=== PATIENT | male | born 1940 | race Caucasian/White ===

== ENCOUNTER → 2016-08-12 | Outpatient (CLI) | payer MEDICARE, BC | LOC: MW.CHIM 08:00 | PROVIDERS: ATTEND Internal Medicine | DX: I10 Essential (primary) hypertension (principal); E78.5 Hyperlipidemia, unspecified; M19.049 Primary osteoarthritis, unspecified hand; Z90.79 Acquired absence of other genital organ(s) | CPT/HCPCS: 99214 ==

== ENCOUNTER 2017-07-23 07:10 | Day surgery (SDC) | payer MEDICARE, BC ==
[2017-07-23] MEDS ORDERED: Propofol 200 MG/20 ML SDV ONE (07:15)
[2017-07-23] MEDS ORDERED: fentaNYL 100 MCG/2 ML SDV ONE (07:15)
[2017-07-23] MEDS ORDERED: Lidocaine 2% 5 ML SDV ONE (07:15)
[2017-07-23] MEDS ORDERED: Bupivacaine 25%/EPINEPHrine/PF 30 ML ONE (07:33)
[2017-07-23] MEDS ORDERED: ceFAZolin/Dextrose,Iso-Osmotic 2 GM/50 ML Duplex Bag IV ONE (07:56)
--- NOTE | 2017-07-23 07:59 | PCM.PREANE ---
Preanesthetic Assessment - Anesthesia/Transfusion/Family Hx Anesthesia History: Prior Anesthesia Without Reaction Transfusion History: Prior Transfusion Without Reaction - Review of Systems General: No Symptoms Pulmonary: No Symptoms Cardiovascular: No Symptoms (took am metoprolol) Gastrointestinal: No Symptoms Neurological: Other (bilateral hand pain/numbnesss) Other: Reports: None - Physical Assessment NPO Status Date: 07/22/17 NPO Status Time: 22:00 O2 Sat by Pulse Oximetry: 94 Respiratory Rate: 16 Vital Signs: Last Vital Signs Temp 97.5 F 07/23/17 07:15 Pulse 69 07/23/17 07:15 Resp 16 07/23/17 07:15 BP 133/84 07/23/17 07:15 Pulse Ox 94 L 07/23/17 07:15 Height: 5 ft 6 in Weight: 172 lb ASA Class: 3 Mental Status: Alert & Oriented x3 Airway Class: Mallampati = 2 Dentition: Reports: Normal Dentition, [place](s) Thyro-Mental Finger Breadths: 3 Mouth Opening Finger Breadths: 3 ROM/Head Extension: Full Lungs: Clear to Auscultation, Normal Respiratory Effort Cardiovascular: Regular Rate, No Murmurs - Allergies Allergies/Adverse Reactions: Allergies Allergy/AdvReac Type Severity Reaction Status Date / Time No Known Allergies Allergy Verified 07/21/17 09:18 - Blood Blood Available: No Product(s) Available: None - Anesthesia Plan Pre-Op Medication Ordered: None - Acknowledgements Anesthesia Type Planned: MAC (local by surgeon) Pt an Appropriate Candidate for the Planned Anesthesia: Yes Alternatives and Risks of Anesthesia Discussed w Pt/Guardian: Yes Pt/Guardian Understands and Agrees with Anesthesia Plan: Yes PreAnesthesia Questionnaire HEENT History: Reports: Other (See Below) Other HEENT History: wears glasses, has upper denture and lower partial removable denture Cardiovascular History: Reports: High Cholesterol, Hypertension Genitourinary History: Reports: Other (See Below) Other Genitourinary History: hx of prostate cancer Musculoskeletal History: Reports: Arthritis, Gout Other Musculoskeletal History: hx of arthritis in hands Oncologic (Cancer) History: Reports: Prostate - Past Surgical History Male Surgical History: Reports: Prostatectomy Other Male Surgeries/Procedures: Radical Retropubic Prostatectomy Neurological Surgical History: Reports: Laminectomy Other Oncologic Surgeries/Procedures: prostatectomy - SUBSTANCE USE Smoking Status *Q: Never Smoker Second Hand Smoke Exposure: No Days Per Week of Alcohol Use: 5 Number of Drinks Per Day: 2 Total Drinks Per Week: 10 Recreational Drug Use History: No - HOME MEDS Home Medications: Home Meds Aspirin [Adult Low Dose Aspirin EC] 81 mg PO ASDIRECTED 07/21/17 [History] Diclofenac Sodium 1 dose TOP QID PRN 07/21/17 [History] Lisinopril 20 mg PO DAILY 07/21/17 [History] Metoprolol Succinate 25 mg PO DAILY 07/21/17 [History] atorvaSTATin Calcium [Atorvastatin Calcium] 10 mg PO BEDTIME 07/21/17 [History] - CURRENT (IN HOUSE) MEDS Current Meds: Current Medications Bupivacaine HCl/Epinephrine Bitart (Marcaine 0.25%/Epinephrine 1:200,000) 10 ml INJECT ONETIME ONE Stop: 07/23/17 08:01 Cefazolin Sodium/Dextrose 2 gm (/ Premix) 50 mls @ 100 mls/hr IV ONETIME ONE Stop: 07/23/17 08:29 Lactated Ringer's (Ringers, Lactated) 1,000 mls @ 125 mls/hr IV ASDIRECTED COUNTS INCLUDE 234 BEDS AT THE [facility] Last Admin: 07/23/17 07:39 Dose: 125 mls/hr Tramadol HCl (Ultram) 50 mg PO Q4H PRN PRN Reason: Pain Discontinued Medications Fentanyl (Sublimaze) Confirm Administered Dose 100 mcg .ROUTE .STK-MED ONE Stop: 07/23/17 07:16 Bupivacaine HCl/Epinephrine Bitart (Sensorc Mpf 0.25%-Epi [id number]) Confirm Administered Dose 30 mls @ as directed .ROUTE .STK-MED ONE Stop: 07/23/17 07:34 Lidocaine (Xylocaine-Mpf 2%) Confirm Administered Dose 5 ml .ROUTE .STK-MED ONE Stop: 07/23/17 07:16 Propofol (Diprivan 20 Ml) Confirm Administered Dose 400 mg .ROUTE .STK-MED ONE Stop: 07/23/17 07:16
[2017-07-23] MEDS ORDERED: Bupivacaine 0.25%/EPINEPHrine 1:200,000 10 ML SDV INJECT ONE (08:00)
[2017-07-23] MEDS ORDERED: Lactated Ringers 1,000 ML IV SCH (08:00)
[2017-07-23] MEDS ORDERED: traMADol 50 MG Tab PO PRN (08:00)
[2017-07-23] MEDS ORDERED: ceFAZolin 2 GM in Premix Bag 1 BAG IV ONE (08:00)
--- NOTE | 2017-07-23 09:15 | PCM48HPAN ---
Post Anesthesia Note - EVALUATION WITHIN 48HRS OF ANESTHETIC Vital Signs in Normal Range: Yes Patient Participated in Evaluation: Yes Respiratory Function Stable: Yes Airway Patent: Yes Cardiovascular Function Stable: Yes Hydration Status Stable: Yes Pain Control Satisfactory: Yes Nausea and Vomiting Control Satisfactory: Yes Mental Status Recovered: Yes Resp Rate: 16 - COMMENTS/OBSERVATIONS Free Text/Narrative:: direct to phase 2 PACU, fully awake
[2017-07-23 09:33] VITALS: BP 110/59
--- NOTE | 2017-07-26 12:36 | PCM.OPNOTE ---
- General Post-Op/Procedure Note Date of Surgery/Procedure: 07/23/17 Operative Procedure(s): right carpal tunnel release Pre Op Diagnosis: right carpal tunnel syndrome Post-Op Diagnosis: Same Anesthesia Technique: Local, MAC Primary Surgeon: Radha Acuña [employer] Blasting: Violet David Complications: None Condition: Good
--- NOTE | 2017-07-26 20:41 | OR ---
SURGEON: BRETT CARRILLO MD DATE OF PROCEDURE: 07/23/2017 PREOPERATIVE DIAGNOSIS: Right carpal tunnel syndrome. POSTOPERATIVE DIAGNOSIS: Right carpal tunnel syndrome. PROCEDURE: Right carpal tunnel release. FIELD OPERATOR: MELE Hernandez ANESTHESIA: Local MAC. INDICATIONS: The patient is a 77-year-old gentleman seen today in evaluation for carpal tunnel syndrome. He does have significant involvement with permanent numbness and lacks improvement with conservative management. Risks and benefits were included, but not limited to, bleeding, infection, damage to underlying or overlying structures, possible need for future interventions, possible scarring. He also understands that he may not get full recovery given this extent of involvement. He would like to proceed. PROCEDURE IN DETAIL: After informed consent was obtained and placed on the chart, the patient was brought to the operating theater in supine position. After adequate anesthesia was obtained, the area was prepped and draped in normal fashion. Time-out was completed to confirm site and side. 0.25% Marcaine with epinephrine was injected into the area of the median nerve in a field block. The arm was then exsanguinated and the tourniquet was insufflated to 200 mmHg. Attention was then paid to dissection over the transverse carpal ligament and dissection was carried through the skin and subcutaneous tissues using a 15 blade until the ligament was reached. Once reached, dissection was carried distally and proximally under direct visualization using a Littler scissor. Once adequately released, the area was copiously irrigated and closed using a 5- 0 nylon stitch in a horizontal mattress fashion. The wound was then dressed with Xeroform fluffs and a Kerlix gauze dressing and a 2-inch Krish wrap. The tourniquet was desufflated at the end of the case. The patient tolerated the procedure well. All counts needles were correct at the end of the case. FOLLOWUP INSTRUCTIONS: The patient will see us in 10 to 14 days, sooner if any problems, questions, or concerns. He was given a prescription for pain control, if needed tramadol. HEGGTHE / ELEONORA /[id number]
== END 2017-07-23 09:26 | disposition home or self-care (01) ==
LOC: MW.SDS 07:10
PROVIDERS: ATTEND Plastic Surgery
DX: G56.01 Carpal tunnel syndrome, right upper limb (principal); E11.9 Type 2 diabetes mellitus without complications; E78.5 Hyperlipidemia, unspecified; I10 Essential (primary) hypertension; Z79.82 Long term (current) use of aspirin; Z79.899 Other long term (current) drug therapy; Z72.0 Tobacco use
CPT/HCPCS: 64721; J0690; J3010; J7120; 01810; J2704

== ENCOUNTER 2017-08-18 06:39 | Day surgery (SDC) | payer MEDICARE, BC ==
--- NOTE | 2017-08-18 07:04 | PCM.PREANE ---
Preanesthetic Assessment - Anesthesia/Transfusion/Family Hx Anesthesia History: Prior Anesthesia Without Reaction Family History of Anesthesia Reaction: No Transfusion History: No Prior Transfusion(s) Intubation History: Unknown - Review of Systems General: No Symptoms Pulmonary: No Symptoms Cardiovascular: No Symptoms Gastrointestinal: No Symptoms Neurological: No Symptoms Other: Reports: None - Physical Assessment Height: 1.68 m Weight: 78.018 kg ASA Class: 2 Mental Status: Alert & Oriented x3 Airway Class: Mallampati = 2 Dentition: Reports: Dentures (upper), Partial (lower) Thyro-Mental Finger Breadths: 3 Mouth Opening Finger Breadths: 3 ROM/Head Extension: Full Lungs: Clear to Auscultation, Normal Respiratory Effort Cardiovascular: Regular Rate, Regular Rhythm - Allergies Allergies/Adverse Reactions: Allergies Allergy/AdvReac Type Severity Reaction Status Date / Time No Known Allergies Allergy Verified 07/21/17 09:18 - Blood Blood Available: No - Anesthesia Plan Pre-Op Medication Ordered: None Beta Donaldo: Metoprolol Med Last Dose Date: 08/18/17 Med Last Dose Time: 05:30 - Acknowledgements Anesthesia Type Planned: MAC Pt an Appropriate Candidate for the Planned Anesthesia: Yes Alternatives and Risks of Anesthesia Discussed w Pt/Guardian: Yes Pt/Guardian Understands and Agrees with Anesthesia Plan: Yes PreAnesthesia Questionnaire HEENT History: Reports: Other (See Below) Other HEENT History: wears glasses, has upper denture and lower partial removable denture Cardiovascular History: Reports: High Cholesterol, Hypertension Genitourinary History: Reports: Other (See Below) Other Genitourinary History: hx of prostate cancer Musculoskeletal History: Reports: Arthritis, Gout Other Musculoskeletal History: hx of arthritis in hands Oncologic (Cancer) History: Reports: Prostate - Past Surgical History Head Surgeries/Procedures: Reports: None Male Surgical History: Reports: Prostatectomy Other Male Surgeries/Procedures: Radical Retropubic Prostatectomy Neurological Surgical History: Reports: Laminectomy Musculoskeletal Surgical History: Reports: Carpal Tunnel (right) Other Oncologic Surgeries/Procedures: prostatectomy - SUBSTANCE USE Smoking Status *Q: Never Smoker Second Hand Smoke Exposure: No Days Per Week of Alcohol Use: 5 Number of Drinks Per Day: 2 Total Drinks Per Week: 10 Recreational Drug Use History: No - HOME MEDS Home Medications: Home Meds Aspirin [Adult Low Dose Aspirin EC] 81 mg PO ASDIRECTED 07/21/17 [History] Diclofenac Sodium 1 dose TOP QID PRN 07/21/17 [History] Lisinopril 20 mg PO DAILY 07/21/17 [History] Metoprolol Succinate 25 mg PO DAILY 07/21/17 [History] atorvaSTATin Calcium [Atorvastatin Calcium] 10 mg PO BEDTIME 07/21/17 [History] traMADol [Ultram] 50 mg PO Q4H PRN #30 tablet 07/23/17 [Rx] - CURRENT (IN HOUSE) MEDS Current Meds: Current Medications Bupivacaine HCl/Epinephrine Bitart (Marcaine 0.25%/Epinephrine 1:200,000) 10 ml INJECT ONETIME ONE Stop: 08/18/17 08:01 Cefazolin Sodium/Dextrose 2 gm (/ Premix) 50 mls @ 100 mls/hr IV ONETIME ONE Stop: 08/18/17 08:29 Lactated Ringer's (Ringers, Lactated) 1,000 mls @ 125 mls/hr IV ASDIRECTED ZOHAIB Tramadol HCl (Ultram) 50 mg PO Q4H PRN PRN Reason: Pain
[2017-08-18] MEDS ORDERED: Bupivacaine 25%/EPINEPHrine/PF 30 ML ONE (07:17)
[2017-08-18] MEDS ORDERED: Lidocaine 2% 5 ML SDV ONE (07:21)
[2017-08-18] MEDS ORDERED: Propofol 200 MG/20 ML SDV ONE (07:21)
[2017-08-18] MEDS ORDERED: fentaNYL 100 MCG/2 ML SDV ONE (07:21)
[2017-08-18] MEDS ORDERED: ceFAZolin/Dextrose,Iso-Osmotic 2 GM/50 ML Duplex Bag IV ONE (07:23)
[2017-08-18] MEDS ORDERED: Bupivacaine 0.25%/EPINEPHrine 1:200,000 10 ML SDV INJECT ONE (08:00)
[2017-08-18] MEDS ORDERED: ceFAZolin 2 GM in Premix Bag 1 BAG IV ONE (08:00)
[2017-08-18] MEDS ORDERED: traMADol 50 MG Tab PO PRN (08:00)
[2017-08-18] MEDS ORDERED: Lactated Ringers 1,000 ML IV SCH (08:00)
--- NOTE | 2017-08-18 08:47 | PCM.POSTAN ---
POST ANESTHESIA ASSESSMENT - MENTAL STATUS Mental Status: Alert, Oriented - RESPIRATORY Respiratory Status: Respiratory Rate WNL, Airway Patent, O2 Saturation Stable - CARDIOVASCULAR CV Status: Pulse Rate WNL, Blood Pressure Stable - GASTROINTESTINAL GI Status: No Symptoms - PAIN Pain Score: 0 - POST OP HYDRATION Hydration Status: Adequate & Stable - OBSERVATIONS Free Text/Narrative:: No anesthesia complications
--- NOTE | 2017-08-18 08:51 | PCM48HPAN ---
Post Anesthesia Note - EVALUATION WITHIN 48HRS OF ANESTHETIC Vital Signs in Normal Range: Yes Patient Participated in Evaluation: Yes Respiratory Function Stable: Yes Airway Patent: Yes Cardiovascular Function Stable: Yes Hydration Status Stable: Yes Pain Control Satisfactory: Yes Nausea and Vomiting Control Satisfactory: Yes Mental Status Recovered: Yes Resp Rate: 12 - COMMENTS/OBSERVATIONS Free Text/Narrative:: no anesthesia problems
[2017-08-18 10:02] VITALS: BP 111/69
--- NOTE | 2017-08-18 15:46 | PCM.OPNOTE ---
- General Post-Op/Procedure Note Date of Surgery/Procedure: 08/18/17 Operative Procedure(s): left carpal tunnel release Pre Op Diagnosis: left carpal tunnel syndrome Post-Op Diagnosis: Same Anesthesia Technique: Local, MAC Primary Surgeon: Radha Acuña [employer] Receptionist: Violet David Complications: None Condition: Good Free Text/Narrative:: Intake & Output 08/17/17 08/18/17 08/18/17 23:59 07:59 15:59 Intake Total 850 Balance 850
--- NOTE | 2017-08-23 09:57 | OR ---
SURGEON: RADHA ACUÑA MD DATE OF PROCEDURE: 08/18/2017 PREOPERATIVE DIAGNOSIS: Left carpal tunnel syndrome. POSTOPERATIVE DIAGNOSIS: Left carpal tunnel syndrome. PROCEDURE PERFORMED: Left carpal tunnel release. PRIMARY SURGEON: Radha Acuña MD AGRICULTURAL PRODUCE SORTER: MELE Hernandez ANESTHESIA: Local MAC. INDICATIONS: Mr. Clements is a 77-year-old gentleman with carpal tunnel syndrome on the left side. He has previously had a right release and has done well with this. He is here for left release. The risks and benefits were again discussed, and all questions answered. Risks were including, but not limited to, bleeding, infection, damage to underlying or overlying structures, possible need for future interventions, and possible scarring. PROCEDURE IN DETAIL: After informed consent was obtained and placed on the chart, the patient was brought to the operating theater and laid in the supine position. After adequate local MAC anesthesia was obtained, the area was prepped and draped, and a time-out was completed to confirm side and site. The arm was exsanguinated, and tourniquet was insufflated to 200 mmHg, and then a #15 blade was used to dissect over the skin and subcutaneous tissue on the transverse carpal ligament. The ligament was breached, and dissection was then carried distally and proximally under direct visualization using a Littler scissor. Once adequately released, the area was copiously irrigated, and the skin was closed using 5-0 nylon stitch in a horizontal mattress fashion. The wounds were dressed with Xeroform, fluffs, and a Kerlix gauze dressing and a 2- inch Krish wrap. The patient tolerated this well. All counts and needles were correct at the end of the case. FOLLOWUP INSTRUCTIONS: The patient did not use any tramadol last time and still has residuals if needed. He will follow up with us in 2 weeks or sooner if there are any problems, questions, or concerns. HEGGTHE / MODL /[id number]
== END 2017-08-18 08:58 | disposition home or self-care (01) ==
LOC: MW.SDS 06:39
PROVIDERS: ATTEND Plastic Surgery
DX: G56.02 Carpal tunnel syndrome, left upper limb (principal); E11.9 Type 2 diabetes mellitus without complications; E78.5 Hyperlipidemia, unspecified; I10 Essential (primary) hypertension; Z79.82 Long term (current) use of aspirin; Z72.0 Tobacco use
CPT/HCPCS: 64721; J0690; J3010; J7120; J2704

== ENCOUNTER 2018-10-16 23:41 | Observation (INO) | payer MEDICARE, BC ==
[2018-10-16] MEDS ORDERED: Sodium Chloride 0.9% 10 ML Syringe FLUSH PRN (23:52)
[2018-10-16] MEDS ORDERED: Sodium Chloride 0.9% 2.5 ML Syringe FLUSH PRN (23:52)
[2018-10-16] MEDS ORDERED: Sodium Chloride 0.9% 1,000 ML IV ONE (23:53)
--- NOTE | 2018-10-16 23:58 | EDM.PDOC ---
ED HPI GENERAL MEDICAL PROBLEM - General Stated Complaint: AMB Time Seen by Provider: 10/16/18 23:46 - History of Present Illness INITIAL COMMENTS - FREE TEXT/NARRATIVE: HISTORY AND PHYSICAL: History of present illness: The patient is a 78-year-old male who follows and in our internal medicine clinic and has a history of hypercholesterolemia hypertension prostate cancer in the past and is currently being followed there for new hematuria and presents with a near syncopal event. The patient takes an aspirin daily and says that he got woozy/lightheaded when he got up to go to the bathroom and he went to his knees and then proceeded to collapse to the floor. He did not hit his head pass out or blackout and he did not completely pass out but he felt very weak. He had no chest pain shortness of breath palpitations or headache prior to these events nor after these events. He has no abdominal pain vomiting or diarrhea. He says these having hematuria and he is voiding but the stream is not very strong but he does not feel like he is incompletely voiding. He has no back or flank pain. As a result of going to his knees and the ground he has no extremity complaints or any bony tenderness. The patient tells me that he has actually no complaints of pain palpitations shortness of breath while lying in the bed here in the ED. He does admit that he doesn't drink a lot of fluids on a regular basis. This case was called as a trauma alert because the patient fell and is on daily aspirin. The patient has had labs done recently in the clinic on Wednesday which I will review Review of systems: As per history of present illness and below otherwise all systems reviewed and negative. Past medical history: As per history of present illness and as reviewed below otherwise noncontributory. Surgical history: As per history of present illness and as reviewed below otherwise noncontributory. Social history: No reported history of drug or alcohol abuse. Family history: As per history of present illness and as reviewed below otherwise noncontributory. Physical exam: General: Well-developed well-nourished man who is nontoxic and moves easily in the ED without distress. He speaking clearly without distress. Vital signs are noted by me HEENT: Atraumatic, normocephalic, pupils reactive, there is slight conjunctival pallor but no scleral icterus, mucous membranes moist, throat clear, neck supple , nontender, trachea midline. Lungs: Clear to auscultation, breath sounds equal bilaterally, chest nontender. Heart: S1S2, regular, negative for clicks, rubs, or JVD. Abdomen: Soft, nondistended, nontender. Negative for masses or hepatosplenomegaly. Negative for costovertebral tenderness. Pelvis: Stable nontender. Genitourinary: Deferred. Rectal: Deferred. Extremities: Atraumatic, negative for cords or calf pain. Neurovascular unremarkable. Full range of motion without any defects or deficits specifically the knees bilaterally have no soft tissue swelling or tenderness Neuro: Awake, alert, oriented. Cranial nerves II through XII unremarkable. Cerebellum unremarkable. Motor and sensory unremarkable throughout. Exam nonfocal. Back: There are no midline step-offs in his defects of the thoracic or lumbar spine nor the cervical spine and there is no soft tissue injuries appreciated Diagnostics: EKG CBC CMP INR CPK troponin TSH UA with reflex bladder scan for postvoid residual CT scan of the head chest x-ray orthostatic vitals Therapeutics: IV O2 monitor IV fluids As this case was called at a trauma alert I will involve the trauma surgeon as needed pending the results of above On October 10 the patient had a CBC revealing a WBC count of 6.86 and hemoglobin of 14.1 and a UA which was grossly bloody with RBCs but the culture was negative. The patient had a CPK done on October 14 that was [address] scan of the abdomen and pelvis on October 13 which revealed a right pelvic sidewall mass with markedly irregular calcifications within the prostate gland. There was a suspected urinary bladder mass also present and the findings were worrisome for malignancy. Patient produced only a small amount of bloody urine without clots but his postvoid residual was only 38 mL. Orthostatic vitals are positive with his blood pressure in the supine position being 104/56 and a heart rate of 66 and in the upright position his blood pressure was 75/43 with a heart rate of 86 and he is currently receiving IV fluids I discussed all testing results with the patient and at bedside. They have an appointment with Dr. Mccall on Wednesday and are supposed to get a CAT scan with contrast performed later today at 11 AM. I discussed with them that this may not occur and may need to be rescheduled and to mention that to the nurse when he is on the floor this morning. I told him that although currently he is not anemic that may change after his fluid resuscitation. He currently looks much improved with good coloring and is in good spirits without any complaints. Able to admission 0156: Case was discussed with Dr. Faustin and he agrees that this is not a trauma admission and is comfortable with the patient being admitted to the hospitalist with him available as needed. 0200: Case was discussed with Dr. Pearl who is aware of this case completely and the care plan done as an outpatient and now here in the ED and is agreeable for admission. He is aware of my conversation with Dr. Faustin. Impression: Near syncope; history of hematuria with new bladder mass Definitive disposition and diagnosis as appropriate pending reevaluation and review of above. - Related Data Allergies Allergy/AdvReac Type Severity Reaction Status Date / Time No Known Allergies Allergy Verified 10/17/18 00:07 Home Meds: Home Meds Aspirin [Adult Low Dose Aspirin EC] 81 mg PO ASDIRECTED 07/21/17 [History] Lisinopril 20 mg PO DAILY 07/21/17 [History] Metoprolol Succinate 25 mg PO DAILY 07/21/17 [History] atorvaSTATin Calcium [Atorvastatin Calcium] 10 mg PO BEDTIME 07/21/17 [History] Past Medical History HEENT History: Reports: Other (See Below) Other HEENT History: wears glasses, has upper denture and lower partial removable denture Cardiovascular History: Reports: High Cholesterol, Hypertension Genitourinary History: Reports: Other (See Below) Other Genitourinary History: hx of prostate cancer Musculoskeletal History: Reports: Arthritis, Gout Other Musculoskeletal History: hx of arthritis in hands Oncologic (Cancer) History: Reports: Prostate - Past Surgical History Head Surgeries/Procedures: Reports: None Male Surgical History: Reports: Prostatectomy Other Male Surgeries/Procedures: Radical Retropubic Prostatectomy Neurological Surgical History: Reports: Laminectomy Musculoskeletal Surgical History: Reports: Carpal Tunnel Other Oncologic Surgeries/Procedures: prostatectomy ED ROS GENERAL - Review of Systems Review Of Systems: ROS reveals no pertinent complaints other than HPI. ED EXAM, GENERAL - Physical Exam Exam: See Below (See dictation) Course - Vital Signs Last Recorded V/S: Last Vital Signs Temp 35.6 C 10/16/18 23:43 Pulse 71 10/16/18 23:43 Resp 18 10/16/18 23:43 BP 138/67 10/16/18 23:43 Pulse Ox 96 10/17/18 01:10 Orthostatic Blood Pressure [ 75/43 Standing] Orthostatic Blood Pressure [ 99/53 Sitting] Orthostatic Blood Pressure [ 104/56 Supine] - Orders/Labs/Meds Orders: Active Orders 24 hr Category Date Time Status Patient Status [ADT] Stat ADT 10/17/18 02:00 Ordered Bladder Scan [RC] ASDIRECTED Care 10/16/18 23:53 Active Cardiac Monitoring [RC] . DIRECTED Care 10/16/18 23:52 Active EKG Documentation Completion [RC] STAT Care 10/16/18 23:52 Active Orthostatic Vital Signs [RC] ASDIRECTED Care 10/16/18 23:52 Active Oxygen Therapy, ED [RC] ASDIRECTED Care 10/16/18 23:52 Active Pulse Oximetry [RC] ASDIRECTED Care 10/16/18 23:52 Active Sodium Chloride 0.9% @ 125 MLS/HR (1,000ml) Med 10/17/18 02:00 Ordered Sodium Chloride 0.9% [Normal Saline] 1,000 ml IV ASDIRECTED Sodium Chloride 0.9% [Saline Flush] Med 10/16/18 23:52 Active 10 ml FLUSH ASDIRECTED PRN Sodium Chloride 0.9% [Saline Flush] Med 10/16/18 23:52 Active 2.5 ml FLUSH ASDIRECTED PRN Saline Lock Insert [OM.PC] Stat Oth 10/16/18 23:52 Ordered Medication Orders Sodium Chloride (Normal Saline) 1,000 mls @ 125 mls/hr IV ASDIRECTED ZOHAIB Sodium Chloride (Saline Flush) 10 ml FLUSH ASDIRECTED PRN PRN Reason: Keep Vein Open Sodium Chloride (Saline Flush) 2.5 ml FLUSH ASDIRECTED PRN PRN Reason: Keep Vein Open Labs: Laboratory Tests 10/17/18 10/17/18 10/17/18 Range/Units 00:44 00:44 00:44 WBC 13.18 H (4.0-11.0) K/uL RBC 4.71 (4.50-5.90) M/uL Hgb 15.4 (13.0-17.0) g/dL Hct 44.2 (38.0-50.0) % MCV 93.8 (80.0-98.0) fL MCH 32.7 H (27.0-32.0) pg MCHC 34.8 (31.0-37.0) g/dL RDW Std Deviation 42.6 (28.0-62.0) fl RDW Coeff of Jeanie 13 (11.0-15.0) % Plt Count 243 (150-400) K/uL MPV 9.50 (7.40-12.00) fL Neut % (Auto) 87.3 H (48.0-80.0) % Lymph % (Auto) 5.5 L (16.0-40.0) % [place] % (Auto) 5.3 (0.0-15.0) % Eos % (Auto) 1.7 (0.0-7.0) % Baso % (Auto) 0.2 (0.0-1.5) % Neut # (Auto) 11.5 H (1.4-5.7) K/uL Lymph # (Auto) 0.7 (0.6-2.4) K/uL [place] # (Auto) 0.7 (0.0-0.8) K/uL Eos # (Auto) 0.2 (0.0-0.7) K/uL Baso # (Auto) 0.0 (0.0-0.1) K/uL INR 1.02 Sodium 135 L (136-148) mmol/L Potassium 4.3 (3.5-5.1) mmol/L Chloride 99 (98-107) mmol/L Carbon Dioxide 26.1 (21.0-32.0) mmol/L BUN 21 H (7.0-18.0) mg/dL Creatinine 1.2 (0.8-1.3) mg/dL Est Cr Clr Drug Dosing 47.43 mL/min Estimated GFR (MDRD) 58.6 ml/min Glucose 129 H (74-106) mg/dL Calcium 9.6 (8.5-10.1) mg/dL Total Bilirubin 0.7 (0.2-1.0) mg/dL AST 21 (15-37) IU/L ALT 25 (14-63) IU/L Alkaline Phosphatase 137 H (46-116) U/L Creatine Kinase 146 (26-308) U/L Troponin I < 0.050 (0.000-0.056) ng/mL Total Protein 7.8 (6.4-8.2) g/dL Albumin 4.3 (3.4-5.0) g/dL Globulin 3.5 (2.6-4.0) g/dL Albumin/Globulin Ratio 1.2 (0.9-1.6) TSH 3rd Generation 2.49 (0.36-3.74) uIU/mL Urine Color Urine Appearance Urine pH (5.0-8.0) Ur Specific [place] (1.001-1.035) Urine Protein (NEGATIVE) mg/dL Urine Glucose (UA) (NEGATIVE) mg/dL Urine Ketones (NEGATIVE) mg/dL Urine Occult Blood (NEGATIVE) Urine Nitrite (NEGATIVE) Urine Bilirubin (NEGATIVE) Urine Urobilinogen (<2.0) EU/dL Ur Leukocyte Esterase (NEGATIVE) Urine RBC (0-2/HPF) Urine WBC (0-5/HPF) Ur Epithelial Cells (NONE-FEW) Urine Bacteria (NEGATIVE) Urinalysis Comment 10/17/18 Range/Units 00:50 WBC (4.0-11.0) K/uL RBC (4.50-5.90) M/uL Hgb (13.0-17.0) g/dL Hct (38.0-50.0) % MCV (80.0-98.0) fL MCH (27.0-32.0) pg MCHC (31.0-37.0) g/dL RDW Std Deviation (28.0-62.0) fl RDW Coeff of Jeanie (11.0-15.0) % Plt Count (150-400) K/uL MPV (7.40-12.00) fL Neut % (Auto) (48.0-80.0) % Lymph % (Auto) (16.0-40.0) % [place] % (Auto) (0.0-15.0) % Eos % (Auto) (0.0-7.0) % Baso % (Auto) (0.0-1.5) % Neut # (Auto) (1.4-5.7) K/uL Lymph # (Auto) (0.6-2.4) K/uL [place] # (Auto) (0.0-0.8) K/uL Eos # (Auto) (0.0-0.7) K/uL Baso # (Auto) (0.0-0.1) K/uL INR Sodium (136-148) mmol/L Potassium (3.5-5.1) mmol/L Chloride (98-107) mmol/L Carbon Dioxide (21.0-32.0) mmol/L BUN (7.0-18.0) mg/dL Creatinine (0.8-1.3) mg/dL Est Cr Clr Drug Dosing mL/min Estimated GFR (MDRD) ml/min Glucose (74-106) mg/dL Calcium (8.5-10.1) mg/dL Total Bilirubin (0.2-1.0) mg/dL AST (15-37) IU/L ALT (14-63) IU/L Alkaline Phosphatase (46-116) U/L Creatine Kinase (26-308) U/L Troponin I (0.000-0.056) ng/mL Total Protein (6.4-8.2) g/dL Albumin (3.4-5.0) g/dL Globulin (2.6-4.0) g/dL Albumin/Globulin Ratio (0.9-1.6) TSH 3rd Generation (0.36-3.74) uIU/mL Urine Color RED Urine Appearance CLOUDY Urine pH 6.0 (5.0-8.0) Ur Specific [place] >= 1.030 (1.001-1.035) Urine Protein 100 H (NEGATIVE) mg/dL Urine Glucose (UA) NEGATIVE (NEGATIVE) mg/dL Urine Ketones TRACE H (NEGATIVE) mg/dL Urine Occult Blood LARGE H (NEGATIVE) Urine Nitrite NEGATIVE (NEGATIVE) Urine Bilirubin NEGATIVE (NEGATIVE) Urine Urobilinogen 0.2 (<2.0) EU/dL Ur Leukocyte Esterase NEGATIVE (NEGATIVE) Urine RBC TOO NUMEROUS TO CT (0-2/HPF) Urine WBC 0-2 (0-5/HPF) Ur Epithelial Cells RARE (NONE-FEW) Urine Bacteria RARE (NEGATIVE) Urinalysis Comment Meds: Medications Generic Name Dose Route Start Last Admin Trade Name Freq PRN Reason Stop Dose Admin Sodium Chloride 1,000 mls @ 125 mls/hr 10/17/18 02:00 Normal Saline IV ASDIRECTED ZOHAIB Sodium Chloride 10 ml 10/16/18 23:52 Saline Flush FLUSH ASDIRECTED PRN Keep Vein Open Sodium Chloride 2.5 ml 10/16/18 23:52 Saline Flush FLUSH ASDIRECTED PRN Keep Vein Open Discontinued Medications Generic Name Dose Route Start Last Admin Trade Name Jaimeq PRN Reason Stop Dose Admin Sodium Chloride 1,000 mls @ 999 mls/hr 10/16/18 23:53 10/17/18 00:40 Normal Saline IV 10/17/18 00:53 999 mls/hr STAT ONE Administration Departure - Departure Time of Disposition: 02:03 Disposition: Refer to Observation Condition: Good Clinical Impression: Near syncope - Discharge Information Referrals: Soy Palomares MD [Primary Care Provider] - - My Orders Last 24 Hours: My Active Orders 10/16/18 23:52 Cardiac Monitoring [RC] . DIRECTED EKG Documentation Completion [RC] STAT Orthostatic Vital Signs [RC] ASDIRECTED Oxygen Therapy, ED [RC] ASDIRECTED Pulse Oximetry [RC] ASDIRECTED Sodium Chloride 0.9% [Saline Flush] 10 ml FLUSH ASDIRECTED PRN Sodium Chloride 0.9% [Saline Flush] 2.5 ml FLUSH ASDIRECTED PRN Saline Lock Insert [OM.PC] Stat 10/16/18 23:53 Bladder Scan [RC] ASDIRECTED 10/17/18 02:00 Patient Status [ADT] Stat Sodium Chloride 0.9% @ 125 MLS/HR (1,000ml) Sodium Chloride 0.9% [Normal Saline ] 1,000 ml IV ASDIRECTED - Assessment/Plan Last 24 Hours: My Active Orders 10/16/18 23:52 Cardiac Monitoring [RC] . DIRECTED EKG Documentation Completion [RC] STAT Orthostatic Vital Signs [RC] ASDIRECTED Oxygen Therapy, ED [RC] ASDIRECTED Pulse Oximetry [RC] ASDIRECTED Sodium Chloride 0.9% [Saline Flush] 10 ml FLUSH ASDIRECTED PRN Sodium Chloride 0.9% [Saline Flush] 2.5 ml FLUSH ASDIRECTED PRN Saline Lock Insert [OM.PC] Stat 10/16/18 23:53 Bladder Scan [RC] ASDIRECTED 10/17/18 02:00 Patient Status [ADT] Stat Sodium Chloride 0.9% @ 125 MLS/HR (1,000ml) Sodium Chloride 0.9% [Normal Saline ] 1,000 ml IV ASDIRECTED
--- NOTE | 2018-10-17 00:46 | CR ---
INDICATION: Near syncope TECHNIQUE: Chest 1 views COMPARISON: Chest x-ray 01/31/2014 FINDINGS: Cardiovascular and mediastinum: Normal heart size with atherosclerotic calcification. Lungs and pleural spaces: Lungs are clear. No sign of infiltrate or mass. No sign of pleural effusion. No pneumothorax. Bones and soft tissues: No significant findings. IMPRESSION: No acute findings and no significant changes from the prior exam. Dictated by Channing Gimenez MD @ Oct 17 2018 12:43AM Signed by Dr. Channing Gimenez @ Oct 17 2018 12:44AM
--- NOTE | 2018-10-17 00:48 | CT ---
INDICATION: Near syncope. TECHNIQUE: CT head without contrast. COMPARISON: Head CT 12/07/2013 FINDINGS: CSF spaces: Within normal limits for age. Brain parenchyma: Castillo-white differentiation is distinct. No intracranial bleed or mass effect. Small low-density in the deep white matter. Skull base and calvarium: Mucosal thickening paranasal sinuses. The visualized orbits are grossly unremarkable. No skull fractures. IMPRESSION: 1. No acute findings. No intracranial bleed or mass effect. 2. Mild nonspecific white matter disease, likely microangiopathy. Please note that all CT scans at this facility use dose modulation, iterative reconstruction, and/or weight-based dosing when appropriate to reduce radiation dose to as low as reasonably achievable. Dictated by Channing Gimenez MD @ Oct 17 2018 12:43AM Signed by Dr. Channing Gimenez @ Oct 17 2018 12:47AM
[2018-10-17 01:28] LABS: CHLORIDE,CL 99 mmol/L (98-107); SODIUM,NA 135 mmol/L (136-148)
[2018-10-17] MEDS ORDERED: Sodium Chloride 0.9% 1,000 ML IV SCH ×2 (02:00→04:00)
[2018-10-17] MEDS ORDERED: Sodium Chloride 0.9% 10 ML SDV IV SCH (03:30)
--- NOTE | 2018-10-17 07:17 | PCM.HP ---
H&P History of Present Illness - General Date of Service: 10/17/18 Admit Problem/Dx: Admission Diagnosis/Problem Admission Diagnosis/Problem Syncope Source of Information: Patient History Limitations: Reports: No Limitations - History of Present Illness Initial Comments - Free Text/Narative: Patient is a 78-year-old gentleman who presented to the emergency department late yesterday evening secondary to near syncopal episode. Patient reports that he has been having chronic problem with severe hematuria and he is scheduled to have a CT scan of his pelvis with contrast today. Patient also has a follow-up appointment with urology. Patient said that he been sitting in his chair and felt the urge to urinate. He stood up felt somewhat dizzy when down to his knees. He did not actually hit his head or have loss of consciousness. The patient says that he has felt dehydrated. He has had problems with poor urinary control since his prostatectomy. Patient also says that his initial urine stream is complete blood. The patient had been admitted and fluid resuscitated. The patient has denied any pain. He is currently not dizzy. His symptoms have resolved. Onset of Symptoms: Reports: Sudden Duration of Symptoms: Reports: Hour(s):, Resolved Prior to Arrival Location: Reports: Generalized Quality: Reports: Ache Improves with: Reports: None Worsens with: Reports: None Associated Symptoms: Reports: No Other Symptoms - Related Data Allergies/Adverse Reactions: Allergies Allergy/AdvReac Type Severity Reaction Status Date / Time No Known Allergies Allergy Verified 10/17/18 00:07 Home Medications: Home Meds Aspirin [Adult Low Dose Aspirin EC] 81 mg PO ASDIRECTED 07/21/17 [History] Lisinopril 20 mg PO DAILY 07/21/17 [History] Metoprolol Succinate 25 mg PO DAILY 07/21/17 [History] atorvaSTATin Calcium [Atorvastatin Calcium] 10 mg PO BEDTIME 07/21/17 [History] Past Medical History HEENT History: Reports: Other (See Below) Other HEENT History: wears glasses, has upper denture and lower partial removable denture Cardiovascular History: Reports: High Cholesterol, Hypertension Respiratory History: Reports: None Gastrointestinal History: Reports: None Genitourinary History: Reports: Other (See Below) Other Genitourinary History: hx of prostate cancer Musculoskeletal History: Reports: Arthritis, Gout Other Musculoskeletal History: hx of arthritis in hands Neurological History: Reports: None Psychiatric History: Reports: None Endocrine/Metabolic History: Reports: None Hematologic History: Reports: Anticoagulation Therapy Immunologic History: Reports: None Oncologic (Cancer) History: Reports: Prostate Dermatologic History: Reports: None - Past Surgical History Head Surgeries/Procedures: Reports: None Male Surgical History: Reports: Prostatectomy Other Male Surgeries/Procedures: Radical Retropubic Prostatectomy Neurological Surgical History: Reports: Laminectomy Musculoskeletal Surgical History: Reports: Carpal Tunnel Other Oncologic Surgeries/Procedures: prostatectomy Social & Family History - Tobacco Use Smoking Status *Q: Never Smoker - Caffeine Use Caffeine Use: Reports: Coffee - Recreational Drug Use Recreational Drug Use: No H&P Review of Systems - Review of Systems: Review Of Systems: See Below General: Reports: No Symptoms HEENT: Reports: No Symptoms Pulmonary: Reports: No Symptoms Cardiovascular: Reports: No Symptoms Gastrointestinal: Reports: No Symptoms Genitourinary: Reports: Hematuria Musculoskeletal: Reports: No Symptoms Skin: Reports: No Symptoms Psychiatric: Reports: No Symptoms Neurological: Reports: No Symptoms Hematologic/Lymphatic: Reports: No Symptoms Immunologic: Reports: No Symptoms Exam - Exam Exam: See Below - Vital Signs Vital Signs: Last Vital Signs Temp 36.4 C 10/17/18 02:20 Pulse 77 10/17/18 02:20 Resp 18 10/17/18 02:20 BP 156/83 H 10/17/18 02:20 Pulse Ox 95 10/17/18 02:20 Orthostatic Blood Pressure [ 75/43 Standing] Orthostatic Blood Pressure [ 99/53 Sitting] Orthostatic Blood Pressure [ 104/56 Supine] Weight: 74.797 kg - Exam Quality Assessment: No: Supplemental Oxygen General: Alert, Oriented, Cooperative HEENT: Conjunctiva Clear, EACs Clear, EOMI, Pupils Equal, PERRLA. No: Mucosa Moist & [place] (Dry) Neck: Supple, Trachea Midline Lungs: Clear to Auscultation, Normal Respiratory Effort Cardiovascular: Regular Rate, Regular Rhythm GI/Abdominal Exam: Normal Bowel Sounds, Soft, Non-Tender, No Distention Back Exam: Normal Inspection, Full Range of Motion Extremities: Normal Inspection, Normal Range of Motion, No Pedal Edema Skin: Warm, Dry, Intact Neurological: Cranial Nerves Intact Neuro Extensive - Mental Status: Alert, Oriented x3 Neuro Extensive - Motor, Sensory, Reflexes: CN II-XII Intact Psychiatric: Alert, Normal Affect - Patient Data Lab Results Last 24 hrs: Laboratory Results - last 24 hr 10/17/18 10/17/18 10/17/18 Range/Units 00:44 00:44 00:44 WBC 13.18 H (4.0-11.0) K/uL RBC 4.71 (4.50-5.90) M/uL Hgb 15.4 (13.0-17.0) g/dL Hct 44.2 (38.0-50.0) % MCV 93.8 (80.0-98.0) fL MCH 32.7 H (27.0-32.0) pg MCHC 34.8 (31.0-37.0) g/dL RDW Std Deviation 42.6 (28.0-62.0) fl RDW Coeff of Jeanie 13 (11.0-15.0) % Plt Count 243 (150-400) K/uL MPV 9.50 (7.40-12.00) fL Neut % (Auto) 87.3 H (48.0-80.0) % Lymph % (Auto) 5.5 L (16.0-40.0) % Clay % (Auto) 5.3 (0.0-15.0) % Eos % (Auto) 1.7 (0.0-7.0) % Baso % (Auto) 0.2 (0.0-1.5) % Neut # (Auto) 11.5 H (1.4-5.7) K/uL Lymph # (Auto) 0.7 (0.6-2.4) K/uL Clay # (Auto) 0.7 (0.0-0.8) K/uL Eos # (Auto) 0.2 (0.0-0.7) K/uL Baso # (Auto) 0.0 (0.0-0.1) K/uL INR 1.02 Sodium 135 L (136-148) mmol/L Potassium 4.3 (3.5-5.1) mmol/L Chloride 99 (98-107) mmol/L Carbon Dioxide 26.1 (21.0-32.0) mmol/L BUN 21 H (7.0-18.0) mg/dL Creatinine 1.2 (0.8-1.3) mg/dL Est Cr Clr Drug Dosing 47.43 mL/min Estimated GFR (MDRD) 58.6 ml/min Glucose 129 H (74-106) mg/dL Calcium 9.6 (8.5-10.1) mg/dL Total Bilirubin 0.7 (0.2-1.0) mg/dL AST 21 (15-37) IU/L ALT 25 (14-63) IU/L Alkaline Phosphatase 137 H (46-116) U/L Creatine Kinase 146 (26-308) U/L Troponin I < 0.050 (0.000-0.056) ng/mL Total Protein 7.8 (6.4-8.2) g/dL Albumin 4.3 (3.4-5.0) g/dL Globulin 3.5 (2.6-4.0) g/dL Albumin/Globulin Ratio 1.2 (0.9-1.6) TSH 3rd Generation 2.49 (0.36-3.74) uIU/mL Urine Color Urine Appearance Urine pH (5.0-8.0) Ur Specific [place] (1.001-1.035) Urine Protein (NEGATIVE) mg/dL Urine Glucose (UA) (NEGATIVE) mg/dL Urine Ketones (NEGATIVE) mg/dL Urine Occult Blood (NEGATIVE) Urine Nitrite (NEGATIVE) Urine Bilirubin (NEGATIVE) Urine Urobilinogen (<2.0) EU/dL Ur Leukocyte Esterase (NEGATIVE) Urine RBC (0-2/HPF) Urine WBC (0-5/HPF) Ur Epithelial Cells (NONE-FEW) Urine Bacteria (NEGATIVE) Urinalysis Comment 10/17/18 10/17/18 Range/Units 00:50 05:40 WBC (4.0-11.0) K/uL RBC (4.50-5.90) M/uL Hgb 13.2 (13.0-17.0) g/dL Hct 39.7 (38.0-50.0) % MCV (80.0-98.0) fL MCH (27.0-32.0) pg MCHC (31.0-37.0) g/dL RDW Std Deviation (28.0-62.0) fl RDW Coeff of Jeanie (11.0-15.0) % Plt Count (150-400) K/uL MPV (7.40-12.00) fL Neut % (Auto) (48.0-80.0) % Lymph % (Auto) (16.0-40.0) % Clay % (Auto) (0.0-15.0) % Eos % (Auto) (0.0-7.0) % Baso % (Auto) (0.0-1.5) % Neut # (Auto) (1.4-5.7) K/uL Lymph # (Auto) (0.6-2.4) K/uL Clay # (Auto) (0.0-0.8) K/uL Eos # (Auto) (0.0-0.7) K/uL Baso # (Auto) (0.0-0.1) K/uL INR Sodium (136-148) mmol/L Potassium (3.5-5.1) mmol/L Chloride (98-107) mmol/L Carbon Dioxide (21.0-32.0) mmol/L BUN (7.0-18.0) mg/dL Creatinine (0.8-1.3) mg/dL Est Cr Clr Drug Dosing mL/min Estimated GFR (MDRD) ml/min Glucose (74-106) mg/dL Calcium (8.5-10.1) mg/dL Total Bilirubin (0.2-1.0) mg/dL AST (15-37) IU/L ALT (14-63) IU/L Alkaline Phosphatase (46-116) U/L Creatine Kinase (26-308) U/L Troponin I (0.000-0.056) ng/mL Total Protein (6.4-8.2) g/dL Albumin (3.4-5.0) g/dL Globulin (2.6-4.0) g/dL Albumin/Globulin Ratio (0.9-1.6) TSH 3rd Generation (0.36-3.74) uIU/mL Urine Color RED Urine Appearance CLOUDY Urine pH 6.0 (5.0-8.0) Ur Specific [place] >= 1.030 (1.001-1.035) Urine Protein 100 H (NEGATIVE) mg/dL Urine Glucose (UA) NEGATIVE (NEGATIVE) mg/dL Urine Ketones TRACE H (NEGATIVE) mg/dL Urine Occult Blood LARGE H (NEGATIVE) Urine Nitrite NEGATIVE (NEGATIVE) Urine Bilirubin NEGATIVE (NEGATIVE) Urine Urobilinogen 0.2 (<2.0) EU/dL Ur Leukocyte Esterase NEGATIVE (NEGATIVE) Urine RBC TOO NUMEROUS TO CT (0-2/HPF) Urine WBC 0-2 (0-5/HPF) Ur Epithelial Cells RARE (NONE-FEW) Urine Bacteria RARE (NEGATIVE) Urinalysis Comment Result Diagrams: 10/17/18 05:40 10/17/18 00:44 - Problem List (1) Hematuria of undiagnosed cause SNOMED Code(s): 943225374 ICD Code: R31.9 - HEMATURIA, UNSPECIFIED Status: Chronic Priority: High (2) Hx of prostatectomy SNOMED Code(s): 243438596, 359630949 ICD Code: Z90.79 - ACQUIRED ABSENCE OF OTHER GENITAL ORGAN(S) Status: Chronic Priority: High (3) Near syncope SNOMED Code(s): 441054952 ICD Code: R55 - SYNCOPE AND COLLAPSE Status: Resolved Priority: High Problem List Initiated/Reviewed/Updated: Yes Orders Last 24hrs: Active Orders 24 hr Category Date Time Status Patient Status [ADT] Stat ADT 10/17/18 02:00 Active Bladder Scan [RC] ASDIRECTED Care 10/16/18 23:53 Active Cardiac Monitoring [RC] Q8H Care 10/16/18 23:52 Active Orthostatic Vital Signs [RC] ASDIRECTED Care 10/16/18 23:52 Active Pulse Oximetry [RC] ASDIRECTED Care 10/16/18 23:52 Active Regular Diet [DIET] Diet 10/17/18 Lunch Active HEMOGLOBIN/HEMATOCRIT,HH [HEME] Routine Lab 10/17/18 12:00 Ordered Sodium Chloride 0.9% [Normal Saline] 1,000 ml Med 10/17/18 04:00 Active IV ASDIRECTED Sodium Chloride 0.9% [Saline Flush] Med 10/16/18 23:52 Active 10 ml FLUSH ASDIRECTED PRN Sodium Chloride 0.9% [Saline Flush] Med 10/16/18 23:52 Active 2.5 ml FLUSH ASDIRECTED PRN Saline Lock Insert [OM.PC] Stat Oth 10/16/18 23:52 Ordered Medication Orders Sodium Chloride (Normal Saline) 1,000 mls @ 100 mls/hr IV ASDIRECTED ZOHAIB Sodium Chloride (Saline Flush) 10 ml FLUSH ASDIRECTED PRN PRN Reason: Keep Vein Open Sodium Chloride (Saline Flush) 2.5 ml FLUSH ASDIRECTED PRN PRN Reason: Keep Vein Open Assessment/Plan Comment:: The patient is a 78-year-old gentleman reports that he had a near syncopal episode on the day of admission. The patient says that he got up too fast in subsequently got dizzy and sat down. The patient also has had hematuria and also has a CT scan scheduled for later today. Initially the patient's hemoglobin was 15.4 g/dL and by day of discharge it had remained normal. A urinalysis obtained did show too numerous to count red blood cells and was grossly bloody. The patient has been hemodynamically stable throughout the short course of hospitalization. The patient has been recommended to continue with his diet as tolerated. He is also to follow-up with urology with regards to his hematuria and his CT scan. The patient is also to have activity as tolerated. He has been discharged from hospitalization with recommendations listed above. This history and physical will serve as a discharge summary as well.
[2018-10-17 08:22] VITALS: BP 111/68
--- NOTE | 2018-10-17 15:48 | CT ---
CT of the abdomen and pelvis with contrast. HISTORY: Other specified disorders of bladder TECHNIQUE: Axial CT images were obtained of the abdomen and pelvis following administration of 100 mL of Isovue-370 in the left antecubital fossa without complication. Coronal and sagittal reconstructions obtained. FINDINGS: The lung bases are clear, no pleural effusion. Tiny 4 x 6 mm nodule within the right lung base. The liver, spleen, adrenal glands, and pancreas appear normal. The gallbladder is normal. No bulky retroperitoneal lymphadenopathy or abdominal ascites. The kidneys enhance and function symmetrically without evidence of obstructive uropathy. Renal cortical cysts are noted. Punctate nonobstructing renal stones bilaterally. The large and small bowel are normal in caliber without evidence of obstruction. No focal pericolonic inflammation or stranding. The appendix is normal. There is a heterogeneous peripherally enhancing mass extending from the right aspect of the pelvis into the region of the prostate and inferior bladder. His contains internal calcifications. No bulky pelvic lymphadenopathy. Postsurgical clips are also noted within the right aspect of the pelvis. No suspicious osseous abnormalities identified. IMPRESSION: 1. Heterogeneous right pelvic mass extending into the region of the prostate and urinary bladder, roughly measuring 9.1 x 5.5 x 3.5 cm. Given the apparent cyst most likely represents recurrent prostate cancer. 2. Otherwise no acute findings noted within the abdomen or pelvis.
== END 2018-10-17 11:05 | disposition home or self-care (01) ==
LOC: MW.ED 23:41 → MW.MS 10-17 02:00
PROVIDERS: ADMIT Internal Medicine; ATTEND Internal Medicine
DX: R55 Syncope and collapse (principal); R31.9 Hematuria, unspecified; I10 Essential (primary) hypertension; E78.00 Pure hypercholesterolemia, unspecified; Z90.79 Acquired absence of other genital organ(s); Z85.46 Personal history of malignant neoplasm of prostate; Z79.82 Long term (current) use of aspirin; Z79.899 Other long term (current) drug therapy
CPT/HCPCS: 36415; 70450; 71045; 80053; 81001; 82550; 84443; 84484; 85014; 85018; 85025; 85610; 96360; 96361; 99285; G0378; J7040; 74177; 74177-26

== ENCOUNTER 2018-10-26 18:06 | Emergency (ER) | payer MEDICARE, BC ==
[2018-10-26] MEDS ORDERED: Sodium Chloride 0.9% 10 ML Syringe FLUSH PRN (18:25)
[2018-10-26] MEDS ORDERED: Sodium Chloride 0.9% 2.5 ML Syringe FLUSH PRN (18:25)
--- NOTE | 2018-10-26 18:25 | EDM.PDOC ---
ED HPI GENERAL MEDICAL PROBLEM - General Chief Complaint: Genitourinary Problem Stated Complaint: BLOOD IN URINE Time Seen by Provider: 10/26/18 18:14 - History of Present Illness INITIAL COMMENTS - FREE TEXT/NARRATIVE: HISTORY AND PHYSICAL: History of present illness: Patient's a 78-year-old white male with a history of prostate cancer is 10 years status post radical prostatectomy who presents now with a recent CT scan demonstrated a 9 x 5 x 4 cm mass described is heterogeneous in his right pelvis extending into the region of the urinary bladder. Patient states today he has had difficulty urinating and urinating only small amounts analysis suprapubic discomfort with obvious urinary retention this small amount of urine has had gross blood in it. He denies fever chills nausea vomiting or other complaints Review of systems: As per history of present illness and below otherwise all systems reviewed and negative. Past medical history: As per history of present illness and as reviewed below otherwise noncontributory. Surgical history: As per history of present illness and as reviewed below otherwise noncontributory. Social history: No reported history of drug or alcohol abuse. Family history: As per history of present illness and as reviewed below otherwise noncontributory. Physical exam: HEENT: Atraumatic, normocephalic, pupils reactive, negative for conjunctival pallor or scleral icterus, mucous membranes moist, throat clear, neck supple, nontender, trachea midline. Lungs: Clear to auscultation, breath sounds equal bilaterally, chest nontender. Heart: S1S2, regular, negative for clicks, rubs, or JVD. Abdomen: Soft, nondistended, nontender. Negative for masses or hepatosplenomegaly. Negative for costovertebral tenderness. Pelvis: Stable nontender. Genitourinary: Deferred. Rectal: Deferred. Extremities: Atraumatic, negative for cords or calf pain. Neurovascular unremarkable. Neuro: Awake, alert, oriented. Cranial nerves II through XII unremarkable. Cerebellum unremarkable. Motor and sensory unremarkable throughout. Exam nonfocal. 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 Penis Pain Score (Numeric/FACES): 9 - Related Data Allergies Allergy/AdvReac Type Severity Reaction Status Date / Time No Known Allergies Allergy Verified 10/26/18 18:18 Home Meds: Home Meds Lisinopril 20 mg PO DAILY 07/21/17 [History] Metoprolol Succinate 25 mg PO DAILY 07/21/17 [History] atorvaSTATin Calcium [Atorvastatin Calcium] 10 mg PO BEDTIME 07/21/17 [History] Past Medical History HEENT History: Reports: Other (See Below) Other HEENT History: wears glasses, has upper denture and lower partial removable denture Cardiovascular History: Reports: High Cholesterol, Hypertension Respiratory History: Reports: None Gastrointestinal History: Reports: None Genitourinary History: Reports: Other (See Below) Other Genitourinary History: hx of prostate cancer Musculoskeletal History: Reports: Arthritis, Gout Other Musculoskeletal History: hx of arthritis in hands Neurological History: Reports: None Psychiatric History: Reports: None Endocrine/Metabolic History: Reports: None Hematologic History: Reports: Anticoagulation Therapy Immunologic History: Reports: None Oncologic (Cancer) History: Reports: Prostate Dermatologic History: Reports: None - Past Surgical History Head Surgeries/Procedures: Reports: None Male Surgical History: Reports: Prostatectomy Other Male Surgeries/Procedures: Radical Retropubic Prostatectomy Neurological Surgical History: Reports: Laminectomy Musculoskeletal Surgical History: Reports: Carpal Tunnel Other Oncologic Surgeries/Procedures: prostatectomy Social & Family History - Caffeine Use Caffeine Use: Reports: Coffee ED ROS GENERAL - Review of Systems Review Of Systems: ROS reveals no pertinent complaints other than HPI. ED EXAM, GENERAL - Physical Exam Exam: See Below (See dictation) Course - Vital Signs Last Recorded V/S: Last Vital Signs Temp 36.4 C 10/26/18 18:13 Pulse 96 10/26/18 18:13 Resp 18 10/26/18 18:13 BP 200/95 H 10/26/18 18:13 Pulse Ox 94 L 10/26/18 18:13 - Orders/Labs/Meds Orders: Active Orders 24 hr Category Date Time Status CBC WITH AUTO DIFF [HEME] Stat Lab 10/26/18 18:30 Received COMPREHENSIVE METABOLIC PN,CMP [CHEM] Stat Lab 10/26/18 18:30 Received INR,PT,PROTHROMBIN TIME [COAG] Stat Lab 10/26/18 18:30 Received UA RFX MICHAEL AND CULT IF INDIC [URIN] Stat Lab 10/26/18 18:22 Received Sodium Chloride 0.9% [Saline Flush] Med 10/26/18 18:25 Active 10 ml FLUSH ASDIRECTED PRN Sodium Chloride 0.9% [Saline Flush] Med 10/26/18 18:25 Active 2.5 ml FLUSH ASDIRECTED PRN Saline Lock Insert [OM.PC] Stat Oth 10/26/18 18:25 Ordered Medication Orders Sodium Chloride (Saline Flush) 10 ml FLUSH ASDIRECTED PRN PRN Reason: Keep Vein Open Sodium Chloride (Saline Flush) 2.5 ml FLUSH ASDIRECTED PRN PRN Reason: Keep Vein Open Meds: Medications Generic Name Dose Route Start Last Admin Trade Name Freq PRN Reason Stop Dose Admin Sodium Chloride 10 ml 10/26/18 18:25 Saline Flush FLUSH ASDIRECTED PRN Keep Vein Open Sodium Chloride 2.5 ml 10/26/18 18:25 Saline Flush FLUSH ASDIRECTED PRN Keep Vein Open Departure - Departure Time of Disposition: 18:37 Disposition: Home, Self-Care 01 Condition: Good Clinical Impression: Urinary retention, Pelvic mass - Discharge Information Referrals: PCP,None [Primary Care Provider] - Forms: ED Department Discharge Additional Instructions: The following information is given to patients seen in the emergency department who are being discharged to home. This information is to outline your options for follow-up care. We provide all patients seen in our emergency department with a follow-up referral. The need for follow-up, as well as the timing and circumstances, are variable depending upon the specifics of your emergency department visit. If you don't have a primary care physician on staff, we will provide you with a referral. We always advise you to contact your personal physician following an emergency department visit to inform them of the circumstance of the visit and for follow-up with them and/or the need for any referrals to a consulting specialist. The emergency department will also refer you to a specialist when appropriate. This referral assures that you have the opportunity for followup care with a specialist. All of these measure are taken in an effort to provide you with optimal care, which includes your followup. Under all circumstances we always encourage you to contact your private physician who remains a resource for coordinating your care. When calling for followup care, please make the office aware that this follow-up is from your recent emergency room visit. If for any reason you are refused follow-up, please contact the [facility] emergency department at and asked to speak to the emergency department charge nurse. Cipro as prescribed keep follow-up appointments with urology and radiology as discussed Franklin catheter leg bag care as directed return as needed as discussed - My Orders Last 24 Hours: My Active Orders 10/26/18 18:25 Sodium Chloride 0.9% [Saline Flush] 10 ml FLUSH ASDIRECTED PRN Sodium Chloride 0.9% [Saline Flush] 2.5 ml FLUSH ASDIRECTED PRN Saline Lock Insert [OM.PC] Stat 10/26/18 18:30 CBC WITH AUTO DIFF [HEME] Stat COMPREHENSIVE METABOLIC PN,CMP [CHEM] Stat INR,PT,PROTHROMBIN TIME [COAG] Stat - Assessment/Plan Last 24 Hours: My Active Orders 10/26/18 18:25 Sodium Chloride 0.9% [Saline Flush] 10 ml FLUSH ASDIRECTED PRN Sodium Chloride 0.9% [Saline Flush] 2.5 ml FLUSH ASDIRECTED PRN Saline Lock Insert [OM.PC] Stat 10/26/18 18:30 CBC WITH AUTO DIFF [HEME] Stat COMPREHENSIVE METABOLIC PN,CMP [CHEM] Stat INR,PT,PROTHROMBIN TIME [COAG] Stat
[2018-10-26 18:58] LABS: CHLORIDE,CL 95 mmol/L (98-107); SODIUM,NA 128 mmol/L (136-148)
[2018-10-26 20:53] VITALS: BP 131/75
--- NOTE | 2018-10-27 00:20 | CONS ---
DATE OF CONSULTATION: 10/26/2018 DATE OF : 1940 PRIMARY CARE PHYSICIAN: None PCP HISTORY OF PRESENT ILLNESS: A 78-year-old. He was seen in the emergency room with urinary retention. 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 We were in the process of getting percutaneous biopsy of this mass when he went into urinary retention. In the emergency room, his hemoglobin is 13.4, his serum creatinine is 1.1. PHYSICAL EXAMINATION: GENERAL: He is alert and oriented. VITAL SIGNS: Blood pressure is high at 200/95 and pulse 96. I was able to place a 14-Yakut coude tip catheter in the bladder. We got relatively clear urine back. I did not see any blood or blood clots. He stated earlier that he has had a small urinary stream and earlier attempt by the ER physician to place a 16-[place]ut [place] catheter did not work. So, he does have what seems to be a bladder neck narrowing. PLAN: He will have percutaneous biopsy hopefully tomorrow, and we will make arrangements for him to go to [facility] soon after that. MILO CREWS /[id number]
== END 2018-10-26 20:05 | disposition home or self-care (01) ==
LOC: MW.ED 18:06
DX: R19.00 Intra-abdominal and pelvic swelling, mass and lump, unspecified site (principal); R33.8 Other retention of urine; Z79.899 Other long term (current) drug therapy; E78.00 Pure hypercholesterolemia, unspecified; I10 Essential (primary) hypertension; Z85.46 Personal history of malignant neoplasm of prostate; Z79.01 Long term (current) use of anticoagulants; Z90.79 Acquired absence of other genital organ(s)
CPT/HCPCS: 36415; 80053; 81001; 85025; 85610; 99284

== ENCOUNTER 2018-10-28 15:55 | Emergency (ER) | payer MEDICARE, BC ==
--- NOTE | 2018-10-28 16:56 | EDM.PDOC ---
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 Beverly presents with no urine output indwelling catheter in place Patient has not had any urine output today, no fever nausea vomiting chills sweats no chest pain shortness breath headache dizziness palpitation no bowel symptoms ] Review of systems: As per history of present illness and below otherwise all systems reviewed and negative. Past medical history: As per history of present illness and as reviewed below otherwise noncontributory. Surgical history: As per history of present illness and as reviewed below otherwise noncontributory. Social history: No reported history of drug or alcohol abuse. Family history: As per history of present illness and as reviewed below otherwise noncontributory. Physical exam: HEENT: Atraumatic, normocephalic, pupils reactive, negative for conjunctival pallor or scleral icterus, mucous membranes moist, throat clear, neck supple, nontender, trachea midline. Lungs: Clear to auscultation, breath sounds equal bilaterally, chest nontender. Heart: S1S2, regular, negative for clicks, rubs, or JVD. Abdomen: Soft, nondistended, nontender. Negative for masses or hepatosplenomegaly. Negative for costovertebral tenderness. Pelvis: Stable nontender. Genitourinary: Deferred. Rectal: Deferred. Extremities: Atraumatic, negative for cords or calf pain. Neurovascular unremarkable. Neuro: Awake, alert, oriented. Cranial nerves II through XII unremarkable. Cerebellum unremarkable. Motor and sensory unremarkable throughout. Exam nonfocal. Diagnostics: [UA ] Therapeutics: catheter was flushed. bladder scan had been performed with 158 mL on the bladder scan, just under 200 mL of output post flush Patient scheduled to follow-up [facility] on Wednesday Return as needed ] Impression: [Catheter management Chronic history of baseline] Definitive disposition and diagnosis as appropriate pending reevaluation and review of above. - Related Data Allergies Allergy/AdvReac Type Severity Reaction Status Date / Time No Known Allergies Allergy Verified 10/28/18 16:13 Home Meds: Home Meds Lisinopril 20 mg PO DAILY 07/21/17 [History] Metoprolol Succinate 25 mg PO DAILY 07/21/17 [History] atorvaSTATin Calcium [Atorvastatin Calcium] 10 mg PO BEDTIME 07/21/17 [History] Non-Formulary Medication [NF Drug] 1 mg PO DAILY 10/28/18 [History] Past Medical History HEENT History: Reports: Other (See Below) Other HEENT History: wears glasses, has upper denture and lower partial removable denture Cardiovascular History: Reports: High Cholesterol, Hypertension Respiratory History: Reports: None Gastrointestinal History: Reports: None Genitourinary History: Reports: Other (See Below) Other Genitourinary History: hx of prostate cancer Musculoskeletal History: Reports: Arthritis, Gout Other Musculoskeletal History: hx of arthritis in hands Neurological History: Reports: None Psychiatric History: Reports: None Endocrine/Metabolic History: Reports: None Hematologic History: Reports: Anticoagulation Therapy Immunologic History: Reports: None Oncologic (Cancer) History: Reports: Prostate Dermatologic History: Reports: None - Infectious Disease History Infectious Disease History: Reports: Chicken Pox, Shingles - Past Surgical History Head Surgeries/Procedures: Reports: None Male Surgical History: Reports: Prostatectomy Other Male Surgeries/Procedures: Radical Retropubic Prostatectomy Neurological Surgical History: Reports: Laminectomy Musculoskeletal Surgical History: Reports: Carpal Tunnel Other Oncologic Surgeries/Procedures: prostatectomy Social & Family History - Family History Family Medical History: Noncontributory - Tobacco Use Smoking Status *Q: Never Smoker - Caffeine Use Caffeine Use: Reports: Coffee - Recreational Drug Use Recreational Drug Use: No ED ROS GENERAL - Review of Systems Review Of Systems: See Below ED EXAM, GENERAL - Physical Exam Exam: See Below Course - Vital Signs Last Recorded V/S: Last Vital Signs Temp 97.4 F 10/28/18 16:15 Pulse 88 10/28/18 16:15 Resp 20 10/28/18 16:15 BP Pulse Ox 97 10/28/18 16:15 - Orders/Labs/Meds Orders: Active Orders 24 hr Category Date Time Status EKG Documentation Completion [RC] STAT Care 10/28/18 15:57 Inactive CBC WITH AUTO DIFF [HEME] Stat Lab 10/28/18 15:57 Ordered COMPREHENSIVE METABOLIC PN,CMP [CHEM] Stat Lab 10/28/18 15:57 Ordered CULTURE URINE [RM] Stat Lab 10/28/18 16:25 Received LIPASE [CHEM] Stat Lab 10/28/18 15:57 Ordered TROPONIN I [CHEM] Stat Lab 10/28/18 15:57 Ordered Labs: Laboratory Tests 10/28/18 Range/Units 16:25 Urine Color BROWN Urine Appearance SLT CLOUDY Urine pH 5.5 (5.0-8.0) Ur Specific Rush 1.015 (1.001-1.035) Urine Protein 100 H (NEGATIVE) mg/dL Urine Glucose (UA) NEGATIVE (NEGATIVE) mg/dL Urine Ketones NEGATIVE (NEGATIVE) mg/dL Urine Occult Blood LARGE H (NEGATIVE) Urine Nitrite NEGATIVE (NEGATIVE) Urine Bilirubin SMALL H (NEGATIVE) Urine Ictotest NEGATIVE Urine Urobilinogen 0.2 (<2.0) EU/dL Ur Leukocyte Esterase TRACE H (NEGATIVE) Urine RBC TOO NUMEROUS TO CT (0-2/HPF) Urine WBC 1-3 (0-5/HPF) Ur Epithelial Cells RARE (NONE-FEW) Urine Bacteria FEW (NEGATIVE) Urine Mucus LIGHT (NONE-MOD) Departure - Departure Time of Disposition: 16:55 Disposition: Home, Self-Care 01 Condition: Fair Clinical Impression: Encounter for medical screening examination Clinical Impression: (Ruled Out): Catheter (urine) change required - Discharge Information Referrals: PCP,None [Primary Care Provider] - Additional Instructions: The following information is given to patients seen in the emergency department who are being discharged to home. This information is to outline your options for follow-up care. We provide all patients seen in our emergency department with a follow-up referral. The need for follow-up, as well as the timing and circumstances, are variable depending upon the specifics of your emergency department visit. If you don't have a primary care physician on staff, we will provide you with a referral. We always advise you to contact your personal physician following an emergency department visit to inform them of the circumstance of the visit and for follow-up with them and/or the need for any referrals to a consulting specialist. The emergency department will also refer you to a specialist when appropriate. This referral assures that you have the opportunity for follow-up care with a specialist. All of these measure are taken in an effort to provide you with optimal care, which includes your follow-up. Under all circumstances we always encourage you to contact your private physician who remains a resource for coordinating your care. When calling for follow-up care, please make the office aware that this follow-up is from your recent emergency room visit. If for any reason you are refused follow-up, please contact the [facility] emergency department at and asked to speak to the emergency department charge nurse. - My Orders Last 24 Hours: My Active Orders 10/28/18 15:57 EKG Documentation Completion [RC] STAT CBC WITH AUTO DIFF [HEME] Stat COMPREHENSIVE METABOLIC PN,CMP [CHEM] Stat LIPASE [CHEM] Stat TROPONIN I [CHEM] Stat 10/28/18 16:25 CULTURE URINE [RM] Stat - Assessment/Plan Last 24 Hours: My Active Orders 10/28/18 15:57 EKG Documentation Completion [RC] STAT CBC WITH AUTO DIFF [HEME] Stat COMPREHENSIVE METABOLIC PN,CMP [CHEM] Stat LIPASE [CHEM] Stat TROPONIN I [CHEM] Stat 10/28/18 16:25 CULTURE URINE [RM] Stat
== END 2018-10-28 17:08 | disposition home or self-care (01) ==
LOC: MW.ED 15:55
DX: Z46.6 Encounter for fitting and adjustment of urinary device (principal); I10 Essential (primary) hypertension; M19.90 Unspecified osteoarthritis, unspecified site; M10.9 Gout, unspecified; Z85.51 Personal history of malignant neoplasm of bladder
CPT/HCPCS: 51798; 81001; 87086; 99283; 99284-25

== ENCOUNTER 2018-11-03 12:13 | Emergency (ER) | payer MEDICARE, BC ==
[2018-11-03 12:39] VITALS: BP 125/69
--- NOTE | 2018-11-03 13:37 | EDM.PDOC ---
ED HPI GENERAL MEDICAL PROBLEM - General Chief Complaint: Genitourinary Problem Stated Complaint: CATH PLUGGED UP Time Seen by Provider: 11/03/18 12:14 Source of Information: Reports: Patient - History of Present Illness INITIAL COMMENTS - FREE TEXT/NARRATIVE: HISTORY AND PHYSICAL: History of present illness: Patient is well-known to us over the last couple of weeks she has been diagnosed with a sarcoma and followed to [facility] he is here for catheter maintenance This is a nursing visit I did not see the patient Diagnostics: [None] Therapeutics: [Catheter was flushed and functioning well her neck or] Impression: [Catheter maintenance Nursing visit] Chronic history of baseline Definitive disposition and diagnosis as appropriate pending reevaluation and review of above. - Related Data Allergies Allergy/AdvReac Type Severity Reaction Status Date / Time No Known Allergies Allergy Verified 10/28/18 16:13 Home Meds: Home Meds Lisinopril 20 mg PO DAILY 07/21/17 [History] Metoprolol Succinate 25 mg PO DAILY 07/21/17 [History] atorvaSTATin Calcium [Atorvastatin Calcium] 10 mg PO BEDTIME 07/21/17 [History] Non-Formulary Medication [NF Drug] 1 mg PO DAILY 10/28/18 [History] Past Medical History HEENT History: Reports: Other (See Below) Other HEENT History: wears glasses, has upper denture and lower partial removable denture Cardiovascular History: Reports: High Cholesterol, Hypertension Respiratory History: Reports: None Gastrointestinal History: Reports: None Genitourinary History: Reports: Other (See Below) Other Genitourinary History: hx of prostate cancer Musculoskeletal History: Reports: Arthritis, Gout Other Musculoskeletal History: hx of arthritis in hands Neurological History: Reports: None Psychiatric History: Reports: None Endocrine/Metabolic History: Reports: None Hematologic History: Reports: Anticoagulation Therapy Immunologic History: Reports: None Oncologic (Cancer) History: Reports: Prostate Dermatologic History: Reports: None - Infectious Disease History Infectious Disease History: Reports: Chicken Pox, Shingles - Past Surgical History Head Surgeries/Procedures: Reports: None Male Surgical History: Reports: Prostatectomy Other Male Surgeries/Procedures: Radical Retropubic Prostatectomy Neurological Surgical History: Reports: Laminectomy Musculoskeletal Surgical History: Reports: Carpal Tunnel Other Oncologic Surgeries/Procedures: prostatectomy Social & Family History - Family History Family Medical History: Noncontributory - Caffeine Use Caffeine Use: Reports: Coffee ED ROS GENERAL - Review of Systems Review Of Systems: See Below ED EXAM, GENERAL - Physical Exam Exam: See Below Course - Vital Signs Last Recorded V/S: Last Vital Signs Temp 98.3 F 11/03/18 12:27 Pulse 92 11/03/18 12:27 Resp 16 11/03/18 12:27 BP 125/69 11/03/18 12:27 Pulse Ox 96 11/03/18 12:27 Departure - Departure Time of Disposition: 13:37 Disposition: Home, Self-Care 01 Condition: Good Clinical Impression: Catheter (urine) change required - Discharge Information Instructions: Indwelling Urinary Catheter Care, Adult, [id number] Referrals: PCP,None [Primary Care Provider] - Thien Mccall MD [Physician] - Forms: ED Department Discharge Additional Instructions: The following information is given to patients seen in the emergency department who are being discharged to home. This information is to outline your options for follow-up care. We provide all patients seen in our emergency department with a follow-up referral. The need for follow-up, as well as the timing and circumstances, are variable depending upon the specifics of your emergency department visit. If you don't have a primary care physician on staff, we will provide you with a referral. We always advise you to contact your personal physician following an emergency department visit to inform them of the circumstance of the visit and for follow-up with them and/or the need for any referrals to a consulting specialist. The emergency department will also refer you to a specialist when appropriate. This referral assures that you have the opportunity for follow-up care with a specialist. All of these measure are taken in an effort to provide you with optimal care, which includes your follow-up. Under all circumstances we always encourage you to contact your private physician who remains a resource for coordinating your care. When calling for follow-up care, please make the office aware that this follow-up is from your recent emergency room visit. If for any reason you are refused follow-up, please contact the [facility] emergency department at and asked to speak to the emergency department charge nurse.
== END 2018-11-03 13:10 | disposition home or self-care (01) ==
LOC: MW.ED 12:13
DX: Z46.6 Encounter for fitting and adjustment of urinary device (principal); I10 Essential (primary) hypertension; E78.00 Pure hypercholesterolemia, unspecified; Z79.899 Other long term (current) drug therapy
CPT/HCPCS: 99281; 99283

== ENCOUNTER 2018-11-07 16:29 | Emergency (ER) | payer MEDICARE, BC ==
[2018-11-07] MEDS ORDERED: Sodium Chloride 0.9% 10 ML Syringe FLUSH PRN (17:15)
[2018-11-07] MEDS ORDERED: Sodium Chloride 0.9% 2.5 ML Syringe FLUSH PRN (17:15)
--- NOTE | 2018-11-07 17:21 | EDM.PDOC ---
ED HPI GENERAL MEDICAL PROBLEM - General Chief Complaint: Gastrointestinal Problem Stated Complaint: CONSTIPATION Time Seen by Provider: 11/07/18 16:35 - History of Present Illness INITIAL COMMENTS - FREE TEXT/NARRATIVE: HISTORY AND PHYSICAL: History of present illness: The patient is a 78-year-old male who was first seen here in October for having a near syncopal event and history of hematuria. The patient has a history of prostatectomy due to prostate cancer and on that evaluation he was noted to have hematuria and had symptoms of presyncope and was admitted to the hospital. On that evaluation he had a CAT scan which documented a right pelvic mass which was extending to the prostate and the bladder and there was concern about a recurrence of his prostate cancer. The patient presented to the ED again on October 26 for urinary retention and had a Franklin catheter placed by Dr. 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. The patient came in again on October 28 for issues with the Franklin catheter were addressed here in the ED. He was subsequently seen a week ago on October [address] [facility] and underwent CT scans as well as an MRI and on November 01, last Wednesday, he had a biopsy of this mass. 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 She is not sure what the next steps in the plan are. She said that Dr. Mccall was forwarded all the results and that they would be discussing the care plan with him. The patient was continuing to having issues with the Franklin catheter becoming clogged and was able to see a urologist at [facility] in [place] on November 04 and underwent suprapubic catheter placement. Dr. Mccall was out of town and was not able to assist. The and the patient both say that since the suprapubic catheter was placed he is having good urinary output and drainage and he is having no issues with that. The patient presents today to the ED with concerns of no bowel movement for the last 5 days. He's had no abdominal distention and no abdominal pain but he does feel the urge to have a bowel movement and only a small amount came out last Wednesday 5 days ago. He's had no nausea and vomiting and he says he has not been eating his usual amount. He has been pushing his hydration. He has no fevers or chills and no new complaints of discomfort. He is concerned about no bowel movement. Review of systems: As per history of present illness and below otherwise all systems reviewed and negative. Past medical history: As per history of present illness and as reviewed below otherwise noncontributory. Surgical history: As per history of present illness and as reviewed below otherwise noncontributory. Social history: No reported history of drug or alcohol abuse. Family history: As per history of present illness and as reviewed below otherwise noncontributory. Physical exam: General: Well-developed well-nourished man who is nontoxic and vital signs are noted by me. He moves easily in the ED without any distress HEENT: Atraumatic, normocephalic, pupils reactive, negative for conjunctival pallor or scleral icterus, mucous membranes moist, throat clear, neck supple, nontender, trachea midline. Lungs: Clear to auscultation, breath sounds equal bilaterally, chest nontender. Heart: S1S2, regular, negative for clicks, rubs, or JVD. Abdomen: Soft, nondistended, nontender. Bowel sounds are normoactive and there is only slight tympany on percussion of the upper abdomen. There is no tenderness rebound or guarding on deep palpation throughout the abdomen Negative for masses or hepatosplenomegaly. The suprapubic site on the lower abdomen is clean and dry and dressing is intact. There is no tenderness in the surround. Pelvis: Stable nontender. Genitourinary: Deferred. Leg bag is seen on the right leg with good urine output Rectal: Tone is normal and there are no overt masses or lesions appreciated visually and on digital exam. There is only scant stool high in the vault. Extremities: Atraumatic, full range of motion without defects or deficits. Neurovascular unremarkable. Neuro: Awake, alert, oriented. Cranial nerves II through XII unremarkable. Cerebellum unremarkable. Motor and sensory unremarkable throughout. Exam nonfocal. Diagnostics: CBC CMP abdominal x-rays Therapeutics: I discussed with patient and at bedside that he has no clinical findings for a bowel obstruction and he is not distended nor having any vomiting or abdominal pain. His x-rays also show some stool in the colon but there is not a copious amount nor is there sign of obstruction. I advised [id number] Colace and asked about a dose of MiraLAX which I said he could take one dose tonight if they felt the need but that the Colace mages keep him moving more gently. I advised them on Reasons to return to the ED and asked them to connect with Dr. Mccall to see what the plan is going forward regarding this mass Impression: Constipation; history of pelvic mass with recent biopsy stable Definitive disposition and diagnosis as appropriate pending reevaluation and review of above. Middle Abdomen Pain Score (Numeric/FACES): 6 - Related Data Allergies Allergy/AdvReac Type Severity Reaction Status Date / Time No Known Allergies Allergy Verified 11/07/18 16:47 Home Meds: Home Meds Lisinopril 20 mg PO DAILY 07/21/17 [History] Metoprolol Succinate 25 mg PO DAILY 07/21/17 [History] atorvaSTATin Calcium [Atorvastatin Calcium] 10 mg PO BEDTIME 07/21/17 [History] Non-Formulary Medication [NF Drug] 1 mg PO DAILY 10/28/18 [History] oxyCODONE HCl/Acetaminophen [Percocet 5-325 mg Tablet] 1 tab PO QID PRN [History] Past Medical History HEENT History: Reports: Other (See Below) Other HEENT History: wears glasses, has upper denture and lower partial removable denture Cardiovascular History: Reports: High Cholesterol, Hypertension Respiratory History: Reports: None Gastrointestinal History: Reports: None Genitourinary History: Reports: Other (See Below) Other Genitourinary History: hx of prostate cancer Musculoskeletal History: Reports: Arthritis, Gout Other Musculoskeletal History: hx of arthritis in hands Neurological History: Reports: None Psychiatric History: Reports: None Endocrine/Metabolic History: Reports: None Hematologic History: Reports: Anticoagulation Therapy Immunologic History: Reports: None Oncologic (Cancer) History: Reports: Prostate Dermatologic History: Reports: None - Infectious Disease History Infectious Disease History: Reports: Chicken Pox, Shingles - Past Surgical History Head Surgeries/Procedures: Reports: None HEENT Surgical History: Reports: None Male Surgical History: Reports: Prostatectomy Other Male Surgeries/Procedures: Radical Retropubic Prostatectomy Neurological Surgical History: Reports: Laminectomy Musculoskeletal Surgical History: Reports: Carpal Tunnel Other Oncologic Surgeries/Procedures: prostatectomy Social & Family History - Family History Family Medical History: Noncontributory - Tobacco Use Smoking Status *Q: Never Smoker Second Hand Smoke Exposure: No - Caffeine Use Caffeine Use: Reports: Coffee - Recreational Drug Use Recreational Drug Use: No ED ROS GENERAL - Review of Systems Review Of Systems: ROS reveals no pertinent complaints other than HPI. ED EXAM, GENERAL - Physical Exam Exam: See Below (see Dictation) Course - Vital Signs Last Recorded V/S: Last Vital Signs Temp 36.2 C 11/07/18 16:48 Pulse 85 11/07/18 16:48 Resp 17 11/07/18 16:48 BP 120/62 11/07/18 16:48 Pulse Ox 96 11/07/18 16:48 - Orders/Labs/Meds Orders: Active Orders 24 hr Category Date Time Status Sodium Chloride 0.9% [Saline Flush] Med 11/07/18 17:15 Active 10 ml FLUSH ASDIRECTED PRN Sodium Chloride 0.9% [Saline Flush] Med 11/07/18 17:15 Active 2.5 ml FLUSH ASDIRECTED PRN Saline Lock Insert [OM.PC] Stat Oth 11/07/18 17:15 Ordered Medication Orders Sodium Chloride (Saline Flush) 10 ml FLUSH ASDIRECTED PRN PRN Reason: Keep Vein Open Last Admin: 11/07/18 17:34 Dose: 10 ml Sodium Chloride (Saline Flush) 2.5 ml FLUSH ASDIRECTED PRN PRN Reason: Keep Vein Open Last Admin: 11/07/18 17:34 Dose: 2.5 ml Labs: Laboratory Tests 11/07/18 11/07/18 Range/Units 17:23 17:23 WBC 8.01 (4.0-11.0) K/uL RBC 3.67 L (4.50-5.90) M/uL Hgb 11.6 L (13.0-17.0) g/dL Hct 34.1 L (38.0-50.0) % MCV 92.9 (80.0-98.0) fL MCH 31.6 (27.0-32.0) pg MCHC 34.0 (31.0-37.0) g/dL RDW Std Deviation 43.0 (28.0-62.0) fl RDW Coeff of Jeanie 13 (11.0-15.0) % Plt Count 274 (150-400) K/uL MPV 8.60 (7.40-12.00) fL Neut % (Auto) 75.2 (48.0-80.0) % Lymph % (Auto) 12.0 L (16.0-40.0) % Hyde % (Auto) 8.7 (0.0-15.0) % Eos % (Auto) 3.9 (0.0-7.0) % Baso % (Auto) 0.2 (0.0-1.5) % Neut # (Auto) 6.0 H (1.4-5.7) K/uL Lymph # (Auto) 1.0 (0.6-2.4) K/uL Hyde # (Auto) 0.7 (0.0-0.8) K/uL Eos # (Auto) 0.3 (0.0-0.7) K/uL Baso # (Auto) 0.0 (0.0-0.1) K/uL Nucleated RBC % 0.0 /100WBC Nucleated RBCs # 0 K/uL Sodium 133 L (136-148) mmol/L Potassium 4.3 (3.5-5.1) mmol/L Chloride 97 L (98-107) mmol/L Carbon Dioxide 26.9 (21.0-32.0) mmol/L BUN 13 (7.0-18.0) mg/dL Creatinine 0.9 (0.8-1.3) mg/dL Est Cr Clr Drug Dosing 63.24 mL/min Estimated GFR (MDRD) > 60.0 ml/min Glucose 107 H (74-106) mg/dL Calcium 8.8 (8.5-10.1) mg/dL Total Bilirubin 0.3 (0.2-1.0) mg/dL AST 27 (15-37) IU/L ALT 37 (14-63) IU/L Alkaline Phosphatase 91 (46-116) U/L Total Protein 6.8 (6.4-8.2) g/dL Albumin 3.1 L (3.4-5.0) g/dL Globulin 3.7 (2.6-4.0) g/dL Albumin/Globulin Ratio 0.8 L (0.9-1.6) Meds: Medications Generic Name Dose Route Start Last Admin Trade Name Freq PRN Reason Stop Dose Admin Sodium Chloride 10 ml 11/07/18 17:15 11/07/18 17:34 Saline Flush FLUSH 10 ml ASDIRECTED PRN Administration Keep Vein Open Sodium Chloride 2.5 ml 11/07/18 17:15 11/07/18 17:34 Saline Flush FLUSH 2.5 ml ASDIRECTED PRN Administration Keep Vein Open Departure - Departure Time of Disposition: 18:15 Disposition: Home, Self-Care 01 Condition: Good Clinical Impression: Constipation Qualifiers: Constipation type: unspecified constipation type Qualified Code(s): K59.00 - Constipation, unspecified - Discharge Information Forms: ED Department Discharge Additional Instructions: The following information is given to patients seen in the emergency department who are being discharged to home. This information is to outline your options for follow-up care. We provide all patients seen in our emergency department with a follow-up referral. The need for follow-up, as well as the timing and circumstances, are variable depending upon the specifics of your emergency department visit. If you don't have a primary care physician on staff, we will provide you with a referral. We always advise you to contact your personal physician following an emergency department visit to inform them of the circumstance of the visit and for follow-up with them and/or the need for any referrals to a consulting specialist. The emergency department will also refer you to a specialist when appropriate. This referral assures that you have the opportunity for followup care with a specialist. All of these measure are taken in an effort to provide you with optimal care, which includes your followup. Under all circumstances we always encourage you to contact your private physician who remains a resource for coordinating your care. When calling for followup care, please make the office aware that this follow-up is from your recent emergency room visit. If for any reason you are refused follow-up, please contact the [facility] emergency department at and ask to speak to the emergency department charge nurse. [facility] Primary care- Internal Medicine and Family [address] [id number] [facility] [address] [place] [id number] Please continue to push hydration and eat fiber rich foods vegetables and fruits. You may use [id number] Colace 100 mg twice a day to help keep the stool moving gently and you may also take one dose of avhj-kle-vqylujt MiraLAX as you choose. Do not take any other ldzd-ohb-povfrqy laxatives as this may cause discomfort and further complications in light of your pelvic mass. Return to ER as needed and as discussed and connect with Dr. Mccall regarding care plan going forward - My Orders Last 24 Hours: My Active Orders 11/07/18 17:15 Sodium Chloride 0.9% [Saline Flush] 10 ml FLUSH ASDIRECTED PRN Sodium Chloride 0.9% [Saline Flush] 2.5 ml FLUSH ASDIRECTED PRN Saline Lock Insert [OM.PC] Stat - Assessment/Plan Last 24 Hours: My Active Orders 11/07/18 17:15 Sodium Chloride 0.9% [Saline Flush] 10 ml FLUSH ASDIRECTED PRN Sodium Chloride 0.9% [Saline Flush] 2.5 ml FLUSH ASDIRECTED PRN Saline Lock Insert [OM.PC] Stat
[2018-11-07 17:59] LABS: CHLORIDE,CL 97 mmol/L (98-107); SODIUM,NA 133 mmol/L (136-148)
--- NOTE | 2018-11-07 18:04 | CR ---
INDICATION: no BM 5 days Indication: Constipation. Technique: Abdomen, four views. Comparison: CT of the abdomen and pelvis 10/13/2018. Findings: Lung bases are clear. There is no soft tissue mass by plain film. A pelvic mass was described on the recent CT from 10/13/2018. Calcifications along the superior/inferior pubic rami are subtle on plain film, and better demonstrated on the CT. There is a catheter within the pelvis, and surgical clips, compatible with a pelvic lymph node dissection. Osteophytic spurring throughout the endplates of the lower thoracic and lumbar spine. Impression: 1. Nonobstructive bowel gas pattern. 2. No pneumoperitoneum by plain film Dictated by Agusto Sanchez MD @ 11/07/2018 6:03:43 PM Dictated by: Agusto Sanchez MD @ 11/07/2018 18:03:56 (Electronically Signed)
[2018-11-07 18:36] VITALS: BP 117/60
== END 2018-11-07 18:36 | disposition home or self-care (01) ==
LOC: MW.ED 16:29
DX: K59.00 Constipation, unspecified (principal); I10 Essential (primary) hypertension; M19.90 Unspecified osteoarthritis, unspecified site; M10.9 Gout, unspecified; Z79.899 Other long term (current) drug therapy; Z85.46 Personal history of malignant neoplasm of prostate
CPT/HCPCS: 36415; 74019; 74019-26; 80053; 85025; 99283-25

== ENCOUNTER 2018-11-20 10:20 | Observation (INO) | payer MEDICARE, BC ==
[2018-11-20] MEDS ORDERED: Sodium Chloride 0.9% 1,000 ML IV ONE (10:41)
[2018-11-20] MEDS ORDERED: Sodium Chloride 0.9% 2.5 ML Syringe FLUSH PRN (10:41)
[2018-11-20] MEDS ORDERED: Sodium Chloride 0.9% 10 ML Syringe FLUSH PRN (10:41)
--- NOTE | 2018-11-20 10:47 | EDM.PDOC ---
ED HPI GENERAL MEDICAL PROBLEM - General Chief Complaint: General Stated Complaint: BP CHECK Time Seen by Provider: 11/20/18 10:41 Source of Information: Reports: Patient History Limitations: Reports: No Limitations - History of Present Illness INITIAL COMMENTS - FREE TEXT/NARRATIVE: HISTORY AND PHYSICAL: History of present illness: Patient is a 78-year-old male presents to the ED with concern of low blood pressure. 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 He was being seen at [facility] this past and they noted that his blood pressure was in the 70s/40s. His primary care provider here, Dr. Marielle rubio, cut his lisinopril in half from 20 mg to 10 mg daily and he is taking 25 mg of metoprolol daily as well. They have been checking his blood pressure at home and it has been in the 80s over high 40s. He states that he doesn't have any particular symptoms when his blood pressure is this low and states that it is usually lower when he is relaxing but is in the 100s/50s after he has been up doing stuff. He states that he does feel tired but this is not a new symptom and he denies any dizziness, lightheadedness, syncope. He states he has recently lost 15 pounds because he does not have much of an appetite and he is not drinking as much fluids as he normally does. He recently had a suprapubic catheter placed and states his urine is always dark and bloody. He follows with Dr. Mccall. He has not yet started chemotherapy. He denies chest pain, shortness of breath, nausea , vomiting, diarrhea, abdominal pain. Blood pressure is 107/64 and HR 95 on arrival. Review of systems: As per history of present illness and below otherwise all systems reviewed and negative. Past medical history: As per history of present illness and as reviewed below otherwise noncontributory. Surgical history: As per history of present illness and as reviewed below otherwise noncontributory. Social history: No reported history of drug or alcohol abuse. Family history: As per history of present illness and as reviewed below otherwise noncontributory. Physical exam: General: Patient sitting comfortably in no acute distress and nontoxic appearing HEENT: Atraumatic, normocephalic, pupils reactive, negative for conjunctival pallor or scleral icterus, mucous membranes moist, throat clear, neck supple, nontender, trachea midline. No meningeal signs. Lungs: Clear to auscultation, breath sounds equal bilaterally, chest nontender. Heart: S1S2, regular, negative for clicks, rubs, or overt murmur. Abdomen: Soft, nondistended, nontender. Suprapubic catheter in place. Negative for masses or hepatosplenomegaly. Negative for costovertebral tenderness. No rigidity, rebound, guarding. Pelvis: Stable nontender. Genitourinary: Deferred. Rectal: Deferred. Extremities: Atraumatic, negative for cords or calf pain. Neurovascular unremarkable. Neuro: Awake, alert, oriented. Cranial nerves II through XII unremarkable. Cerebellum unremarkable. Motor and sensory unremarkable throughout. Exam nonfocal. Notes: Diagnostics: CBC, CMP, EKG, orthostatic vitals Therapeutics: 1L Normal Saline IV Bolus 1L Maintenance Prescriptions: Impression: Hyponatremia, Hypotension Plan: Discussed with Dr. Mota, patient will be admitted to observation Definitive disposition and diagnosis as appropriate pending reevaluation and review of above. - Related Data Allergies Allergy/AdvReac Type Severity Reaction Status Date / Time No Known Allergies Allergy Verified 11/07/18 16:47 Home Meds: Home Meds Lisinopril 10 mg PO DAILY 07/21/17 [History] Metoprolol Succinate 25 mg PO DAILY 07/21/17 [History] atorvaSTATin Calcium [Atorvastatin Calcium] 10 mg PO BEDTIME 07/21/17 [History] Non-Formulary Medication [NF Drug] 1 mg PO DAILY 10/28/18 [History] oxyCODONE HCl/Acetaminophen [Percocet 5-325 mg Tablet] 1 tab PO QID PRN [History] Past Medical History HEENT History: Reports: Other (See Below) Other HEENT History: wears glasses, has upper denture and lower partial removable denture Cardiovascular History: Reports: High Cholesterol, Hypertension Respiratory History: Reports: None Gastrointestinal History: Reports: None Genitourinary History: Reports: Other (See Below) Other Genitourinary History: hx of prostate cancer Musculoskeletal History: Reports: Arthritis, Gout Other Musculoskeletal History: hx of arthritis in hands Neurological History: Reports: None Psychiatric History: Reports: None Endocrine/Metabolic History: Reports: None Hematologic History: Reports: Anticoagulation Therapy Immunologic History: Reports: None Oncologic (Cancer) History: Reports: Prostate, Other (See Below) Other Oncologic History: 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 Has a suprapubic catheter Neurological Surgical History: Reports: Laminectomy Musculoskeletal Surgical History: Reports: Carpal Tunnel Other Oncologic Surgeries/Procedures: prostatectomy Social & Family History - Family History Family Medical History: Noncontributory - Tobacco Use Smoking Status *Q: Never Smoker - Caffeine Use Caffeine Use: Reports: None - Recreational Drug Use Recreational Drug Use: No ED ROS GENERAL - Review of Systems Review Of Systems: ROS reveals no pertinent complaints other than HPI. ED EXAM, GENERAL - Physical Exam Exam: See Below (see dictation) Course - Vital Signs Last Recorded V/S: Last Vital Signs Temp 97.0 F 11/20/18 10:28 Pulse 95 11/20/18 10:28 Resp 18 11/20/18 10:28 BP 107/64 11/20/18 10:28 Pulse Ox 96 11/20/18 10:28 Orthostatic Blood Pressure [ 104/60 Standing] Orthostatic Blood Pressure [ 98/57 Sitting] Orthostatic Blood Pressure [ 92/46 Supine] - Orders/Labs/Meds Orders: Active Orders 24 hr Category Date Time Status EKG Documentation Completion [RC] STAT Care 11/20/18 10:41 Active Orthostatic Vital Signs [RC] ASDIRECTED Care 11/20/18 10:47 Active CULTURE BLOOD [BC] Stat Lab 11/20/18 11:40 Ordered CULTURE BLOOD [BC] Stat Lab 11/20/18 11:40 Ordered CULTURE URINE [RM] Stat Lab 11/20/18 11:05 Received LACTATE WITH REFLEX [BG] Stat Lab 11/20/18 11:40 Ordered Sodium Chloride 0.9% [Normal Saline] 1,000 ml Med 11/20/18 11:45 Active IV ASDIRECTED Sodium Chloride 0.9% [Saline Flush] Med 11/20/18 10:41 Active 10 ml FLUSH ASDIRECTED PRN Sodium Chloride 0.9% [Saline Flush] Med 11/20/18 10:41 Active 2.5 ml FLUSH ASDIRECTED PRN Blood Culture x2 Reflex Set [OM.PC] Stat Ot 11/20/18 11:40 Ordered Saline Lock Insert [OM.PC] Stat Ot 11/20/18 10:41 Ordered Medication Orders Sodium Chloride (Normal Saline) 1,000 mls @ 125 mls/hr IV ASDIRECTED ZOHAIB Last Admin: 11/20/18 11:45 Dose: 125 mls/hr Sodium Chloride (Saline Flush) 10 ml FLUSH ASDIRECTED PRN PRN Reason: Keep Vein Open Sodium Chloride (Saline Flush) 2.5 ml FLUSH ASDIRECTED PRN PRN Reason: Keep Vein Open Labs: Laboratory Tests 11/20/18 11/20/18 11/20/18 Range/Units 10:51 10:51 11:05 WBC 7.14 (4.0-11.0) K/uL RBC 3.39 L (4.50-5.90) M/uL Hgb 10.6 L (13.0-17.0) g/dL Hct 31.2 L (38.0-50.0) % MCV 92.0 (80.0-98.0) fL MCH 31.3 (27.0-32.0) pg MCHC 34.0 (31.0-37.0) g/dL RDW Std Deviation 43.1 (28.0-62.0) fl RDW Coeff of Jeanie 13 (11.0-15.0) % Plt Count 345 (150-400) K/uL MPV 8.40 (7.40-12.00) fL Neut % (Auto) 75.0 (48.0-80.0) % Lymph % (Auto) 11.3 L (16.0-40.0) % [place] % (Auto) 10.5 (0.0-15.0) % Eos % (Auto) 2.9 (0.0-7.0) % Baso % (Auto) 0.3 (0.0-1.5) % Neut # (Auto) 5.4 (1.4-5.7) K/uL Lymph # (Auto) 0.8 (0.6-2.4) K/uL [place] # (Auto) 0.8 (0.0-0.8) K/uL Eos # (Auto) 0.2 (0.0-0.7) K/uL Baso # (Auto) 0.0 (0.0-0.1) K/uL Nucleated RBC % 0.0 /100WBC Nucleated RBCs # 0 K/uL Sodium 127 L (136-148) mmol/L Potassium 4.6 (3.5-5.1) mmol/L Chloride 95 L (98-107) mmol/L Carbon Dioxide 24.4 (21.0-32.0) mmol/L BUN 25 H (7.0-18.0) mg/dL Creatinine 1.1 (0.8-1.3) mg/dL Est Cr Clr Drug Dosing TNP Estimated GFR (MDRD) > 60.0 ml/min Glucose 112 H (74-106) mg/dL Calcium 8.7 (8.5-10.1) mg/dL Total Bilirubin 0.3 (0.2-1.0) mg/dL AST 14 L (15-37) IU/L ALT 21 (14-63) IU/L Alkaline Phosphatase 117 H (46-116) U/L Total Protein 6.7 (6.4-8.2) g/dL Albumin 3.3 L (3.4-5.0) g/dL Globulin 3.4 (2.6-4.0) g/dL Albumin/Globulin Ratio 1.0 (0.9-1.6) Urine Color RED Urine Appearance CLOUDY Urine pH 7.5 (5.0-8.0) Ur Specific [place] 1.015 (1.001-1.035) Urine Protein >=300 H (NEGATIVE) mg/dL Urine Glucose (UA) NEGATIVE (NEGATIVE) mg/dL Urine Ketones 15 H (NEGATIVE) mg/dL Urine Occult Blood LARGE H (NEGATIVE) Urine Nitrite POSITIVE H (NEGATIVE) Urine Bilirubin LARGE H (NEGATIVE) Urine Ictotest NEGATIVE Urine Urobilinogen 4.0 H (<2.0) EU/dL Ur Leukocyte Esterase LARGE H (NEGATIVE) Urine RBC TOO NUMEROUS TO CT (0-2/HPF) Urine WBC 30-40 (0-5/HPF) Ur Epithelial Cells FEW (NONE-FEW) Urine Bacteria 2+ H (NEGATIVE) Meds: Medications Generic Name Dose Route Start Last Admin Trade Name Freq PRN Reason Stop Dose Admin Sodium Chloride 1,000 mls @ 125 mls/hr 11/20/18 11:45 11/20/18 11:45 Normal Saline IV 125 mls/hr ASDIRECTED ZOHAIB Administration Sodium Chloride 10 ml 11/20/18 10:41 Saline Flush FLUSH ASDIRECTED PRN Keep Vein Open Sodium Chloride 2.5 ml 11/20/18 10:41 Saline Flush FLUSH ASDIRECTED PRN Keep Vein Open Discontinued Medications Generic Name Dose Route Start Last Admin Trade Name Felicia PRN Reason Stop Dose Admin Sodium Chloride 1,000 mls @ 999 mls/hr 11/20/18 10:41 11/20/18 10:54 Normal Saline IV 11/20/18 11:41 999 mls/hr STAT ONE Administration Departure - Departure Time of Disposition: 11:56 Disposition: Refer to Observation Condition: Good Clinical Impression: Hyponatremia, Hypotension - Discharge Information Referrals: Soy Palomares MD [Primary Care Provider] - Forms: ED Department Discharge - My Orders Last 24 Hours: My Active Orders 11/20/18 10:41 EKG Documentation Completion [RC] STAT Sodium Chloride 0.9% [Saline Flush] 10 ml FLUSH ASDIRECTED PRN Sodium Chloride 0.9% [Saline Flush] 2.5 ml FLUSH ASDIRECTED PRN Saline Lock Insert [OM.PC] Stat 11/20/18 10:47 Orthostatic Vital Signs [RC] ASDIRECTED 11/20/18 11:05 CULTURE URINE [RM] Stat 11/20/18 11:40 CULTURE BLOOD [BC] Stat CULTURE BLOOD [BC] Stat LACTATE WITH REFLEX [BG] Stat Blood Culture x2 Reflex Set [OM.PC] Stat 11/20/18 11:45 Sodium Chloride 0.9% [Normal Saline] 1,000 ml IV ASDIRECTED - Assessment/Plan Last 24 Hours: My Active Orders 11/20/18 10:41 EKG Documentation Completion [RC] STAT Sodium Chloride 0.9% [Saline Flush] 10 ml FLUSH ASDIRECTED PRN Sodium Chloride 0.9% [Saline Flush] 2.5 ml FLUSH ASDIRECTED PRN Saline Lock Insert [OM.PC] Stat 11/20/18 10:47 Orthostatic Vital Signs [RC] ASDIRECTED 11/20/18 11:05 CULTURE URINE [RM] Stat 11/20/18 11:40 CULTURE BLOOD [BC] Stat CULTURE BLOOD [BC] Stat LACTATE WITH REFLEX [BG] Stat Blood Culture x2 Reflex Set [OM.PC] Stat 11/20/18 11:45 Sodium Chloride 0.9% [Normal Saline] 1,000 ml IV ASDIRECTED
[2018-11-20 11:18] LABS: CHLORIDE,CL 95 mmol/L (98-107); SODIUM,NA 127 mmol/L (136-148)
[2018-11-20] MEDS ORDERED: Sodium Chloride 0.9% 1,000 ML IV SCH (11:45)
[2018-11-20] MEDS: Acetaminophen/oxyCODONE 325-5 MG Tab PO PRN ×2 (13:57→20:24)
[2018-11-20] MEDS: Sodium Chloride 0.9% 1,000 ML IV SCH ×2 (16:09→20:27)
[2018-11-20] MEDS ORDERED: cefTRIAXone 1 GM in Premix Bag 1 BAG IV ONE (17:56)
--- NOTE | 2018-11-20 20:05 | PCM.HP ---
H&P History of Present Illness - General Date of Service: 11/20/18 Admit Problem/Dx: Admission Diagnosis/Problem Admission Diagnosis/Problem Hyponatremia - History of Present Illness Initial Comments - Free Text/Narative: 78 yo male with past medical history of prostate cancer ten years go who now has a tumor in the pelvis that is invading the bladder and rectum. He has been seen at [facility] and declined their offer of a radical surgery that would remove his leg, bladder and rectum. He may be interested in chemotherapy instead. He had a recent suprapubic catheter placed in [place]. He was noted to have low blood pressure of [address] Paloma[address] clinic who instructed him to cut his BP pills in half. Today his blood pressure was low again and he called the ER and they instructed him to come in. He denies any symptoms of lightheadedness. fevers, or abdominal pain. His pelvic pain is controlled with Percocet but causes constipation. has noted some drainage around the suprapubic catheter site. - Related Data Allergies/Adverse Reactions: Allergies Allergy/AdvReac Type Severity Reaction Status Date / Time No Known Allergies Allergy Verified 11/20/18 12:42 Home Medications: Home Meds atorvaSTATin Calcium [Atorvastatin Calcium] 10 mg PO BEDTIME 07/21/17 [History] oxyCODONE HCl/Acetaminophen [Percocet 5-325 mg Tablet] 1 tab PO QID PRN [History] Tolterodine Tartrate [Tolterodine Tartrate ER] 4 mg PO DAILY 11/20/18 [History] cephALEXin [Keflex] 500 mg PO Q8H #21 cap 11/21/18 [Rx] Past Medical History HEENT History: Reports: Other (See Below) Other HEENT History: wears glasses, has upper denture and lower partial removable denture Cardiovascular History: Reports: High Cholesterol, Hypertension Respiratory History: Reports: None Gastrointestinal History: Reports: None Genitourinary History: Reports: Other (See Below) Other Genitourinary History: hx of prostate cancer, suprapubic catheter Musculoskeletal History: Reports: Arthritis, Gout Other Musculoskeletal History: hx of arthritis in hands Neurological History: Reports: None Psychiatric History: Reports: None Endocrine/Metabolic History: Reports: None Hematologic History: Reports: Blood Transfusion(s), Other (See Below) Other Hematologic History: blood transusion when he had his prostate surgery Immunologic History: Reports: None Oncologic (Cancer) History: Reports: Prostate, Other (See Below) Other Oncologic History: Has 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 Has a suprapubic catheter Endocrine Surgical History: Reports: None Neurological Surgical History: Reports: Laminectomy Musculoskeletal Surgical History: Reports: Carpal Tunnel Other Oncologic Surgeries/Procedures: prostatectomy Dermatological Surgical History: Reports: Other (See Below) Social & Family History - Family History Family Medical History: Noncontributory Neurological: Reports: Parkinson's Endocrine/Metabolic: Reports: Diabetes, type II - Tobacco Use Smoking Status *Q: Never Smoker Second Hand Smoke Exposure: No - Caffeine Use Caffeine Use: Reports: Coffee Caffeine Use Comment: About 3 cup a day - Alcohol Use Days Per Week of Alcohol Use: 4 Number of Drinks Per Day: 2 Total Drinks Per Week: 8 - Recreational Drug Use Recreational Drug Use: No H&P Review of Systems - Review of Systems: Review Of Systems: ROS reveals no pertinent complaints other than HPI. Exam - Exam Exam: See Below - Vital Signs Vital Signs: Last Vital Signs Temp 36.6 C 11/20/18 16:00 Pulse 74 11/20/18 16:00 Resp 18 11/20/18 16:00 BP 109/59 L 11/20/18 16:00 Pulse Ox 95 11/20/18 16:00 Orthostatic Blood Pressure [ 104/60 Standing] Orthostatic Blood Pressure [ 98/57 Sitting] Orthostatic Blood Pressure [ 92/46 Supine] Weight: 69.763 kg - Exam General: Alert, Oriented HEENT: Mucosa Moist & [place] Lungs: Clear to Auscultation, Normal Respiratory Effort Cardiovascular: Regular Rate, Regular Rhythm GI/Abdominal Exam: Soft, Non-Tender, Other (mild erythema around suprapubic catheter) Extremities: Non-Tender, No Pedal Edema Skin: Warm, Dry, Intact - Patient Data Lab Results Last 24 hrs: Laboratory Results - last 24 hr 11/20/18 11/20/18 11/20/18 Range/Units 10:51 10:51 11:05 WBC 7.14 (4.0-11.0) K/uL RBC 3.39 L (4.50-5.90) M/uL Hgb 10.6 L (13.0-17.0) g/dL Hct 31.2 L (38.0-50.0) % MCV 92.0 (80.0-98.0) fL MCH 31.3 (27.0-32.0) pg MCHC 34.0 (31.0-37.0) g/dL RDW Std Deviation 43.1 (28.0-62.0) fl RDW Coeff of Jeanie 13 (11.0-15.0) % Plt Count 345 (150-400) K/uL MPV 8.40 (7.40-12.00) fL Neut % (Auto) 75.0 (48.0-80.0) % Lymph % (Auto) 11.3 L (16.0-40.0) % [place] % (Auto) 10.5 (0.0-15.0) % Eos % (Auto) 2.9 (0.0-7.0) % Baso % (Auto) 0.3 (0.0-1.5) % Neut # (Auto) 5.4 (1.4-5.7) K/uL Lymph # (Auto) 0.8 (0.6-2.4) K/uL [place] # (Auto) 0.8 (0.0-0.8) K/uL Eos # (Auto) 0.2 (0.0-0.7) K/uL Baso # (Auto) 0.0 (0.0-0.1) K/uL Nucleated RBC % 0.0 /100WBC Nucleated RBCs # 0 K/uL Lactate (0.20-2.00) mmol/L Sodium 127 L (136-148) mmol/L Potassium 4.6 (3.5-5.1) mmol/L Chloride 95 L (98-107) mmol/L Carbon Dioxide 24.4 (21.0-32.0) mmol/L BUN 25 H (7.0-18.0) mg/dL Creatinine 1.1 (0.8-1.3) mg/dL Est Cr Clr Drug Dosing TNP Estimated GFR (MDRD) > 60.0 ml/min Glucose 112 H (74-106) mg/dL Calcium 8.7 (8.5-10.1) mg/dL Total Bilirubin 0.3 (0.2-1.0) mg/dL AST 14 L (15-37) IU/L ALT 21 (14-63) IU/L Alkaline Phosphatase 117 H (46-116) U/L Total Protein 6.7 (6.4-8.2) g/dL Albumin 3.3 L (3.4-5.0) g/dL Globulin 3.4 (2.6-4.0) g/dL Albumin/Globulin Ratio 1.0 (0.9-1.6) Urine Color RED Urine Appearance CLOUDY Urine pH 7.5 (5.0-8.0) Ur Specific [place] 1.015 (1.001-1.035) Urine Protein >=300 H (NEGATIVE) mg/dL Urine Glucose (UA) NEGATIVE (NEGATIVE) mg/dL Urine Ketones 15 H (NEGATIVE) mg/dL Urine Occult Blood LARGE H (NEGATIVE) Urine Nitrite POSITIVE H (NEGATIVE) Urine Bilirubin LARGE H (NEGATIVE) Urine Ictotest NEGATIVE Urine Urobilinogen 4.0 H (<2.0) EU/dL Ur Leukocyte Esterase LARGE H (NEGATIVE) Urine RBC TOO NUMEROUS TO CT (0-2/HPF) Urine WBC 30-40 (0-5/HPF) Ur Epithelial Cells FEW (NONE-FEW) Urine Bacteria 2+ H (NEGATIVE) 11/20/18 11/20/18 Range/Units 12:00 19:11 WBC (4.0-11.0) K/uL RBC (4.50-5.90) M/uL Hgb (13.0-17.0) g/dL Hct (38.0-50.0) % MCV (80.0-98.0) fL MCH (27.0-32.0) pg MCHC (31.0-37.0) g/dL RDW Std Deviation (28.0-62.0) fl RDW Coeff of Jeanie (11.0-15.0) % Plt Count (150-400) K/uL MPV (7.40-12.00) fL Neut % (Auto) (48.0-80.0) % Lymph % (Auto) (16.0-40.0) % [place] % (Auto) (0.0-15.0) % Eos % (Auto) (0.0-7.0) % Baso % (Auto) (0.0-1.5) % Neut # (Auto) (1.4-5.7) K/uL Lymph # (Auto) (0.6-2.4) K/uL [place] # (Auto) (0.0-0.8) K/uL Eos # (Auto) (0.0-0.7) K/uL Baso # (Auto) (0.0-0.1) K/uL Nucleated RBC % /100WBC Nucleated RBCs # K/uL Lactate 1.1 (0.20-2.00) mmol/L Sodium 134 L (136-148) mmol/L Potassium 4.6 (3.5-5.1) mmol/L Chloride 100 (98-107) mmol/L Carbon Dioxide 24.1 (21.0-32.0) mmol/L BUN 19 H (7.0-18.0) mg/dL Creatinine 1.2 (0.8-1.3) mg/dL Est Cr Clr Drug Dosing 47.43 Estimated GFR (MDRD) 58.6 ml/min Glucose 98 (74-106) mg/dL Calcium 8.1 L (8.5-10.1) mg/dL Total Bilirubin (0.2-1.0) mg/dL AST (15-37) IU/L ALT (14-63) IU/L Alkaline Phosphatase (46-116) U/L Total Protein (6.4-8.2) g/dL Albumin (3.4-5.0) g/dL Globulin (2.6-4.0) g/dL Albumin/Globulin Ratio (0.9-1.6) Urine Color Urine Appearance Urine pH (5.0-8.0) Ur Specific [place] (1.001-1.035) Urine Protein (NEGATIVE) mg/dL Urine Glucose (UA) (NEGATIVE) mg/dL Urine Ketones (NEGATIVE) mg/dL Urine Occult Blood (NEGATIVE) Urine Nitrite (NEGATIVE) Urine Bilirubin (NEGATIVE) Urine Ictotest Urine Urobilinogen (<2.0) EU/dL Ur Leukocyte Esterase (NEGATIVE) Urine RBC (0-2/HPF) Urine WBC (0-5/HPF) Ur Epithelial Cells (NONE-FEW) Urine Bacteria (NEGATIVE) Result Diagrams: 11/21/18 06:37 11/21/18 06:37 Problem List Initiated/Reviewed/Updated: Yes Orders Last 24hrs: Active Orders 24 hr Category Date Time Status Admission Status [Patient Status] [ADT] Stat ADT 11/20/18 11:57 Active Antiembolic Devices [RC] PER UNIT ROUTINE Care 11/20/18 19:57 Ordered Cardiac Monitoring [RC] . DIRECTED Care 11/20/18 11:57 Active Oxygen Therapy [RC] PRN Care 11/20/18 19:57 Ordered Up ad [place] [RC] ASDIRECTED Care 11/20/18 19:57 Ordered VTE/DVT Education [RC] PER UNIT ROUTINE Care 11/20/18 19:57 Ordered Vital Signs [RC] Q4H Care 11/20/18 19:57 Ordered Regular Diet [DIET] Diet 11/20/18 Lunch Active BASIC METABOLIC PANEL,BMP [CHEM] AM Lab 11/21/18 05:11 Ordered CBC WITH AUTO DIFF [HEME] AM Lab 11/21/18 05:11 Ordered CULTURE BLOOD [BC] Stat Lab 11/20/18 11:50 Received CULTURE BLOOD [BC] Stat Lab 11/20/18 12:00 Received CULTURE URINE [RM] Stat Lab 11/20/18 11:05 Received Acetaminophen/oxyCODONE [Percocet 325-5 MG] Med 11/20/18 13:09 Active 1 tab PO QID PRN Pharmacy to Dose - Vancomycin Med 11/20/18 20:00 Ordered 1 dose .XX ASDIRECTED Sodium Chloride 0.9% [Normal Saline] 1,000 ml Med 11/20/18 13:15 Active IV ASDIRECTED Sodium Chloride 0.9% [Saline Flush] Med 11/20/18 10:41 Active 10 ml FLUSH ASDIRECTED PRN Sodium Chloride 0.9% [Saline Flush] Med 11/20/18 10:41 Active 2.5 ml FLUSH ASDIRECTED PRN Tolterodine Tartrate [Tolterodine Tartrate ER] Med 11/21/18 09:00 Ordered 4 mg PO DAILY atorvaSTATin [Lipitor] Med 11/20/18 21:00 Ordered 10 mg PO BEDTIME Blood Culture x2 Reflex Set [OM.PC] Stat Oth 11/20/18 11:40 Ordered Saline Lock Insert [OM.PC] Stat Oth 11/20/18 10:41 Ordered Sequential Compression Device [OM.PC] Per Unit Routine Oth 11/20/18 19:57 Ordered Resuscitation Status Routine Resus Stat 11/20/18 19:57 Ordered Medication Orders Atorvastatin Calcium (Lipitor) 10 mg PO BEDTIME ZOHAIB Sodium Chloride (Normal Saline) 1,000 mls @ 125 mls/hr IV ASDIRECTED ZOHAIB Last Admin: 11/20/18 16:09 Dose: 125 mls/hr Non-Formulary Medication (Tolterodine Tartrate [Tolterodine Tartrate Er]) 4 mg PO DAILY ZOHAIB Oxycodone/Acetaminophen (Percocet 325-5 Mg) 1 tab PO QID PRN PRN Reason: Abdominal Pain Last Admin: 11/20/18 13:57 Dose: 1 tab Sodium Chloride (Saline Flush) 10 ml FLUSH ASDIRECTED PRN PRN Reason: Keep Vein Open Sodium Chloride (Saline Flush) 2.5 ml FLUSH ASDIRECTED PRN PRN Reason: Keep Vein Open Vancomycin HCl (Pharmacy To Dose - Vancomycin) 1 dose .XX ASDIRECTED [facility] Assessment/Plan Comment:: 78 yo male admitted with hypotension and hyponatremia. We will hold his antihypertensive medications and hydrate with IV fluids of normal saline. Patient has been treated with rocephin and vancomycin for possible UTI and cellulitis around suprapubic catheter site.
[2018-11-20] MEDS ORDERED: atorvaSTATin 10 MG Tab PO SCH (21:00)
[2018-11-20] MEDS ORDERED: Vancomycin 1 GM SDV ONE (21:34)
[2018-11-21] MEDS: Acetaminophen/oxyCODONE 325-5 MG Tab PO PRN ×3 (02:05→14:29)
[2018-11-21] MEDS: Sodium Chloride 0.9% 1,000 ML IV SCH (05:40)
[2018-11-21 07:05] LABS: CHLORIDE,CL 102 mmol/L (98-107); SODIUM,NA 133 mmol/L (136-148)
[2018-11-21] MEDS ORDERED: Tolterodine 2 MG Cap.ER PO SCH (09:00)
[2018-11-21 12:44] VITALS: BP 128/61
[2018-11-21] MEDS ORDERED: Bacitracin Oint 1 GM U/D Packet TOP ONE (13:26)
--- NOTE | 2018-11-21 13:33 | PCM.DCSUM1 ---
Discharge Summary - Hospital Course Brief History: 78 yo male with past medical history of prostate cancer ten years go who now has a tumor in the pelvis that is invading the bladder and rectum. He has been seen at [facility] and declined their offer of a radical surgery that would remove his leg, bladder and rectum. He may be interested in chemotherapy instead. He had a recent suprapubic catheter placed in [place]. He was noted to have low blood pressure of [address] Palomares clinic who instructed him to cut his BP pills in half. Today his blood pressure was low again and he called the ER and they instructed him to come in. He denies any symptoms of lightheadedness. fevers, or abdominal pain. His pelvic pain is controlled with Percocet but causes constipation. has noted some drainage around the suprapubic catheter site. Diagnosis: Stroke: No - Discharge Data Discharge Date: 11/21/18 Discharge Disposition: Home, Self-Care 01 Condition: Good - Patient Instructions Diet: Regular Diet as Tolerated Activity: As Tolerated Other/Special Instructions: Monitor Blood pressure, notify MD if top number is below 90 or above 180. - Discharge Plan *PRESCRIPTION DRUG MONITORING PROGRAM REVIEWED*: Not Applicable *COPY OF PRESCRIPTION DRUG MONITORING REPORT IN PATIENT MARYSE: Not Applicable Prescriptions/Med Rec: cephALEXin [Keflex] 500 mg PO Q8H #21 cap Home Medications: Home Meds atorvaSTATin Calcium [Atorvastatin Calcium] 10 mg PO BEDTIME 07/21/17 [History] oxyCODONE HCl/Acetaminophen [Percocet 5-325 mg Tablet] 1 tab PO QID PRN [History] Tolterodine Tartrate [Tolterodine Tartrate ER] 4 mg PO DAILY 11/20/18 [History] cephALEXin [Keflex] 500 mg PO Q8H #21 cap 11/21/18 [Rx] Patient Handouts: Hyponatremia, [id number], Hypotension, [id number], Cephalexin tablets or capsules Referrals: Soy Palomares MD [Primary Care Provider] - - Discharge Summary/Plan Comment DC Time >30 min.: Yes Discharge Summary/Plan Comment: Admitting diagnoses: Hypotension Hyponatremia Discharge Diagnoses: Hypotension Hyponatremia-resolved UTI/Cellulitis around suprapubic catheter Wes was admitted and monitored due to hypotension and hyponatremia. He was treated with IVFs and BP medications were stopped. BP improved, 120-130 SBP. He is feeling much better, Na 133 today. I spoke with Dr Mccall, upon patient and request. He will call them and contact them regarding next steps in treatment. He gave me instructions to remove stitch from around suprapubic catheter and to send home with bacitracin and apply that to site and cover with 2x2 BID. He was instructed to stop on BP medications and monitor BP at home. and him were notified Dr Mccall will be contacting them. PC follow up in 1 week. They are to return to ED or clinic if concerns should arise. - General Info Date of Service: 11/21/18 Admission Dx/Problem (Free Text: Admission Diagnosis/Problem Admission Diagnosis/Problem Hyponatremia Subjective Update: Feeling improved today. No concerns. No chest pain or SOB. Functional Status: Reports: Pain Controlled, Tolerating Diet, Ambulating, Urinating - Review of Systems General: Reports: No Symptoms. Denies: Weakness, Fatigue, Malaise HEENT: Reports: No Symptoms. Denies: Headaches, Sore Throat, Visual Changes Pulmonary: Reports: No Symptoms. Denies: Shortness of Breath Cardiovascular: Reports: No Symptoms. Denies: Chest Pain Gastrointestinal: Reports: No Symptoms. Denies: Nausea Genitourinary: Reports: No Symptoms. Denies: Dysuria, Frequency, Burning Musculoskeletal: Reports: Other (pelvic pain) Skin: Reports: No Symptoms Psychiatric: Reports: No Symptoms - Patient Data Vitals - Most Recent: Last Vital Signs Temp 98.0 F 11/21/18 12:00 Pulse 72 11/21/18 12:00 Resp 16 11/21/18 12:00 BP 128/61 11/21/18 12:00 Pulse Ox 96 11/21/18 12:00 Orthostatic Blood Pressure [ 104/60 Standing] Orthostatic Blood Pressure [ 98/57 Sitting] Orthostatic Blood Pressure [ 92/46 Supine] Weight - Most Recent: 68.256 kg I&O - Last 24 hours: Intake & Output 11/20/18 11/21/18 11/21/18 22:59 06:59 14:59 Intake Total 1068 1630 250 Output Total 1050 Balance 18 1630 250 Lab Results - Last 24 hrs: Laboratory Results - last 24 hr 07/14/19 07/15/19 07/15/19 Range/Units 19:11 06:37 06:37 WBC 6.41 (4.0-11.0) K/uL RBC 3.25 L (4.50-5.90) M/uL Hgb 10.2 L (13.0-17.0) g/dL Hct 30.3 L (38.0-50.0) % MCV 93.2 (80.0-98.0) fL MCH 31.4 (27.0-32.0) pg MCHC 33.7 (31.0-37.0) g/dL RDW Std Deviation 43.3 (28.0-62.0) fl RDW Coeff of Jeanie 13 (11.0-15.0) % Plt Count 306 (150-400) K/uL MPV 8.40 (7.40-12.00) fL Neut % (Auto) 67.9 (48.0-80.0) % Lymph % (Auto) 19.8 (16.0-40.0) % [place] % (Auto) 8.1 (0.0-15.0) % Eos % (Auto) 3.7 (0.0-7.0) % Baso % (Auto) 0.5 (0.0-1.5) % Neut # (Auto) 4.4 (1.4-5.7) K/uL Lymph # (Auto) 1.3 (0.6-2.4) K/uL [place] # (Auto) 0.5 (0.0-0.8) K/uL Eos # (Auto) 0.2 (0.0-0.7) K/uL Baso # (Auto) 0.0 (0.0-0.1) K/uL Nucleated RBC % 0.0 /100WBC Nucleated RBCs # 0 K/uL Sodium 134 L 133 L (136-148) mmol/L Potassium 4.6 4.5 (3.5-5.1) mmol/L Chloride 100 102 (98-107) mmol/L Carbon Dioxide 24.1 22.2 (21.0-32.0) mmol/L BUN 19 H 15 (7.0-18.0) mg/dL Creatinine 1.2 0.9 (0.8-1.3) mg/dL Est Cr Clr Drug Dosing 47.43 63.24 mL/min Estimated GFR (MDRD) 58.6 > 60.0 ml/min Glucose 98 92 (74-106) mg/dL Calcium 8.1 L 8.4 L (8.5-10.1) mg/dL MICHAEL Results - Last 24 hrs: Microbiology 11/20/18 12:00 Aerobic Blood Culture - Preliminary Blood - Venous - Lab Draw NO GROWTH AFTER 1 DAY Anaerobic Blood Culture - Preliminary NO GROWTH AFTER 1 DAY 11/20/18 11:50 Aerobic Blood Culture - Preliminary Blood - Venous NO GROWTH AFTER 1 DAY Anaerobic Blood Culture - Preliminary NO GROWTH AFTER 1 DAY Med Orders - Current: Current Medications Atorvastatin Calcium (Lipitor) 10 mg PO BEDTIME [facility] Last Admin: 11/20/18 20:26 Dose: 10 mg Sodium Chloride (Normal Saline) 1,000 mls @ 125 mls/hr IV ASDIRECTED [facility] Last Admin: 11/21/18 05:40 Dose: 125 mls/hr Vancomycin HCl 1 gm/ Sodium (Chloride) 250 mls @ 166 mls/hr IV Q12H [facility] Last Admin: 11/21/18 08:02 Dose: 166 mls/hr Oxycodone/Acetaminophen (Percocet 325-5 Mg) 1 tab PO QID PRN PRN Reason: Abdominal Pain Last Admin: 11/21/18 08:00 Dose: 1 tab Sodium Chloride (Saline Flush) 10 ml FLUSH ASDIRECTED PRN PRN Reason: Keep Vein Open Sodium Chloride (Saline Flush) 2.5 ml FLUSH ASDIRECTED PRN PRN Reason: Keep Vein Open Tolterodine Tartrate (Detrol La 24 Hr) 4 mg PO DAILY [facility] Last Admin: 11/21/18 08:01 Dose: 4 mg Vancomycin HCl (Pharmacy To Dose - Vancomycin) 1 dose .XX ASDIRECTED [facility] Discontinued Medications Bacitracin (Bacitracin Oint 1 Gm) 1 dose TOP ONETIME ONE Stop: 11/21/18 13:27 Sodium Chloride (Normal Saline) 1,000 mls @ 999 mls/hr IV STAT ONE Stop: 11/20/18 11:41 Last Admin: 11/20/18 10:54 Dose: 999 mls/hr Sodium Chloride (Normal Saline) 1,000 mls @ 125 mls/hr IV ASDIRECTED [facility] Last Admin: 11/20/18 11:45 Dose: 125 mls/hr Ceftriaxone Sodium/Dextrose 1 (gm/ Premix) 50 mls @ 100 mls/hr IV ONETIME ONE Stop: 11/20/18 18:25 Last Admin: 11/20/18 18:15 Dose: 100 mls/hr Vancomycin HCl 1 gm/ Sodium (Chloride) 250 mls @ 166 mls/hr IV Q12H [facility] Last Admin: 11/20/18 21:47 Dose: 166 mls/hr Vancomycin HCl (Vancomycin) Confirm Administered Dose 1 gm .ROUTE .STK-MED ONE Stop: 11/20/18 21:35 Last Admin: 11/20/18 21:50 Dose: Not Given - Exam General: Reports: Alert, Oriented, Cooperative Lungs: Reports: Clear to Auscultation, Normal Respiratory Effort Cardiovascular: Reports: Regular Rate, Regular Rhythm GI/Abdominal Exam: Normal Bowel Sounds, Soft, Non-Tender Back Exam: Reports: Normal Inspection, Full Range of Motion Wound/Incisions: Reports: Drainage, Erythema (circumferential suprapubic catheter insertion site, scant drainage noted. Stitch in place. Removed via direction Dr Mccall. ) Neurological: Reports: No New Focal Deficit Psy/Mental Status: Reports: Alert, Normal Affect, Normal Mood
[2018-11-21] MEDS ORDERED: Bacitracin Oint 28.35 GM Tube TOP SCH (15:41)
== END 2018-11-21 15:45 | disposition home or self-care (01) ==
LOC: MW.ED 10:20 → MW.MS 11:57
PROVIDERS: ADMIT Internal Medicine; ATTEND Internal Medicine
DX: I95.9 Hypotension, unspecified (principal); E87.1 Hypo-osmolality and hyponatremia; I10 Essential (primary) hypertension; E78.00 Pure hypercholesterolemia, unspecified; C79.51 Secondary malignant neoplasm of bone; C78.5 Secondary malignant neoplasm of large intestine and rectum; C79.11 Secondary malignant neoplasm of bladder; Z85.46 Personal history of malignant neoplasm of prostate; Z79.899 Other long term (current) drug therapy
CPT/HCPCS: 36415; 80048; 80053; 81001; 83605; 85025; 87040; 87070; 87086; 87088; 87186; 93005; 96361; 96365; 96366; 96375; 99285; A4217; A9270; G0378; J0696; J3370; J7040; J7050; 87077; 96360

== ENCOUNTER 2018-12-23 21:04 | Inpatient (IN) | payer MEDICARE, BC ==
[2018-12-23] MEDS ORDERED: Sodium Chloride 0.9% 1,000 ML IV SCH (21:45)
[2018-12-23] MEDS ORDERED: Acetaminophen 325 MG Tab PO ONE (21:46)
[2018-12-23] MEDS ORDERED: Acetaminophen 325 MG Tab ONE (21:47)
--- NOTE | 2018-12-23 22:06 | EDM.PDOC ---
ED HPI GENERAL MEDICAL PROBLEM - General Chief Complaint: General Stated Complaint: DEHYDRATION Time Seen by Provider: 12/23/18 22:04 Source of Information: Reports: Patient - History of Present Illness INITIAL COMMENTS - FREE TEXT/NARRATIVE: HISTORY AND PHYSICAL: History of present illness: [Patient with history of bladder cancer and subsequent high-grade osteosarcoma presents with fever and weakness, he is currently on chemotherapy No nausea vomiting chest pain shortness breath headache dizziness palpitation ] Review of systems: As per history of present illness and below otherwise all systems reviewed and negative. Past medical history: As per history of present illness and as reviewed below otherwise noncontributory. Surgical history: As per history of present illness and as reviewed below otherwise noncontributory. Social history: No reported history of drug or alcohol abuse. Family history: As per history of present illness and as reviewed below otherwise noncontributory. Physical exam: HEENT: Atraumatic, normocephalic, pupils reactive, negative for conjunctival pallor or scleral icterus, mucous membranes moist, throat clear, neck supple, nontender, trachea midline. Lungs: Clear to auscultation, breath sounds equal bilaterally, chest nontender. Heart: S1S2, regular, negative for clicks, rubs, or JVD. Abdomen: Soft, nondistended, nontender. Negative for masses or hepatosplenomegaly. Negative for costovertebral tenderness. Pelvis: Stable nontender. Genitourinary: Deferred. Rectal: Deferred. Extremities: Atraumatic, negative for cords or calf pain. Neurovascular unremarkable. Neuro: Awake, alert, oriented. Cranial nerves II through XII unremarkable. Cerebellum unremarkable. Motor and sensory unremarkable throughout. Exam nonfocal. Diagnostics: [CBC CMP UA chest 1 view blood cultures 2 lactic acid type and screen ] Therapeutics: [Normal saline Zosyn Vancomycin ]2 units of leukocyte depleted blood for transfusion Impression: [ fever anemia Electrolyte abnormalities Osteosarcoma on chemotherapy ] Definitive disposition and diagnosis as appropriate pending reevaluation and review of above. - Related Data Allergies Allergy/AdvReac Type Severity Reaction Status Date / Time No Known Allergies Allergy Verified 12/23/18 21:20 Home Meds: Home Meds oxyCODONE HCl/Acetaminophen [Percocet 5-325 mg Tablet] 1 tab PO QID PRN [History] Past Medical History HEENT History: Reports: Other (See Below) Other HEENT History: wears glasses, has upper denture and lower partial removable denture Cardiovascular History: Reports: High Cholesterol, Hypertension Respiratory History: Reports: None Gastrointestinal History: Reports: None Genitourinary History: Reports: Other (See Below) Other Genitourinary History: hx of prostate cancer, suprapubic catheter Musculoskeletal History: Reports: Arthritis, Gout Other Musculoskeletal History: hx of arthritis in hands Neurological History: Reports: None Psychiatric History: Reports: None Endocrine/Metabolic History: Reports: None Hematologic History: Reports: Blood Transfusion(s), Other (See Below) Other Hematologic History: blood transusion when he had his prostate surgery Immunologic History: Reports: None Oncologic (Cancer) History: Reports: Prostate, Other (See Below) Other Oncologic History: 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 Has a suprapubic catheter Endocrine Surgical History: Reports: None Neurological Surgical History: Reports: Laminectomy Musculoskeletal Surgical History: Reports: Carpal Tunnel Other Oncologic Surgeries/Procedures: prostatectomy Dermatological Surgical History: Reports: Other (See Below) Social & Family History - Family History Family Medical History: Noncontributory Neurological: Reports: Parkinson's Endocrine/Metabolic: Reports: Diabetes, type II - Tobacco Use Smoking Status *Q: Never Smoker - Caffeine Use Caffeine Use: Reports: Coffee Caffeine Use Comment: About 3 cup a day - Recreational Drug Use Recreational Drug Use: No ED ROS GENERAL - Review of Systems Review Of Systems: See Below ED EXAM, GENERAL - Physical Exam Exam: See Below Course - Vital Signs Last Recorded V/S: Last Vital Signs Temp 101.7 F H 12/23/18 22:30 Pulse 103 H 12/23/18 22:30 Resp 16 12/23/18 21:15 BP 93/55 L 12/23/18 22:30 Pulse Ox 100 12/23/18 21:15 - Orders/Labs/Meds Orders: Active Orders 24 hr Category Date Time Status Chest 1V Frontal [CR] Stat Exams 12/23/18 21:20 Taken CULTURE BLOOD [BC] Stat Lab 12/23/18 21:41 Received CULTURE BLOOD [BC] Stat Lab 12/23/18 22:02 Received TYPE AND SCREEN [BBK] Stat Lab 12/23/18 21:41 Received UA RFX MICHAEL AND CULT IF INDIC [URIN] Stat Lab 12/23/18 22:20 Received Piperacillin/Tazobactam [Piperacil-Tazobact] 3.375 gm Med 12/23/18 22:07 Active Sodium Chloride 0.9% [Normal Saline] 50 ml IV ONETIME Piperacillin/Tazobactam [Zosyn] 2.25 gm Med 12/23/18 22:15 Active Sodium Chloride 0.9% [Normal Saline] 50 ml IV ONETIME Sodium Chloride 0.9% [Normal Saline] 1,000 ml Med 12/23/18 21:45 Active IV STAT Vancomycin 1 gm Med 12/23/18 22:07 Active Sodium Chloride 0.9% [Normal Saline (AdvBag)] 250 ml IV ONETIME Blood Culture x2 Reflex Set [OM.PC] Stat Oth 12/23/18 21:20 Ordered Medication Orders Sodium Chloride (Normal Saline) 1,000 mls @ 125 mls/hr IV STAT [facility] Last Admin: 12/23/18 21:51 Dose: 125 mls/hr Piperacillin Sod/Tazobactam (Sod 3.375 gm/ Sodium Chloride) 50 mls @ 100 mls/ hr IV ONETIME ONE Stop: 12/23/18 22:36 Vancomycin HCl 1 gm/ Sodium (Chloride) 250 mls @ 166 mls/hr IV ONETIME ONE Stop: 12/23/18 23:37 Last Admin: 12/23/18 22:26 Dose: 166 mls/hr Piperacillin Sod/Tazobactam (Sod 2.25 gm/ Sodium Chloride) 50 mls @ 100 mls/hr IV ONETIME ONE Stop: 12/23/18 22:44 Last Admin: 12/23/18 22:26 Dose: 100 mls/hr Labs: Laboratory Tests 12/23/18 12/23/18 12/23/18 Range/Units 21:41 21:41 21:41 WBC 2.52 L (4.0-11.0) K/uL RBC 2.15 L (4.50-5.90) M/uL Hgb 6.7 L (13.0-17.0) g/dL Hct 19.9 L (38.0-50.0) % MCV 92.6 (80.0-98.0) fL MCH 31.2 (27.0-32.0) pg MCHC 33.7 (31.0-37.0) g/dL RDW Std Deviation 49.0 (28.0-62.0) fl RDW Coeff of Jeanie 14 (11.0-15.0) % Plt Count 296 (150-400) K/uL MPV 8.50 (7.40-12.00) fL Neut % (Auto) 77.0 (48.0-80.0) % Lymph % (Auto) 9.1 L (16.0-40.0) % [place] % (Auto) 13.9 (0.0-15.0) % Eos % (Auto) 0.0 (0.0-7.0) % Baso % (Auto) 0.0 (0.0-1.5) % Neut # (Auto) 1.9 (1.4-5.7) K/uL Lymph # (Auto) 0.2 L (0.6-2.4) K/uL [place] # (Auto) 0.4 (0.0-0.8) K/uL Eos # (Auto) 0.0 (0.0-0.7) K/uL Baso # (Auto) 0.0 (0.0-0.1) K/uL Nucleated RBC % 0.0 /100WBC Nucleated RBCs # 0 K/uL Lactate 0.9 (0.20-2.00) mmol/L Sodium 127 L (136-148) mmol/L Potassium 4.5 (3.5-5.1) mmol/L Chloride 92 L (98-107) mmol/L Carbon Dioxide 25.7 (21.0-32.0) mmol/L BUN 34 H (7.0-18.0) mg/dL Creatinine 1.4 H (0.8-1.3) mg/dL Est Cr Clr Drug Dosing 39.62 mL/min Estimated GFR (MDRD) 49.0 ml/min Glucose 127 H (74-106) mg/dL Calcium 8.3 L (8.5-10.1) mg/dL Total Bilirubin 0.4 (0.2-1.0) mg/dL AST 39 H (15-37) IU/L ALT 49 (14-63) IU/L Alkaline Phosphatase 94 (46-116) U/L Total Protein 5.7 L (6.4-8.2) g/dL Albumin 1.9 L (3.4-5.0) g/dL Globulin 3.8 (2.6-4.0) g/dL Albumin/Globulin Ratio 0.5 L (0.9-1.6) Meds: Medications Generic Name Dose Route Start Last Admin Trade Name Freq PRN Reason Stop Dose Admin Sodium Chloride 1,000 mls @ 125 mls/hr 12/23/18 21:45 12/23/18 21:51 Normal Saline IV 125 mls/hr STAT [facility] Administration Piperacillin Sod/Tazobactam 50 mls @ 100 mls/hr 12/23/18 22:07 Sod 3.375 gm/ Sodium Chloride IV 12/23/18 22:36 ONETIME ONE Vancomycin HCl 1 gm/ Sodium 250 mls @ 166 mls/hr 12/23/18 22:07 12/23/18 22: 26 Chloride IV 12/23/18 23:37 166 mls/hr ONETIME ONE Administration Piperacillin Sod/Tazobactam 50 mls @ 100 mls/hr 12/23/18 22:15 12/23/18 22:26 Sod 2.25 gm/ Sodium Chloride IV 12/23/18 22:44 100 mls/hr ONETIME ONE Administration Discontinued Medications Generic Name Dose Route Start Last Admin Trade Name Freq PRN Reason Stop Dose Admin Acetaminophen 650 mg 12/23/18 21:46 12/23/18 21:49 Tylenol PO 12/23/18 21:47 650 mg NOW ONE Administration Acetaminophen Confirm 12/23/18 21:47 12/23/18 22:04 Tylenol Administered 12/23/18 21:48 Not Given Dose 650 mg .ROUTE .STK-MED ONE Sodium Chloride Confirm 12/23/18 22:18 Normal Saline Administered 12/23/18 22:19 Dose 50 mls @ as directed .ROUTE .STK-MED ONE Piperacillin Sod/Tazobactam Sod Confirm 12/23/18 22:16 Zosyn Administered 12/23/18 22:17 Dose 2.25 gm .ROUTE .STK-MED ONE Departure - Departure Time of Disposition: 22:32 Disposition: Refer to Observation Condition: Poor Clinical Impression: Fever, Electrolyte abnormality, Anemia - Discharge Information Referrals: Soy Palomares MD [Primary Care Provider] - Forms: ED Department Discharge - My Orders Last 24 Hours: My Active Orders 12/23/18 21:20 Chest 1V Frontal [CR] Stat Blood Culture x2 Reflex Set [OM.PC] Stat 12/23/18 21:41 CULTURE BLOOD [BC] Stat TYPE AND SCREEN [BBK] Stat 12/23/18 21:45 Sodium Chloride 0.9% [Normal Saline] 1,000 ml IV STAT 12/23/18 22:02 CULTURE BLOOD [BC] Stat 12/23/18 22:07 Piperacillin/Tazobactam [Piperacil-Tazobact] 3.375 gm Sodium Chloride 0.9% [ Normal Saline] 50 ml IV ONETIME Vancomycin 1 gm Sodium Chloride 0.9% [Normal Saline (AdvBag)] 250 ml IV ONETIME 12/23/18 22:15 Piperacillin/Tazobactam [Zosyn] 2.25 gm Sodium Chloride 0.9% [Normal Saline] 50 ml IV ONETIME 12/23/18 22:20 UA RFX MICHAEL AND CULT IF INDIC [URIN] Stat - Assessment/Plan Last 24 Hours: My Active Orders 12/23/18 21:20 Chest 1V Frontal [CR] Stat Blood Culture x2 Reflex Set [OM.PC] Stat 12/23/18 21:41 CULTURE BLOOD [BC] Stat TYPE AND SCREEN [BBK] Stat 12/23/18 21:45 Sodium Chloride 0.9% [Normal Saline] 1,000 ml IV STAT 12/23/18 22:02 CULTURE BLOOD [BC] Stat 12/23/18 22:07 Piperacillin/Tazobactam [Piperacil-Tazobact] 3.375 gm Sodium Chloride 0.9% [ Normal Saline] 50 ml IV ONETIME Vancomycin 1 gm Sodium Chloride 0.9% [Normal Saline (AdvBag)] 250 ml IV ONETIME 12/23/18 22:15 Piperacillin/Tazobactam [Zosyn] 2.25 gm Sodium Chloride 0.9% [Normal Saline] 50 ml IV ONETIME 12/23/18 22:20 UA RFX MICHAEL AND CULT IF INDIC [URIN] Stat
[2018-12-23] MEDS ORDERED: Piperacillin/Tazobactam 3.375 GM in Sodium Chloride 0.9% 50 ML IV ONE (22:07)
[2018-12-23 22:09] LABS: CARBON DIOXIDE,CO2 25.7 mmol/L (21.0-32.0); POTASSIUM,K 4.5 mmol/L (3.5-5.1)
[2018-12-23] MEDS ORDERED: Piperacillin/Tazobactam 2.25 GM in Sodium Chloride 0.9% 50 ML IV ONE (22:15)
[2018-12-23] MEDS ORDERED: Sodium Chloride 0.9% 50 ML ONE (22:18)
--- NOTE | 2018-12-23 22:59 | CR ---
Indication: Fever Technique: Chest 1 view Comparison: 10/17/2018 Findings/Impression: Cardiovascular and mediastinum: Normal cardiac size. Aortic arch calcifications. Lungs and pleural space: Lungs are clear. No sign of infiltrate or mass. No sign of pleural effusion. No pneumothorax. Bones and soft tissues: A right chest Port-A-Cath with the tip in the SVC. Grossly stable osseous structures. Dictated by Timoteo Dash MD @ 12/23/2018 10:56:32 PM Dictated by: Timoteo Dash MD @ 12/23/2018 22:57:51 (Electronically Signed)
[2018-12-24] MEDS ORDERED: Sodium Chloride 0.9% 10 ML Syringe FLUSH PRN (00:09)
[2018-12-24] MEDS ORDERED: Sodium Chloride 0.9% 2.5 ML Syringe FLUSH PRN (00:09)
[2018-12-24 06:41] LABS: CARBON DIOXIDE,CO2 25.4 mmol/L (21.0-32.0); POTASSIUM,K 4.4 mmol/L (3.5-5.1)
[2018-12-24] MEDS ORDERED: Lactated Ringers 1,000 ML IV SCH (07:15)
[2018-12-24] MEDS: oxyCODONE 5 MG Tab PO PRN ×3 (07:49→21:15)
[2018-12-24] MEDS: Acetaminophen 325 MG Tab PO PRN ×2 (07:50→14:30)
[2018-12-24] MEDS ORDERED: Ondansetron 4 MG/2 ML SDV IVPUSH PRN (08:47)
[2018-12-24] MEDS ORDERED: Ondansetron 4 MG Tab.DIS PO PRN (08:47)
[2018-12-24] MEDS ORDERED: Heparin Sodium 5,000 Units/ML Vial SUBCUT SCH (09:00)
--- NOTE | 2018-12-24 09:20 | PCM.HP.2 ---
<Rahat Franklin M - Last Filed: 12/24/18 09:36> H&P History of Present Illness - General Date of Service: 12/24/18 Admit Problem/Dx: Admission Diagnosis/Problem Admission Diagnosis/Problem Fever - History of Present Illness Initial Comments - Free Text/Narative: 78-year-old male presented with fevers for past 1 day. He has a PMH of bladder cancer and osteosarcoma and is on chemotherapy and radiation. He has a suprapubic catheter in place as well as a right chest port. He is accompanied by his who reports that for the past few days he has been feeling more fatigued, not talking as much and then started developing fevers yesterday. Patient oncologist is Dr. Washburn and had his first dose of chemotherapy on 12/07. His next dose of chemotherapy is on 01/04. He has also been receiving radiation therapy. also reports that he has been seeing Dr. Beverly since having his suprapubic catheter placed last month. At his baseline, patient ambulates on his own but has felt weaker over the past few days. At bedside, patient complains of feeling hot but otherwise denies any shortness of breath, chest pain or nausea. He does complain of painful bladder spasms for which he is on chronic pain medication. On admission, CXR was negative and urinalysis was esterase and nitrite positive. Blood cultures and urine cultures pending. Patient hemoglobin was found to be 6.7 and was transfused with 2 units of leukocyte depleted blood. He also received a dose of vancomycin and zosyn. - Related Data Allergies/Adverse Reactions: Allergies Allergy/AdvReac Type Severity Reaction Status Date / Time No Known Allergies Allergy Verified 12/24/18 01:26 Home Medications: Home Meds oxyCODONE HCl/Acetaminophen [Percocet 5-325 mg Tablet] 1 tab PO QID 11/07/18 [ History] Fesoterodine Fumarate [Toviaz] 8 mg PO DAILY 12/24/18 [History] L.acidoph,Paracasei, B.lactis [Probiotic] 1 each PO DAILY 12/24/18 [History] Opium/Belladonna Alkaloids [Belladonna-Opium 16.2-30 Supp] 1 supp RECTAL Q6HR PRN 12/24/18 [History] Past Medical History HEENT History: Reports: Other (See Below) Other HEENT History: wears glasses, has upper denture and lower partial removable denture Cardiovascular History: Reports: High Cholesterol, Hypertension Respiratory History: Reports: None Gastrointestinal History: Reports: None Genitourinary History: Reports: Other (See Below) Other Genitourinary History: hx of prostate cancer, suprapubic catheter Musculoskeletal History: Reports: Arthritis, Gout Other Musculoskeletal History: hx of arthritis in hands Neurological History: Reports: None Psychiatric History: Reports: None Endocrine/Metabolic History: Reports: None Hematologic History: Reports: Blood Transfusion(s), Other (See Below) Other Hematologic History: blood transusion when he had his prostate surgery Immunologic History: Reports: None Oncologic (Cancer) History: Reports: Prostate, Other (See Below) Other Oncologic History: 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 Has a suprapubic catheter Endocrine Surgical History: Reports: None Neurological Surgical History: Reports: Laminectomy Musculoskeletal Surgical History: Reports: Carpal Tunnel Other Oncologic Surgeries/Procedures: prostatectomy Dermatological Surgical History: Reports: Other (See Below) Social & Family History - Family History Family Medical History: Noncontributory Neurological: Reports: Parkinson's Endocrine/Metabolic: Reports: Diabetes, type II - Tobacco Use Smoking Status *Q: Never Smoker Second Hand Smoke Exposure: No - Caffeine Use Caffeine Use: Reports: Coffee Other Caffeine Use: 3 cups per day Caffeine Use Comment: About 3 cup a day - Recreational Drug Use Recreational Drug Use: No H&P Review of Systems - Review of Systems: Review Of Systems: ROS reveals no pertinent complaints other than HPI. Exam - Exam Exam: See Below - Vital Signs Vital Signs: Last Vital Signs Temp 100.3 F 12/24/18 07:50 Pulse 95 12/24/18 06:50 Resp 18 12/24/18 06:50 BP 136/65 12/24/18 06:50 Pulse Ox 95 12/24/18 00:00 Weight: 61.887 kg - Exam General: Alert, Oriented, Cooperative, Mild Distress HEENT: Conjunctiva Clear, EOMI, Hearing Intact, Posterior Pharynx Clear, Pupils Equal Neck: Supple, Trachea Midline Lungs: Clear to Auscultation, Normal Respiratory Effort, Other (right chest port in place) Cardiovascular: Regular Rate, Regular Rhythm GI/Abdominal Exam: Normal Bowel Sounds, Soft, Non-Tender, No Distention, Other ( suprapubic catheter in place draining dark brown colored urine) Extremities: Normal Inspection, No Pedal Edema Peripheral Pulses: 2+: Posterior Tibial (L), Posterior Tibial (R) Skin: Warm, Dry, Intact Neurological: Cranial Nerves Intact, Normal Speech, Normal Tone, Sensation Intact Psychiatric: Alert, Normal Affect, Normal Mood - Patient Data Lab Results Last 24 hrs: Laboratory Results - last 24 hr 12/23/18 12/23/18 12/23/18 Range/Units 21:41 21:41 21:41 WBC 2.52 L (4.0-11.0) K/uL RBC 2.15 L (4.50-5.90) M/uL Hgb 6.7 L (13.0-17.0) g/dL Hct 19.9 L (38.0-50.0) % MCV 92.6 (80.0-98.0) fL MCH 31.2 (27.0-32.0) pg MCHC 33.7 (31.0-37.0) g/dL RDW Std Deviation 49.0 (28.0-62.0) fl RDW Coeff of Jeanie 14 (11.0-15.0) % Plt Count 296 (150-400) K/uL MPV 8.50 (7.40-12.00) fL Neut % (Auto) 77.0 (48.0-80.0) % Lymph % (Auto) 9.1 L (16.0-40.0) % Beadle % (Auto) 13.9 (0.0-15.0) % Eos % (Auto) 0.0 (0.0-7.0) % Baso % (Auto) 0.0 (0.0-1.5) % Neut # (Auto) 1.9 (1.4-5.7) K/uL Lymph # (Auto) 0.2 L (0.6-2.4) K/uL Beadle # (Auto) 0.4 (0.0-0.8) K/uL Eos # (Auto) 0.0 (0.0-0.7) K/uL Baso # (Auto) 0.0 (0.0-0.1) K/uL Nucleated RBC % 0.0 /100WBC Nucleated RBCs # 0 K/uL Lactate 0.9 (0.20-2.00) mmol/L Sodium 127 L (136-148) mmol/L Potassium 4.5 (3.5-5.1) mmol/L Chloride 92 L (98-107) mmol/L Carbon Dioxide 25.7 (21.0-32.0) mmol/L BUN 34 H (7.0-18.0) mg/dL Creatinine 1.4 H (0.8-1.3) mg/dL Est Cr Clr Drug Dosing 39.62 mL/min Estimated GFR (MDRD) 49.0 ml/min Glucose 127 H (74-106) mg/dL Calcium 8.3 L (8.5-10.1) mg/dL Total Bilirubin 0.4 (0.2-1.0) mg/dL AST 39 H (15-37) IU/L ALT 49 (14-63) IU/L Alkaline Phosphatase 94 (46-116) U/L Total Protein 5.7 L (6.4-8.2) g/dL Albumin 1.9 L (3.4-5.0) g/dL Globulin 3.8 (2.6-4.0) g/dL Albumin/Globulin Ratio 0.5 L (0.9-1.6) Urine Color Urine Appearance Urine pH (5.0-8.0) Ur Specific Hamilton (1.001-1.035) Urine Protein (NEGATIVE) mg/dL Urine Glucose (UA) (NEGATIVE) mg/dL Urine Ketones (NEGATIVE) mg/dL Urine Occult Blood (NEGATIVE) Urine Nitrite (NEGATIVE) Urine Bilirubin (NEGATIVE) Urine Ictotest Urine Urobilinogen (<2.0) EU/dL Ur Leukocyte Esterase (NEGATIVE) Urine RBC (0-2/HPF) Urine WBC (0-5/HPF) Ur Epithelial Cells (NONE-FEW) Urine Bacteria (NEGATIVE) Urinalysis Comment Blood Type Antibody Screen Crossmatch 12/23/18 12/23/18 12/24/18 Range/Units 21:41 22:20 06:05 WBC 2.65 L (4.0-11.0) K/uL RBC 2.98 L (4.50-5.90) M/uL Hgb 9.0 L (13.0-17.0) g/dL Hct 26.9 L (38.0-50.0) % MCV 90.3 (80.0-98.0) fL MCH 30.2 (27.0-32.0) pg MCHC 33.5 (31.0-37.0) g/dL RDW Std Deviation 48.9 (28.0-62.0) fl RDW Coeff of Jeanie 15 (11.0-15.0) % Plt Count 294 (150-400) K/uL MPV 8.80 (7.40-12.00) fL Neut % (Auto) 77.4 (48.0-80.0) % Lymph % (Auto) 8.3 L (16.0-40.0) % Beadle % (Auto) 14.3 (0.0-15.0) % Eos % (Auto) 0.0 (0.0-7.0) % Baso % (Auto) 0.0 (0.0-1.5) % Neut # (Auto) 2.1 (1.4-5.7) K/uL Lymph # (Auto) 0.2 L (0.6-2.4) K/uL Beadle # (Auto) 0.4 (0.0-0.8) K/uL Eos # (Auto) 0.0 (0.0-0.7) K/uL Baso # (Auto) 0.0 (0.0-0.1) K/uL Nucleated RBC % 0.0 /100WBC Nucleated RBCs # 0 K/uL Lactate (0.20-2.00) mmol/L Sodium (136-148) mmol/L Potassium (3.5-5.1) mmol/L Chloride (98-107) mmol/L Carbon Dioxide (21.0-32.0) mmol/L BUN (7.0-18.0) mg/dL Creatinine (0.8-1.3) mg/dL Est Cr Clr Drug Dosing mL/min Estimated GFR (MDRD) ml/min Glucose (74-106) mg/dL Calcium (8.5-10.1) mg/dL Total Bilirubin (0.2-1.0) mg/dL AST (15-37) IU/L ALT (14-63) IU/L Alkaline Phosphatase (46-116) U/L Total Protein (6.4-8.2) g/dL Albumin (3.4-5.0) g/dL Globulin (2.6-4.0) g/dL Albumin/Globulin Ratio (0.9-1.6) Urine Color RED Urine Appearance CLOUDY Urine pH 7.0 (5.0-8.0) Ur Specific Hamilton 1.015 (1.001-1.035) Urine Protein >=300 H (NEGATIVE) mg/dL Urine Glucose (UA) NEGATIVE (NEGATIVE) mg/dL Urine Ketones NEGATIVE (NEGATIVE) mg/dL Urine Occult Blood LARGE H (NEGATIVE) Urine Nitrite POSITIVE H (NEGATIVE) Urine Bilirubin SMALL H (NEGATIVE) Urine Ictotest NEGATIVE Urine Urobilinogen 1.0 (<2.0) EU/dL Ur Leukocyte Esterase MODERATE H (NEGATIVE) Urine RBC TOO NUMEROUS TO CT (0-2/HPF) Urine WBC 45-50 (0-5/HPF) Ur Epithelial Cells RARE (NONE-FEW) Urine Bacteria RARE (NEGATIVE) Urinalysis Comment Blood Type O POSITIVE Antibody Screen NEGATIVE Crossmatch See Detail 12/24/18 Range/Units 06:05 WBC (4.0-11.0) K/uL RBC (4.50-5.90) M/uL Hgb (13.0-17.0) g/dL Hct (38.0-50.0) % MCV (80.0-98.0) fL MCH (27.0-32.0) pg MCHC (31.0-37.0) g/dL RDW Std Deviation (28.0-62.0) fl RDW Coeff of Jeanie (11.0-15.0) % Plt Count (150-400) K/uL MPV (7.40-12.00) fL Neut % (Auto) (48.0-80.0) % Lymph % (Auto) (16.0-40.0) % Beadle % (Auto) (0.0-15.0) % Eos % (Auto) (0.0-7.0) % Baso % (Auto) (0.0-1.5) % Neut # (Auto) (1.4-5.7) K/uL Lymph # (Auto) (0.6-2.4) K/uL Beadle # (Auto) (0.0-0.8) K/uL Eos # (Auto) (0.0-0.7) K/uL Baso # (Auto) (0.0-0.1) K/uL Nucleated RBC % /100WBC Nucleated RBCs # K/uL Lactate (0.20-2.00) mmol/L Sodium 128 L (136-148) mmol/L Potassium 4.4 (3.5-5.1) mmol/L Chloride 93 L (98-107) mmol/L Carbon Dioxide 25.4 (21.0-32.0) mmol/L BUN 31 H (7.0-18.0) mg/dL Creatinine 1.4 H (0.8-1.3) mg/dL Est Cr Clr Drug Dosing 38.07 mL/min Estimated GFR (MDRD) 49.0 ml/min Glucose 111 H (74-106) mg/dL Calcium 8.1 L (8.5-10.1) mg/dL Total Bilirubin (0.2-1.0) mg/dL AST (15-37) IU/L ALT (14-63) IU/L Alkaline Phosphatase (46-116) U/L Total Protein (6.4-8.2) g/dL Albumin (3.4-5.0) g/dL Globulin (2.6-4.0) g/dL Albumin/Globulin Ratio (0.9-1.6) Urine Color Urine Appearance Urine pH (5.0-8.0) Ur Specific Hamilton (1.001-1.035) Urine Protein (NEGATIVE) mg/dL Urine Glucose (UA) (NEGATIVE) mg/dL Urine Ketones (NEGATIVE) mg/dL Urine Occult Blood (NEGATIVE) Urine Nitrite (NEGATIVE) Urine Bilirubin (NEGATIVE) Urine Ictotest Urine Urobilinogen (<2.0) EU/dL Ur Leukocyte Esterase (NEGATIVE) Urine RBC (0-2/HPF) Urine WBC (0-5/HPF) Ur Epithelial Cells (NONE-FEW) Urine Bacteria (NEGATIVE) Urinalysis Comment Blood Type Antibody Screen Crossmatch Result Diagrams: 12/24/18 06:05 12/24/18 06:05 Problem List Initiated/Reviewed/Updated: Yes Orders Last 24hrs: Active Orders 24 hr Category Date Time Status Admission Status [Patient Status] [ADT] Stat ADT 12/23/18 22:32 Active Oxygen Therapy [RC] PRN Care 12/24/18 08:47 Active Telemetry Monitoring [Cardiac Monitoring] [RC] Q8H Care 12/24/18 01:19 Active Up With Assistance [RC] ASDIRECTED Care 12/24/18 08:47 Active VTE/DVT Education [RC] PER UNIT ROUTINE Care 12/24/18 08:47 Active Vital Signs [RC] Q4H Care 12/24/18 08:47 Active Regular Diet [DIET] Diet 12/24/18 Breakfast Active BASIC METABOLIC PANEL,BMP [CHEM] AM Lab 12/25/18 05:11 Ordered CBC WITH AUTO DIFF [HEME] AM Lab 12/25/18 05:11 Ordered CULTURE BLOOD [BC] Stat Lab 12/23/18 21:41 Received CULTURE BLOOD [BC] Stat Lab 12/23/18 22:02 Received CULTURE URINE [RM] Stat Lab 12/23/18 22:20 Received RED BLOOD CELLS LP [BBK] Stat Lab 12/23/18 21:41 Results TYPE AND SCREEN [BBK] Stat Lab 12/23/18 21:41 Results Acetaminophen [Tylenol] Med 12/24/18 00:09 Active 650 mg PO Q6H PRN Belladonna/Opium [B & O Supprettes No. 15A] Med 12/24/18 08:45 Active 1 supp RECTAL Q6HR PRN Heparin Sodium Med 12/24/18 09:00 Active 5,000 units SUBCUT Q8H Lactated Ringers [Ringers, Lactated] 1,000 ml Med 12/24/18 07:15 Active IV ASDIRECTED Ondansetron [Zofran ODT] Med 12/24/18 08:47 Active 4 mg PO Q4H PRN Ondansetron [Zofran] Med 12/24/18 08:47 Active 4 mg IVPUSH Q4H PRN Patient's Own Medication [Ptom] Med 12/24/18 09:00 Active 1 each PO DAILY Patient's Own Medication [Ptom] Med 12/24/18 09:00 Active 1 each PO DAILY Piperacillin/Tazobactam [Zosyn] 2.25 gm Med 12/24/18 09:00 Ordered Sodium Chloride 0.9% [Normal Saline] 50 ml IV Q24H Sodium Chloride 0.9% [Normal Saline] 1,000 ml Med 12/23/18 21:45 Active IV STAT Sodium Chloride 0.9% [Saline Flush] Med 12/24/18 00:09 Active 10 ml FLUSH ASDIRECTED PRN Sodium Chloride 0.9% [Saline Flush] Med 12/24/18 00:09 Active 2.5 ml FLUSH ASDIRECTED PRN oxyCODONE Med 12/24/18 00:10 Active 5 mg PO Q4H PRN Blood Culture x2 Reflex Set [OM.PC] Stat Ot 12/23/18 21:20 Ordered Convert IV to Saline Lock [OM.PC] Routine Ot 12/24/18 00:09 Ordered Transfuse RBC [Transfuse Red Blood Cells] [COMM] Stat Ot 12/23/18 22:33 Ordered Resuscitation Status Routine Resus Stat 12/24/18 08:47 Ordered Medication Orders Acetaminophen (Tylenol) 650 mg PO Q6H PRN PRN Reason: pain or fever Last Admin: 12/24/18 07:50 Dose: 650 mg Belladonna Alkaloids/Opium (B & O Supprettes No. 15a) 1 supp RECTAL Q6HR PRN PRN Reason: Spasms Heparin Sodium (Porcine) (Heparin Sodium) 5,000 units SUBCUT Q8H ZOHAIB Sodium Chloride (Normal Saline) 1,000 mls @ 125 mls/hr IV STAT ZOHAIB Last Infusion: 12/23/18 22:35 Dose: 999 mls/hr Admin: 12/23/18 21:51 Dose: 125 mls/hr Lactated Ringer's (Ringers, Lactated) 1,000 mls @ 125 mls/hr IV ASDIRECTED ZOHAIB Last Admin: 12/24/18 08:13 Dose: 125 mls/hr Piperacillin Sod/Tazobactam (Sod 2.25 gm/ Sodium Chloride) 50 mls @ 100 mls/hr IV Q24H ZOHAIB Ondansetron HCl (Zofran) 4 mg IVPUSH Q4H PRN PRN Reason: Nausea Ondansetron HCl (Zofran Odt) 4 mg PO Q4H PRN PRN Reason: nausea, able to take PO Oxycodone HCl (Oxycodone) 5 mg PO Q4H PRN PRN Reason: Pain (moderate 4-6) Last Admin: 12/24/18 07:49 Dose: 5 mg Fesoterodine Fumarate [Toviaz] 8 Mg 1 each PO DAILY ZOHAIB L.Acidoph,Paracasei, B.Lactis [Probiotic ] 1 each PO DAILY ZOHAIB Sodium Chloride (Saline Flush) 10 ml FLUSH ASDIRECTED PRN PRN Reason: Keep Vein Open Sodium Chloride (Saline Flush) 2.5 ml FLUSH ASDIRECTED PRN PRN Reason: Keep Vein Open Assessment/Plan Comment:: Assessment: 1. Fever in a patient on chemotherapy and radiation. 2. Acute normocytic anemia s/p transfusion of 2 units. 3. High grade osteosarcoma. 4. Bladder cancer s/p suprapubic catheter. 5. Acute kidney injury. 6. Past medical history of HTN, hyperlipidemia and prostate cancer s/p prostatectomy. Plan: 1. For fever, will continue empiric broad-spectrum coverage with IV Zosyn. Blood and urine cultures pending. CXR was negative and urinalysis was nitrite and esterase positive, however, patient does have chronic suprapubic catheter in place. Will follow-up on pending cultures. Will monitor for neutropenia. 2. For acute normocytic anemia, patient's hemoglobin on admission was 6.7 but has improved to 9.0 after transfusion of 2 units of leukocyte depleted blood. 3. Patient is on chemotherapy and radiation for osteosarcoma and bladder cancer. His first round of chemotherapy was on 12/07/18 and second round is on . Patient's follows Dr. Washburn of oncology. Patient has also been following Dr. Beverly since he had his suprapubic catheter placed approximately 1 month ago and has a follow-up appointment with him on 12/26/18 as per patient's . 4. For acute kidney injury, patient is on IV fluids. Will monitor with next set of labs. 5. For past medical history, will continue with home medications. <Tino Pearl - Last Filed: 12/24/18 11:18> H&P History of Present Illness - General Admit Problem/Dx: Admission Diagnosis/Problem Admission Diagnosis/Problem Fever I have examined the patient independently of medical staffing coordinator, Dr. Noemi MD. I have discussed the case with him. I have reviewed and agree with the examination and plan as outlined by him. Please see orders. Will be kept on broad spectrum antibiotics. Exam - Vital Signs Vital Signs: Last Vital Signs Temp 36.1 C 12/24/18 09:00 Pulse 95 12/24/18 06:50 Resp 18 12/24/18 06:50 BP 136/65 12/24/18 06:50 Pulse Ox 95 12/24/18 00:00 - Patient Data Lab Results Last 24 hrs: Laboratory Results - last 24 hr 12/23/18 12/23/18 12/23/18 Range/Units 21:41 21:41 21:41 WBC 2.52 L (4.0-11.0) K/uL RBC 2.15 L (4.50-5.90) M/uL Hgb 6.7 L (13.0-17.0) g/dL Hct 19.9 L (38.0-50.0) % MCV 92.6 (80.0-98.0) fL MCH 31.2 (27.0-32.0) pg MCHC 33.7 (31.0-37.0) g/dL RDW Std Deviation 49.0 (28.0-62.0) fl RDW Coeff of Jeanie 14 (11.0-15.0) % Plt Count 296 (150-400) K/uL MPV 8.50 (7.40-12.00) fL Neut % (Auto) 77.0 (48.0-80.0) % Lymph % (Auto) 9.1 L (16.0-40.0) % Beadle % (Auto) 13.9 (0.0-15.0) % Eos % (Auto) 0.0 (0.0-7.0) % Baso % (Auto) 0.0 (0.0-1.5) % Neut # (Auto) 1.9 (1.4-5.7) K/uL Lymph # (Auto) 0.2 L (0.6-2.4) K/uL Beadle # (Auto) 0.4 (0.0-0.8) K/uL Eos # (Auto) 0.0 (0.0-0.7) K/uL Baso # (Auto) 0.0 (0.0-0.1) K/uL Nucleated RBC % 0.0 /100WBC Nucleated RBCs # 0 K/uL Lactate 0.9 (0.20-2.00) mmol/L Sodium 127 L (136-148) mmol/L Potassium 4.5 (3.5-5.1) mmol/L Chloride 92 L (98-107) mmol/L Carbon Dioxide 25.7 (21.0-32.0) mmol/L BUN 34 H (7.0-18.0) mg/dL Creatinine 1.4 H (0.8-1.3) mg/dL Est Cr Clr Drug Dosing 39.62 mL/min Estimated GFR (MDRD) 49.0 ml/min Glucose 127 H (74-106) mg/dL Calcium 8.3 L (8.5-10.1) mg/dL Total Bilirubin 0.4 (0.2-1.0) mg/dL AST 39 H (15-37) IU/L ALT 49 (14-63) IU/L Alkaline Phosphatase 94 (46-116) U/L Total Protein 5.7 L (6.4-8.2) g/dL Albumin 1.9 L (3.4-5.0) g/dL Globulin 3.8 (2.6-4.0) g/dL Albumin/Globulin Ratio 0.5 L (0.9-1.6) Urine Color Urine Appearance Urine pH (5.0-8.0) Ur Specific Hamilton (1.001-1.035) Urine Protein (NEGATIVE) mg/dL Urine Glucose (UA) (NEGATIVE) mg/dL Urine Ketones (NEGATIVE) mg/dL Urine Occult Blood (NEGATIVE) Urine Nitrite (NEGATIVE) Urine Bilirubin (NEGATIVE) Urine Ictotest Urine Urobilinogen (<2.0) EU/dL Ur Leukocyte Esterase (NEGATIVE) Urine RBC (0-2/HPF) Urine WBC (0-5/HPF) Ur Epithelial Cells (NONE-FEW) Urine Bacteria (NEGATIVE) Urinalysis Comment Blood Type Antibody Screen Crossmatch 12/23/18 12/23/18 12/24/18 Range/Units 21:41 22:20 06:05 WBC 2.65 L (4.0-11.0) K/uL RBC 2.98 L (4.50-5.90) M/uL Hgb 9.0 L (13.0-17.0) g/dL Hct 26.9 L (38.0-50.0) % MCV 90.3 (80.0-98.0) fL MCH 30.2 (27.0-32.0) pg MCHC 33.5 (31.0-37.0) g/dL RDW Std Deviation 48.9 (28.0-62.0) fl RDW Coeff of Jeanie 15 (11.0-15.0) % Plt Count 294 (150-400) K/uL MPV 8.80 (7.40-12.00) fL Neut % (Auto) 77.4 (48.0-80.0) % Lymph % (Auto) 8.3 L (16.0-40.0) % Beadle % (Auto) 14.3 (0.0-15.0) % Eos % (Auto) 0.0 (0.0-7.0) % Baso % (Auto) 0.0 (0.0-1.5) % Neut # (Auto) 2.1 (1.4-5.7) K/uL Lymph # (Auto) 0.2 L (0.6-2.4) K/uL Beadle # (Auto) 0.4 (0.0-0.8) K/uL Eos # (Auto) 0.0 (0.0-0.7) K/uL Baso # (Auto) 0.0 (0.0-0.1) K/uL Nucleated RBC % 0.0 /100WBC Nucleated RBCs # 0 K/uL Lactate (0.20-2.00) mmol/L Sodium (136-148) mmol/L Potassium (3.5-5.1) mmol/L Chloride (98-107) mmol/L Carbon Dioxide (21.0-32.0) mmol/L BUN (7.0-18.0) mg/dL Creatinine (0.8-1.3) mg/dL Est Cr Clr Drug Dosing mL/min Estimated GFR (MDRD) ml/min Glucose (74-106) mg/dL Calcium (8.5-10.1) mg/dL Total Bilirubin (0.2-1.0) mg/dL AST (15-37) IU/L ALT (14-63) IU/L Alkaline Phosphatase (46-116) U/L Total Protein (6.4-8.2) g/dL Albumin (3.4-5.0) g/dL Globulin (2.6-4.0) g/dL Albumin/Globulin Ratio (0.9-1.6) Urine Color RED Urine Appearance CLOUDY Urine pH 7.0 (5.0-8.0) Ur Specific Hamilton 1.015 (1.001-1.035) Urine Protein >=300 H (NEGATIVE) mg/dL Urine Glucose (UA) NEGATIVE (NEGATIVE) mg/dL Urine Ketones NEGATIVE (NEGATIVE) mg/dL Urine Occult Blood LARGE H (NEGATIVE) Urine Nitrite POSITIVE H (NEGATIVE) Urine Bilirubin SMALL H (NEGATIVE) Urine Ictotest NEGATIVE Urine Urobilinogen 1.0 (<2.0) EU/dL Ur Leukocyte Esterase MODERATE H (NEGATIVE) Urine RBC TOO NUMEROUS TO CT (0-2/HPF) Urine WBC 45-50 (0-5/HPF) Ur Epithelial Cells RARE (NONE-FEW) Urine Bacteria RARE (NEGATIVE) Urinalysis Comment Blood Type O POSITIVE Antibody Screen NEGATIVE Crossmatch See Detail 12/24/18 Range/Units 06:05 WBC (4.0-11.0) K/uL RBC (4.50-5.90) M/uL Hgb (13.0-17.0) g/dL Hct (38.0-50.0) % MCV (80.0-98.0) fL MCH (27.0-32.0) pg MCHC (31.0-37.0) g/dL RDW Std Deviation (28.0-62.0) fl RDW Coeff of Jeanie (11.0-15.0) % Plt Count (150-400) K/uL MPV (7.40-12.00) fL Neut % (Auto) (48.0-80.0) % Lymph % (Auto) (16.0-40.0) % Beadle % (Auto) (0.0-15.0) % Eos % (Auto) (0.0-7.0) % Baso % (Auto) (0.0-1.5) % Neut # (Auto) (1.4-5.7) K/uL Lymph # (Auto) (0.6-2.4) K/uL Beadle # (Auto) (0.0-0.8) K/uL Eos # (Auto) (0.0-0.7) K/uL Baso # (Auto) (0.0-0.1) K/uL Nucleated RBC % /100WBC Nucleated RBCs # K/uL Lactate (0.20-2.00) mmol/L Sodium 128 L (136-148) mmol/L Potassium 4.4 (3.5-5.1) mmol/L Chloride 93 L (98-107) mmol/L Carbon Dioxide 25.4 (21.0-32.0) mmol/L BUN 31 H (7.0-18.0) mg/dL Creatinine 1.4 H (0.8-1.3) mg/dL Est Cr Clr Drug Dosing 38.07 mL/min Estimated GFR (MDRD) 49.0 ml/min Glucose 111 H (74-106) mg/dL Calcium 8.1 L (8.5-10.1) mg/dL Total Bilirubin (0.2-1.0) mg/dL AST (15-37) IU/L ALT (14-63) IU/L Alkaline Phosphatase (46-116) U/L Total Protein (6.4-8.2) g/dL Albumin (3.4-5.0) g/dL Globulin (2.6-4.0) g/dL Albumin/Globulin Ratio (0.9-1.6) Urine Color Urine Appearance Urine pH (5.0-8.0) Ur Specific [place] (1.001-1.035) Urine Protein (NEGATIVE) mg/dL Urine Glucose (UA) (NEGATIVE) mg/dL Urine Ketones (NEGATIVE) mg/dL Urine Occult Blood (NEGATIVE) Urine Nitrite (NEGATIVE) Urine Bilirubin (NEGATIVE) Urine Ictotest Urine Urobilinogen (<2.0) EU/dL Ur Leukocyte Esterase (NEGATIVE) Urine RBC (0-2/HPF) Urine WBC (0-5/HPF) Ur Epithelial Cells (NONE-FEW) Urine Bacteria (NEGATIVE) Urinalysis Comment Blood Type Antibody Screen Crossmatch Result Diagrams: 12/24/18 06:05 12/24/18 06:05 Orders Last 24hrs: Active Orders 24 hr Category Date Time Status Admission Status [Patient Status] [ADT] Stat ADT 12/23/18 22:32 Active Oxygen Therapy [RC] PRN Care 12/24/18 08:47 Active Telemetry Monitoring [Cardiac Monitoring] [RC] Q8H Care 12/24/18 01:19 Active Up With Assistance [RC] ASDIRECTED Care 12/24/18 08:47 Active VTE/DVT Education [RC] PER UNIT ROUTINE Care 12/24/18 08:47 Active Vital Signs [RC] Q4H Care 12/24/18 08:47 Active Regular Diet [DIET] Diet 12/24/18 Breakfast Active BASIC METABOLIC PANEL,BMP [CHEM] AM Lab 12/25/18 05:11 Ordered CBC WITH AUTO DIFF [HEME] AM Lab 12/25/18 05:11 Ordered CULTURE BLOOD [BC] Stat Lab 12/23/18 21:41 Received CULTURE BLOOD [BC] Stat Lab 12/23/18 22:02 Received CULTURE URINE [RM] Stat Lab 12/23/18 22:20 Received RED BLOOD CELLS LP [BBK] Stat Lab 12/23/18 21:41 Results TYPE AND SCREEN [BBK] Stat Lab 12/23/18 21:41 Results Acetaminophen [Tylenol] Med 12/24/18 00:09 Active 650 mg PO Q6H PRN Belladonna/Opium [B & O Supprettes No. 15A] Med 12/24/18 08:45 Active 1 supp RECTAL Q6HR PRN Heparin Sodium Med 12/24/18 09:00 Active 5,000 units SUBCUT Q8H Lactated Ringers [Ringers, Lactated] 1,000 ml Med 12/24/18 07:15 Active IV ASDIRECTED Ondansetron [Zofran ODT] Med 12/24/18 08:47 Active 4 mg PO Q4H PRN Ondansetron [Zofran] Med 12/24/18 08:47 Active 4 mg IVPUSH Q4H PRN Patient's Own Medication [Ptom] Med 12/24/18 09:00 Active 1 each PO DAILY Patient's Own Medication [Ptom] Med 12/24/18 09:00 Active 1 each PO DAILY Piperacillin/Tazobactam [Zosyn] 2.25 gm Med 12/24/18 09:30 Active Sodium Chloride 0.9% [Normal Saline] 50 ml IV Q8H Sodium Chloride 0.9% [Normal Saline] 1,000 ml Med 12/23/18 21:45 Active IV STAT Sodium Chloride 0.9% [Saline Flush] Med 12/24/18 00:09 Active 10 ml FLUSH ASDIRECTED PRN Sodium Chloride 0.9% [Saline Flush] Med 12/24/18 00:09 Active 2.5 ml FLUSH ASDIRECTED PRN oxyCODONE Med 12/24/18 00:10 Active 5 mg PO Q4H PRN Blood Culture x2 Reflex Set [OM.PC] Stat Ot 12/23/18 21:20 Ordered Convert IV to Saline Lock [OM.PC] Routine Ot 12/24/18 00:09 Ordered Transfuse RBC [Transfuse Red Blood Cells] [COMM] Stat Ot 12/23/18 22:33 Ordered Resuscitation Status Routine Resus Stat 12/24/18 08:47 Ordered Medication Orders Acetaminophen (Tylenol) 650 mg PO Q6H PRN PRN Reason: pain or fever Last Admin: 12/24/18 07:50 Dose: 650 mg Belladonna Alkaloids/Opium (B & O Supprettes No. 15a) 1 supp RECTAL Q6HR PRN PRN Reason: Spasms Heparin Sodium (Porcine) (Heparin Sodium) 5,000 units SUBCUT Q8H [facility] Last Admin: 12/24/18 09:49 Dose: 5,000 units Sodium Chloride (Normal Saline) 1,000 mls @ 125 mls/hr IV STAT [facility] Last Infusion: 12/23/18 22:35 Dose: 999 mls/hr Admin: 12/23/18 21:51 Dose: 125 mls/hr Lactated Ringer's (Ringers, Lactated) 1,000 mls @ 125 mls/hr IV ASDIRECTED [facility] Last Admin: 12/24/18 08:13 Dose: 125 mls/hr Piperacillin Sod/Tazobactam (Sod 2.25 gm/ Sodium Chloride) 50 mls @ 100 mls/hr IV Q8H [facility] Last Admin: 12/24/18 09:50 Dose: 100 mls/hr Ondansetron HCl (Zofran) 4 mg IVPUSH Q4H PRN PRN Reason: Nausea Ondansetron HCl (Zofran Odt) 4 mg PO Q4H PRN PRN Reason: nausea, able to take PO Oxycodone HCl (Oxycodone) 5 mg PO Q4H PRN PRN Reason: Pain (moderate 4-6) Last Admin: 12/24/18 07:49 Dose: 5 mg Fesoterodine Fumarate [Toviaz] 8 Mg 1 each PO DAILY [facility] L.Acidoph,Paracasei, B.Lactis [Probiotic ] 1 each PO DAILY [facility] Sodium Chloride (Saline Flush) 10 ml FLUSH ASDIRECTED PRN PRN Reason: Keep Vein Open Sodium Chloride (Saline Flush) 2.5 ml FLUSH ASDIRECTED PRN PRN Reason: Keep Vein Open
[2018-12-24] MEDS: Piperacillin/Tazobactam 2.25 GM in Sodium Chloride 0.9% 50 ML IV SCH ×2 (09:50→17:29)
[2018-12-24] MEDS: Fesoterodine Fumarate [Toviaz] 8 MG PO SCH (12:09)
[2018-12-24] MEDS: L.Acidoph,Paracasei, B.Lactis [Probiotic] PO SCH (12:21)
[2018-12-24] MEDS: Sodium Chloride 0.9% 1,000 ML IV ONE ×2 (13:19→14:38)
[2018-12-24] MEDS: Belladonna Alkaloids/Opium 16.2-30 MG Supp RECTAL PRN ×2 (13:20→21:15)
[2018-12-24] MEDS: Pantoprazole 40 MG in Sodium Chloride 0.9% 10 ML IV SCH (18:30)
[2018-12-25] MEDS: Acetaminophen 325 MG Tab PO PRN ×2 (00:42→16:12)
[2018-12-25] MEDS: Piperacillin/Tazobactam 2.25 GM in Sodium Chloride 0.9% 50 ML IV SCH ×2 (00:42→09:29)
[2018-12-25] MEDS: Sodium Chloride 0.9% 1,000 ML IV SCH ×2 (03:45→18:21)
[2018-12-25 06:32] LABS: CARBON DIOXIDE,CO2 24.5 mmol/L (21.0-32.0); POTASSIUM,K 3.9 mmol/L (3.5-5.1)
[2018-12-25] MEDS: Fesoterodine Fumarate [Toviaz] 8 MG PO SCH (09:36)
[2018-12-25] MEDS: L.Acidoph,Paracasei, B.Lactis [Probiotic] PO SCH (09:36)
--- NOTE | 2018-12-25 10:04 | PCM.PN ---
<Chivo Franco - Last Filed: 12/25/18 09:58> - General Info Date of Service: 12/25/18 Subjective Update: Fever x1 overnight. Patient states he feels better. Poor appetite. Denies any chest pain, dyspnea, abdominal pain, dysuria, diarrhea. No blood in stool. - Patient Data Vitals - Most Recent: Last Vital Signs Temp 36.2 C 12/25/18 07:48 Pulse 77 12/25/18 07:48 Resp 17 12/25/18 07:48 BP 108/57 L 12/25/18 07:48 Pulse Ox 96 12/25/18 07:48 Weight - Most Recent: 61.887 kg I&O - Last 24 Hours: Intake & Output 12/24/18 12/25/18 12/25/18 22:59 06:59 14:59 Intake Total 1550 1680 Output Total 1050 825 Balance 500 855 Lab Results Last 24 Hours: Laboratory Results - last 24 hr 12/23/18 12/25/18 12/25/18 Range/Units 21:41 06:03 06:03 WBC 2.81 L (4.0-11.0) K/uL RBC 2.50 L (4.50-5.90) M/uL Hgb 7.7 L (13.0-17.0) g/dL Hct 22.9 L (38.0-50.0) % MCV 91.6 (80.0-98.0) fL MCH 30.8 (27.0-32.0) pg MCHC 33.6 (31.0-37.0) g/dL RDW Std Deviation 52.6 (28.0-62.0) fl RDW Coeff of Jeanie 16 H (11.0-15.0) % Plt Count 266 (150-400) K/uL MPV 8.70 (7.40-12.00) fL Add Manual Diff YES Neutrophils % (Manual) 70 (48.0-80.0) % Band Neutrophils % 14 % Lymphocytes % (Manual) 7 L (16.0-40.0) % Monocytes % (Manual) 9 (0.0-15.0) % Nucleated RBC % 0.0 /100WBC Absolute Seg Neuts 2.0 (1.4-5.7) Band Neutrophils # 0.4 Lymphocytes # (Manual) 0.2 L (0.6-2.4) Monocytes # (Manual) 0.3 (0.0-0.8) Nucleated RBCs # 0 K/uL Sodium 131 L (136-148) mmol/L Potassium 3.9 (3.5-5.1) mmol/L Chloride 99 (98-107) mmol/L Carbon Dioxide 24.5 (21.0-32.0) mmol/L BUN 26 H (7.0-18.0) mg/dL Creatinine 1.2 (0.8-1.3) mg/dL Est Cr Clr Drug Dosing 44.41 mL/min Estimated GFR (MDRD) 58.6 ml/min Glucose 94 (74-106) mg/dL Calcium 7.6 L (8.5-10.1) mg/dL Blood Type O POSITIVE Antibody Screen NEGATIVE Crossmatch See Detail [facility] Results Last 24 Hours: Microbiology 12/23/18 22:20 Urine Culture - Final Urine, Clean Catch Klebsiella Pneumoniae 12/23/18 22:02 Aerobic Blood Culture - Preliminary Blood - Venous - Lab Draw NO GROWTH AFTER 1 DAY Anaerobic Blood Culture - Preliminary NO GROWTH AFTER 1 DAY 12/23/18 21:41 Aerobic Blood Culture - Preliminary Blood - Venous NO GROWTH AFTER 1 DAY Anaerobic Blood Culture - Preliminary NO GROWTH AFTER 1 DAY Med Orders - Current: Current Medications Acetaminophen (Tylenol) 650 mg PO Q6H PRN PRN Reason: pain or fever Last Admin: 12/25/18 00:42 Dose: 650 mg Belladonna Alkaloids/Opium (B & O Supprettes No. 15a) 1 supp RECTAL Q6HR PRN PRN Reason: Spasms Last Admin: 12/24/18 21:15 Dose: 1 supp Piperacillin Sod/Tazobactam (Sod 2.25 gm/ Sodium Chloride) 50 mls @ 100 mls/hr IV Q8H [facility] Last Admin: 12/25/18 09:29 Dose: 100 mls/hr Pantoprazole Sodium 40 mg/ (Sodium Chloride) 10 mls @ 300 mls/hr IV Q24H [facility] Last Admin: 12/24/18 18:30 Dose: 300 mls/hr Sodium Chloride (Normal Saline) 1,000 mls @ 75 mls/hr IV STAT [facility] Last Admin: 12/25/18 03:45 Dose: 75 mls/hr Ondansetron HCl (Zofran) 4 mg IVPUSH Q4H PRN PRN Reason: Nausea Ondansetron HCl (Zofran Odt) 4 mg PO Q4H PRN PRN Reason: nausea, able to take PO Oxycodone HCl (Oxycodone) 5 mg PO Q4H PRN PRN Reason: Pain (moderate 4-6) Last Admin: 12/24/18 21:15 Dose: 5 mg Fesoterodine Fumarate [Toviaz] 8 Mg 1 each PO DAILY [facility] Last Admin: 12/25/18 09:36 Dose: 1 each L.Acidoph,Paracasei, B.Lactis [Probiotic ] 1 each PO DAILY [facility] Last Admin: 12/25/18 09:36 Dose: 1 each Sodium Chloride (Saline Flush) 10 ml FLUSH ASDIRECTED PRN PRN Reason: Keep Vein Open Sodium Chloride (Saline Flush) 2.5 ml FLUSH ASDIRECTED PRN PRN Reason: Keep Vein Open Discontinued Medications Acetaminophen (Tylenol) 650 mg PO NOW ONE Stop: 12/23/18 21:47 Last Admin: 12/23/18 21:49 Dose: 650 mg Acetaminophen (Tylenol) Confirm Administered Dose 650 mg .ROUTE .STK-MED ONE Stop: 12/23/18 21:48 Last Admin: 12/23/18 22:04 Dose: Not Given Heparin Sodium (Porcine) (Heparin Sodium) 5,000 units SUBCUT Q8H [facility] Last Admin: 12/24/18 09:49 Dose: 5,000 units Sodium Chloride (Normal Saline) 1,000 mls @ 125 mls/hr IV STAT [facility] Last Infusion: 12/23/18 22:35 Dose: 999 mls/hr Piperacillin Sod/Tazobactam (Sod 3.375 gm/ Sodium Chloride) 50 mls @ 100 mls/ hr IV ONETIME ONE Stop: 12/23/18 22:36 Last Admin: 12/23/18 22:53 Dose: Not Given Vancomycin HCl 1 gm/ Sodium (Chloride) 250 mls @ 166 mls/hr IV ONETIME ONE Stop: 12/23/18 23:37 Last Admin: 12/23/18 22:26 Dose: 166 mls/hr Piperacillin Sod/Tazobactam (Sod 2.25 gm/ Sodium Chloride) 50 mls @ 100 mls/hr IV ONETIME ONE Stop: 12/23/18 22:44 Last Admin: 12/23/18 22:26 Dose: 100 mls/hr Sodium Chloride (Normal Saline) Confirm Administered Dose 50 mls @ as directed .ROUTE .STK-MED ONE Stop: 12/23/18 22:19 Last Admin: 12/23/18 22:53 Dose: Not Given Lactated Ringer's (Ringers, Lactated) 1,000 mls @ 125 mls/hr IV ASDIRECTED [facility] Last Admin: 12/24/18 08:13 Dose: 125 mls/hr Sodium Chloride (Normal Saline) 1,000 mls @ 100 mls/hr IV STAT ONE Stop: 12/24/18 22:38 Last Admin: 12/24/18 14:38 Dose: 100 mls/hr Piperacillin Sod/Tazobactam Sod (Zosyn) Confirm Administered Dose 2.25 gm .ROUTE .STK-MED ONE Stop: 12/23/18 22:17 Last Admin: 12/23/18 22:53 Dose: Not Given - Exam General: Alert, Oriented, Cooperative, No Acute Distress Lungs: Clear to Auscultation, Normal Respiratory Effort. No: Crackles, Wheezing Cardiovascular: Regular Rate, Regular Rhythm GI/Abdominal Exam: Normal Bowel Sounds, Soft, Non-Tender, Other (urine bag filled with gross hematuria.) Extremities: Normal Inspection, No Pedal Edema - Problem List Review Problem List Initiated/Reviewed/Updated: Yes - My Orders Last 24 Hours: My Active Orders 12/25/18 15:00 CBC W/O DIFF,HEMOGRAM [HEME] Routine - Plan Plan:: A: 1. Fever 2. Pancytopenia 3. Klebsiella UTI 4. Hx bladder cancer, osteosarcoma P: 1. Will switch to ceftriaxone due to klebsiella UTI. Will recheck H/H later this afternoon and transfuse if Hg<7. Patient is bleeding from his bladder since there's gross hematuria in cath bag. Overall, feeling better but poor appetite. Dr. Pearl has spoken to patient and family about possibility of hospice. Patient would like more information about hospice. Hospice consult has been placed. Dispo: 1-2 days <Tino Pearl - Last Filed: 12/25/18 11:06> - General Info Admission Dx/Problem (Free Text): I have examined the patient independently of medical receptionist biller, Dr. Xena MD. I have discussed the case with him. I have reviewed and agree with the examination and plan as outlined by him. Please see orders. Discussed hospice care with patient and family. - Patient Data Vitals - Most Recent: Last Vital Signs Temp 36.2 C 12/25/18 07:48 Pulse 77 12/25/18 07:48 Resp 17 12/25/18 07:48 BP 108/57 L 12/25/18 07:48 Pulse Ox 96 12/25/18 07:48 I&O - Last 24 Hours: Intake & Output 12/24/18 12/25/18 12/25/18 22:59 06:59 14:59 Intake Total 1550 1680 Output Total 1050 825 Balance 500 855 Lab Results Last 24 Hours: Laboratory Results - last 24 hr 12/23/18 12/25/18 12/25/18 Range/Units 21:41 06:03 06:03 WBC 2.81 L (4.0-11.0) K/uL RBC 2.50 L (4.50-5.90) M/uL Hgb 7.7 L (13.0-17.0) g/dL Hct 22.9 L (38.0-50.0) % MCV 91.6 (80.0-98.0) fL MCH 30.8 (27.0-32.0) pg MCHC 33.6 (31.0-37.0) g/dL RDW Std Deviation 52.6 (28.0-62.0) fl RDW Coeff of Jeanie 16 H (11.0-15.0) % Plt Count 266 (150-400) K/uL MPV 8.70 (7.40-12.00) fL Add Manual Diff YES Neutrophils % (Manual) 70 (48.0-80.0) % Band Neutrophils % 14 % Lymphocytes % (Manual) 7 L (16.0-40.0) % Monocytes % (Manual) 9 (0.0-15.0) % Nucleated RBC % 0.0 /100WBC Absolute Seg Neuts 2.0 (1.4-5.7) Band Neutrophils # 0.4 Lymphocytes # (Manual) 0.2 L (0.6-2.4) Monocytes # (Manual) 0.3 (0.0-0.8) Nucleated RBCs # 0 K/uL Sodium 131 L (136-148) mmol/L Potassium 3.9 (3.5-5.1) mmol/L Chloride 99 (98-107) mmol/L Carbon Dioxide 24.5 (21.0-32.0) mmol/L BUN 26 H (7.0-18.0) mg/dL Creatinine 1.2 (0.8-1.3) mg/dL Est Cr Clr Drug Dosing 44.41 mL/min Estimated GFR (MDRD) 58.6 ml/min Glucose 94 (74-106) mg/dL Calcium 7.6 L (8.5-10.1) mg/dL Blood Type O POSITIVE Antibody Screen NEGATIVE Crossmatch See Detail [facility] Results Last 24 Hours: Microbiology 12/23/18 22:20 Urine Culture - Final Urine, Clean Catch Klebsiella Pneumoniae 12/23/18 22:02 Aerobic Blood Culture - Preliminary Blood - Venous - Lab Draw NO GROWTH AFTER 1 DAY Anaerobic Blood Culture - Preliminary NO GROWTH AFTER 1 DAY 12/23/18 21:41 Aerobic Blood Culture - Preliminary Blood - Venous NO GROWTH AFTER 1 DAY Anaerobic Blood Culture - Preliminary NO GROWTH AFTER 1 DAY Med Orders - Current: Current Medications Acetaminophen (Tylenol) 650 mg PO Q6H PRN PRN Reason: pain or fever Last Admin: 12/25/18 00:42 Dose: 650 mg Belladonna Alkaloids/Opium (B & O Supprettes No. 15a) 1 supp RECTAL Q6HR PRN PRN Reason: Spasms Last Admin: 12/24/18 21:15 Dose: 1 supp Pantoprazole Sodium 40 mg/ (Sodium Chloride) 10 mls @ 300 mls/hr IV Q24H [facility] Last Admin: 12/24/18 18:30 Dose: 300 mls/hr Sodium Chloride (Normal Saline) 1,000 mls @ 75 mls/hr IV STAT [facility] Last Admin: 12/25/18 03:45 Dose: 75 mls/hr Ceftriaxone Sodium/Dextrose 1 (gm/ Premix) 50 mls @ 100 mls/hr IV Q24H [facility] Ondansetron HCl (Zofran) 4 mg IVPUSH Q4H PRN PRN Reason: Nausea Ondansetron HCl (Zofran Odt) 4 mg PO Q4H PRN PRN Reason: nausea, able to take PO Oxycodone HCl (Oxycodone) 5 mg PO Q4H PRN PRN Reason: Pain (moderate 4-6) Last Admin: 12/24/18 21:15 Dose: 5 mg Fesoterodine Fumarate [Toviaz] 8 Mg 1 each PO DAILY [facility] Last Admin: 12/25/18 09:36 Dose: 1 each L.Acidoph,Paracasei, B.Lactis [Probiotic ] 1 each PO DAILY [facility] Last Admin: 12/25/18 09:36 Dose: 1 each Sodium Chloride (Saline Flush) 10 ml FLUSH ASDIRECTED PRN PRN Reason: Keep Vein Open Sodium Chloride (Saline Flush) 2.5 ml FLUSH ASDIRECTED PRN PRN Reason: Keep Vein Open Discontinued Medications Acetaminophen (Tylenol) 650 mg PO NOW ONE Stop: 12/23/18 21:47 Last Admin: 12/23/18 21:49 Dose: 650 mg Acetaminophen (Tylenol) Confirm Administered Dose 650 mg .ROUTE .STK-MED ONE Stop: 12/23/18 21:48 Last Admin: 12/23/18 22:04 Dose: Not Given Heparin Sodium (Porcine) (Heparin Sodium) 5,000 units SUBCUT Q8H [facility] Last Admin: 12/24/18 09:49 Dose: 5,000 units Sodium Chloride (Normal Saline) 1,000 mls @ 125 mls/hr IV STAT [facility] Last Infusion: 12/23/18 22:35 Dose: 999 mls/hr Piperacillin Sod/Tazobactam (Sod 3.375 gm/ Sodium Chloride) 50 mls @ 100 mls/ hr IV ONETIME ONE Stop: 12/23/18 22:36 Last Admin: 12/23/18 22:53 Dose: Not Given Vancomycin HCl 1 gm/ Sodium (Chloride) 250 mls @ 166 mls/hr IV ONETIME ONE Stop: 12/23/18 23:37 Last Admin: 12/23/18 22:26 Dose: 166 mls/hr Piperacillin Sod/Tazobactam (Sod 2.25 gm/ Sodium Chloride) 50 mls @ 100 mls/hr IV ONETIME ONE Stop: 12/23/18 22:44 Last Admin: 12/23/18 22:26 Dose: 100 mls/hr Sodium Chloride (Normal Saline) Confirm Administered Dose 50 mls @ as directed .ROUTE .STK-MED ONE Stop: 12/23/18 22:19 Last Admin: 12/23/18 22:53 Dose: Not Given Lactated Ringer's (Ringers, Lactated) 1,000 mls @ 125 mls/hr IV ASDIRECTED [facility] Last Admin: 12/24/18 08:13 Dose: 125 mls/hr Piperacillin Sod/Tazobactam (Sod 2.25 gm/ Sodium Chloride) 50 mls @ 100 mls/hr IV Q8H [facility] Last Admin: 12/25/18 09:29 Dose: 100 mls/hr Sodium Chloride (Normal Saline) 1,000 mls @ 100 mls/hr IV STAT ONE Stop: 12/24/18 22:38 Last Admin: 12/24/18 14:38 Dose: 100 mls/hr Piperacillin Sod/Tazobactam Sod (Zosyn) Confirm Administered Dose 2.25 gm .ROUTE .STK-MED ONE Stop: 12/23/18 22:17 Last Admin: 12/23/18 22:53 Dose: Not Given - My Orders Last 24 Hours: My Active Orders 12/24/18 18:30 Pantoprazole [ProTONIX IV] 40 mg Sodium Chloride 0.9% [Normal Saline] 10 ml IV Q24H
[2018-12-25] MEDS: Belladonna Alkaloids/Opium 16.2-30 MG Supp RECTAL PRN (14:37)
[2018-12-25] MEDS: oxyCODONE 5 MG Tab PO PRN ×2 (14:44→20:30)
[2018-12-25] MEDS: cefTRIAXone 1 GM in Premix Bag 1 BAG IV SCH (16:15)
[2018-12-25] MEDS ORDERED: Ibuprofen 400 MG Tab PO PRN (17:33)
[2018-12-25] MEDS ORDERED: Acetaminophen 500 MG Tab PO PRN (17:33)
[2018-12-25] MEDS: Pantoprazole 40 MG in Sodium Chloride 0.9% 10 ML IV SCH (18:20)
[2018-12-26] MEDS: oxyCODONE 5 MG Tab PO PRN ×4 (02:13→17:43)
[2018-12-26] MEDS: Belladonna Alkaloids/Opium 16.2-30 MG Supp RECTAL PRN ×3 (05:06→20:15)
[2018-12-26 05:35] LABS: BLOOD UREA NITROGEN,BUN 25 mg/dL (7.0-18.0); CARBON DIOXIDE,CO2 23.7 mmol/L (21.0-32.0); CHLORIDE,CL 101 mmol/L (98-107); GLUCOSE RANDOM 104 mg/dL (74-106); POTASSIUM,K 3.7 mmol/L (3.5-5.1); SODIUM,NA 134 mmol/L (136-148)
[2018-12-26] MEDS: Sodium Chloride 0.9% 1,000 ML IV SCH ×2 (07:19→20:00)
[2018-12-26] MEDS: L.Acidoph,Paracasei, B.Lactis [Probiotic] PO SCH (08:24)
[2018-12-26] MEDS: Fesoterodine Fumarate [Toviaz] 8 MG PO SCH (08:33)
--- NOTE | 2018-12-26 08:34 | PCM.PN ---
<Olamide Lawson M - Last Filed: 12/26/18 09:41> - General Info Date of Service: 12/26/18 Admission Dx/Problem (Free Text): Anemia, UTI Subjective Update: Sitting in bed, attempting to eat breakfast. Complaining of bladder spasms and pain currently. No chest pain or SOB. Discussed some about Hospice would like to talk with Hospice and have their son at the meeting as well. Functional Status: Reports: Tolerating Diet. Denies: Pain Controlled, Ambulating - Review of Systems General: Reports: Malaise Pulmonary: Denies: Shortness of Breath Cardiovascular: Denies: Chest Pain Gastrointestinal: Reports: Abdominal Pain (bladder spasms, R groin) Musculoskeletal: Reports: No Symptoms Skin: Reports: No Symptoms Neurological: Reports: No Symptoms Psychiatric: Reports: No Symptoms - Patient Data Vitals - Most Recent: Last Vital Signs Temp 97.1 F 12/26/18 04:00 Pulse 82 12/26/18 04:00 Resp 20 12/26/18 04:00 BP 106/60 12/26/18 04:00 Pulse Ox 95 12/26/18 04:00 Weight - Most Recent: 61.887 kg I&O - Last 24 Hours: Intake & Output 12/25/18 12/26/18 12/26/18 22:59 06:59 14:59 Intake Total 1503 2000 Output Total 450 1300 Balance 1053 700 Lab Results Last 24 Hours: Laboratory Results - last 24 hr 12/25/18 12/26/18 12/26/18 Range/Units 15:05 05:10 05:10 WBC 3.26 L 3.14 L (4.0-11.0) K/uL RBC 2.83 L 2.84 L (4.50-5.90) M/uL Hgb 8.6 L 8.8 L (13.0-17.0) g/dL Hct 25.9 L 26.1 L (38.0-50.0) % MCV 91.5 91.9 (80.0-98.0) fL MCH 30.4 31.0 (27.0-32.0) pg MCHC 33.2 33.7 (31.0-37.0) g/dL RDW Std Deviation 52.6 52.6 (28.0-62.0) fl RDW Coeff of Jeanie 16 H 15 (11.0-15.0) % Plt Count 316 326 (150-400) K/uL MPV 8.90 8.90 (7.40-12.00) fL Neut % (Auto) 76.4 (48.0-80.0) % Lymph % (Auto) 9.6 L (16.0-40.0) % Roane % (Auto) 13.7 (0.0-15.0) % Eos % (Auto) 0.3 (0.0-7.0) % Baso % (Auto) 0.0 (0.0-1.5) % Neut # (Auto) 2.4 (1.4-5.7) K/uL Lymph # (Auto) 0.3 L (0.6-2.4) K/uL Roane # (Auto) 0.4 (0.0-0.8) K/uL Eos # (Auto) 0.0 (0.0-0.7) K/uL Baso # (Auto) 0.0 (0.0-0.1) K/uL Nucleated RBC % 0.0 0.0 /100WBC Nucleated RBCs # 0 0 K/uL Sodium 134 L (136-148) mmol/L Potassium 3.7 (3.5-5.1) mmol/L Chloride 101 (98-107) mmol/L Carbon Dioxide 23.7 (21.0-32.0) mmol/L BUN 25 H (7.0-18.0) mg/dL Creatinine 1.1 (0.8-1.3) mg/dL Est Cr Clr Drug Dosing 48.45 mL/min Estimated GFR (MDRD) > 60.0 ml/min Glucose 104 (74-106) mg/dL Calcium 7.7 L (8.5-10.1) mg/dL Killian Results Last 24 Hours: Microbiology 12/23/18 22:02 Aerobic Blood Culture - Preliminary Blood - Venous - Lab Draw NO GROWTH AFTER 2 DAYS Anaerobic Blood Culture - Preliminary NO GROWTH AFTER 2 DAYS 12/23/18 21:41 Aerobic Blood Culture - Preliminary Blood - Venous NO GROWTH AFTER 2 DAYS Anaerobic Blood Culture - Preliminary NO GROWTH AFTER 2 DAYS 12/23/18 22:20 Urine Culture - Final Urine, Clean Catch Klebsiella Pneumoniae Med Orders - Current: Current Medications Acetaminophen (Tylenol Extra Strength) 1,000 mg PO Q6H PRN PRN Reason: pain or fever Belladonna Alkaloids/Opium (B & O Supprettes No. 15a) 1 supp RECTAL Q6HR PRN PRN Reason: Spasms Last Admin: 12/26/18 05:06 Dose: 1 supp Pantoprazole Sodium 40 mg/ (Sodium Chloride) 10 mls @ 300 mls/hr IV Q24H [facility] Last Admin: 12/25/18 18:20 Dose: 300 mls/hr Sodium Chloride (Normal Saline) 1,000 mls @ 75 mls/hr IV STAT [facility] Last Admin: 12/26/18 07:19 Dose: 75 mls/hr Ceftriaxone Sodium/Dextrose 1 (gm/ Premix) 50 mls @ 100 mls/hr IV Q24H [facility] Last Admin: 12/25/18 16:15 Dose: 100 mls/hr Ibuprofen (Motrin) 400 mg PO Q6H PRN PRN Reason: Pain Last Admin: 12/25/18 18:20 Dose: 400 mg Ondansetron HCl (Zofran) 4 mg IVPUSH Q4H PRN PRN Reason: Nausea Ondansetron HCl (Zofran Odt) 4 mg PO Q4H PRN PRN Reason: nausea, able to take PO Oxycodone HCl (Oxycodone) 5 mg PO Q4H PRN PRN Reason: Pain (moderate 4-6) Last Admin: 12/26/18 08:23 Dose: 5 mg Fesoterodine Fumarate [Toviaz] 8 Mg 1 each PO DAILY [facility] Last Admin: 12/26/18 08:33 Dose: 1 each L.Acidoph,Paracasei, B.Lactis [Probiotic ] 1 each PO DAILY [facility] Last Admin: 12/26/18 08:24 Dose: 1 each Sodium Chloride (Saline Flush) 10 ml FLUSH ASDIRECTED PRN PRN Reason: Keep Vein Open Sodium Chloride (Saline Flush) 2.5 ml FLUSH ASDIRECTED PRN PRN Reason: Keep Vein Open Discontinued Medications Acetaminophen (Tylenol) 650 mg PO NOW ONE Stop: 12/23/18 21:47 Last Admin: 12/23/18 21:49 Dose: 650 mg Acetaminophen (Tylenol) Confirm Administered Dose 650 mg .ROUTE .STK-MED ONE Stop: 12/23/18 21:48 Last Admin: 12/23/18 22:04 Dose: Not Given Acetaminophen (Tylenol) 650 mg PO Q6H PRN PRN Reason: pain or fever Last Admin: 12/25/18 16:12 Dose: 650 mg Heparin Sodium (Porcine) (Heparin Sodium) 5,000 units SUBCUT Q8H [facility] Last Admin: 12/24/18 09:49 Dose: 5,000 units Sodium Chloride (Normal Saline) 1,000 mls @ 125 mls/hr IV STAT [facility] Last Infusion: 12/23/18 22:35 Dose: 999 mls/hr Piperacillin Sod/Tazobactam (Sod 3.375 gm/ Sodium Chloride) 50 mls @ 100 mls/ hr IV ONETIME ONE Stop: 12/23/18 22:36 Last Admin: 12/23/18 22:53 Dose: Not Given Vancomycin HCl 1 gm/ Sodium (Chloride) 250 mls @ 166 mls/hr IV ONETIME ONE Stop: 12/23/18 23:37 Last Admin: 12/23/18 22:26 Dose: 166 mls/hr Piperacillin Sod/Tazobactam (Sod 2.25 gm/ Sodium Chloride) 50 mls @ 100 mls/hr IV ONETIME ONE Stop: 12/23/18 22:44 Last Admin: 12/23/18 22:26 Dose: 100 mls/hr Sodium Chloride (Normal Saline) Confirm Administered Dose 50 mls @ as directed .ROUTE .STK-MED ONE Stop: 12/23/18 22:19 Last Admin: 12/23/18 22:53 Dose: Not Given Lactated Ringer's (Ringers, Lactated) 1,000 mls @ 125 mls/hr IV ASDIRECTED [facility] Last Admin: 12/24/18 08:13 Dose: 125 mls/hr Piperacillin Sod/Tazobactam (Sod 2.25 gm/ Sodium Chloride) 50 mls @ 100 mls/hr IV Q8H [facility] Last Admin: 12/25/18 09:29 Dose: 100 mls/hr Sodium Chloride (Normal Saline) 1,000 mls @ 100 mls/hr IV STAT ONE Stop: 12/24/18 22:38 Last Admin: 12/24/18 14:38 Dose: 100 mls/hr Piperacillin Sod/Tazobactam Sod (Zosyn) Confirm Administered Dose 2.25 gm .ROUTE .STK-MED ONE Stop: 12/23/18 22:17 Last Admin: 12/23/18 22:53 Dose: Not Given - Exam General: Alert, Oriented, Cooperative, Other (pallor) Lungs: Clear to Auscultation, Normal Respiratory Effort Cardiovascular: Regular Rate, Regular Rhythm GI/Abdominal Exam: Normal Bowel Sounds, Soft, Other (suprapubic catheter) Extremities: Normal Inspection, Normal Range of Motion, Non-Tender Neurological: No New Focal Deficit Psy/Mental Status: Alert, Normal Affect, Normal Mood - Problem List & Annotations (1) Pancytopenia SNOMED Code(s): 600337991 Code(s): D61.818 - OTHER PANCYTOPENIA Status: Acute Current Visit: Yes (2) Prostate CA SNOMED Code(s): 906485396 Code(s): C61 - MALIGNANT NEOPLASM OF PROSTATE Status: Chronic Current Visit: Yes (3) UTI (urinary tract infection) SNOMED Code(s): 04302776 Code(s): N39.0 - URINARY TRACT INFECTION, SITE NOT SPECIFIED Status: Acute Current Visit: Yes Qualifiers: Urinary tract infection type: site unspecified Hematuria presence: with hematuria Qualified Code(s): N39.0 - Urinary tract infection, site not specified; R31.9 - Hematuria, unspecified (4) Osteosarcoma SNOMED Code(s): 025782461 Code(s): C41.9 - MALIGNANT NEOPLASM OF BONE AND ARTICULAR CARTILAGE, UNSP Status: Chronic Current Visit: Yes - Problem List Review Problem List Initiated/Reviewed/Updated: Yes - Plan Plan:: This 78 year old male admitted with anemia and fevers. 1. Klebsiella UTI: Continue Ceftriaxone due to klebsiella UTI. Last fever, yesterday evening. Will monitor. 2. Pancytopenia: Anemia stable, hematuria continues. Urine dark in color. 3. Hx prostate cancer, osteosarcoma: Consult to Hospice today, discuss options with Wes and family. Continue B&O suppositories and Oxycodone for pain. VTE prophylaxis: SCDs only due to bleeding Dispo: 1-2 days <Tino Pearl - Last Filed: 12/26/18 13:41> - General Info Admission Dx/Problem (Free Text): I have seen and evaluated the patient independent of Nanette Lawson CNP. I have reviewed and agree with the plan and care as outlined for this patient by her. I have discussed the case with her. Please see orders. - Patient Data Vitals - Most Recent: Last Vital Signs Temp 36.3 C 12/26/18 12:00 Pulse 85 12/26/18 12:00 Resp 20 12/26/18 12:00 BP 125/67 12/26/18 12:00 Pulse Ox 96 12/26/18 12:00 I&O - Last 24 Hours: Intake & Output 12/25/18 12/26/18 12/26/18 22:59 06:59 14:59 Intake Total 1503 2000 Output Total 450 1300 Balance 1053 700 Lab Results Last 24 Hours: Laboratory Results - last 24 hr 12/25/18 12/26/18 12/26/18 Range/Units 15:05 05:10 05:10 WBC 3.26 L 3.14 L (4.0-11.0) K/uL RBC 2.83 L 2.84 L (4.50-5.90) M/uL Hgb 8.6 L 8.8 L (13.0-17.0) g/dL Hct 25.9 L 26.1 L (38.0-50.0) % MCV 91.5 91.9 (80.0-98.0) fL MCH 30.4 31.0 (27.0-32.0) pg MCHC 33.2 33.7 (31.0-37.0) g/dL RDW Std Deviation 52.6 52.6 (28.0-62.0) fl RDW Coeff of Jeanie 16 H 15 (11.0-15.0) % Plt Count 316 326 (150-400) K/uL MPV 8.90 8.90 (7.40-12.00) fL Neut % (Auto) 76.4 (48.0-80.0) % Lymph % (Auto) 9.6 L (16.0-40.0) % Roane % (Auto) 13.7 (0.0-15.0) % Eos % (Auto) 0.3 (0.0-7.0) % Baso % (Auto) 0.0 (0.0-1.5) % Neut # (Auto) 2.4 (1.4-5.7) K/uL Lymph # (Auto) 0.3 L (0.6-2.4) K/uL Roane # (Auto) 0.4 (0.0-0.8) K/uL Eos # (Auto) 0.0 (0.0-0.7) K/uL Baso # (Auto) 0.0 (0.0-0.1) K/uL Nucleated RBC % 0.0 0.0 /100WBC Nucleated RBCs # 0 0 K/uL Sodium 134 L (136-148) mmol/L Potassium 3.7 (3.5-5.1) mmol/L Chloride 101 (98-107) mmol/L Carbon Dioxide 23.7 (21.0-32.0) mmol/L BUN 25 H (7.0-18.0) mg/dL Creatinine 1.1 (0.8-1.3) mg/dL Est Cr Clr Drug Dosing 48.45 mL/min Estimated GFR (MDRD) > 60.0 ml/min Glucose 104 (74-106) mg/dL Calcium 7.7 L (8.5-10.1) mg/dL Killian Results Last 24 Hours: Microbiology 12/23/18 22:02 Aerobic Blood Culture - Preliminary Blood - Venous - Lab Draw NO GROWTH AFTER 2 DAYS Anaerobic Blood Culture - Preliminary NO GROWTH AFTER 2 DAYS 12/23/18 21:41 Aerobic Blood Culture - Preliminary Blood - Venous NO GROWTH AFTER 2 DAYS Anaerobic Blood Culture - Preliminary NO GROWTH AFTER 2 DAYS Med Orders - Current: Current Medications Acetaminophen (Tylenol Extra Strength) 1,000 mg PO Q6H PRN PRN Reason: pain or fever Belladonna Alkaloids/Opium (B & O Supprettes No. 15a) 1 supp RECTAL Q6HR PRN PRN Reason: Spasms Last Admin: 12/26/18 12:35 Dose: 1 supp Pantoprazole Sodium 40 mg/ (Sodium Chloride) 10 mls @ 300 mls/hr IV Q24H [facility] Last Admin: 12/25/18 18:20 Dose: 300 mls/hr Sodium Chloride (Normal Saline) 1,000 mls @ 75 mls/hr IV STAT [facility] Last Admin: 12/26/18 07:19 Dose: 75 mls/hr Ceftriaxone Sodium/Dextrose 1 (gm/ Premix) 50 mls @ 100 mls/hr IV Q24H [facility] Last Admin: 12/25/18 16:15 Dose: 100 mls/hr Ondansetron HCl (Zofran) 4 mg IVPUSH Q4H PRN PRN Reason: Nausea Ondansetron HCl (Zofran Odt) 4 mg PO Q4H PRN PRN Reason: nausea, able to take PO Oxycodone HCl (Oxycodone) 5 mg PO Q4H PRN PRN Reason: Pain (moderate 4-6) Last Admin: 12/26/18 13:30 Dose: 5 mg Fesoterodine Fumarate [Toviaz] 8 Mg 1 each PO DAILY [facility] Last Admin: 12/26/18 08:33 Dose: 1 each L.Acidoph,Paracasei, B.Lactis [Probiotic ] 1 each PO DAILY [facility] Last Admin: 12/26/18 08:24 Dose: 1 each Sodium Chloride (Saline Flush) 10 ml FLUSH ASDIRECTED PRN PRN Reason: Keep Vein Open Sodium Chloride (Saline Flush) 2.5 ml FLUSH ASDIRECTED PRN PRN Reason: Keep Vein Open Discontinued Medications Acetaminophen (Tylenol) 650 mg PO NOW ONE Stop: 12/23/18 21:47 Last Admin: 12/23/18 21:49 Dose: 650 mg Acetaminophen (Tylenol) Confirm Administered Dose 650 mg .ROUTE .STK-MED ONE Stop: 12/23/18 21:48 Last Admin: 12/23/18 22:04 Dose: Not Given Acetaminophen (Tylenol) 650 mg PO Q6H PRN PRN Reason: pain or fever Last Admin: 12/25/18 16:12 Dose: 650 mg Heparin Sodium (Porcine) (Heparin Sodium) 5,000 units SUBCUT Q8H [facility] Last Admin: 12/24/18 09:49 Dose: 5,000 units Sodium Chloride (Normal Saline) 1,000 mls @ 125 mls/hr IV STAT [facility] Last Infusion: 12/23/18 22:35 Dose: 999 mls/hr Piperacillin Sod/Tazobactam (Sod 3.375 gm/ Sodium Chloride) 50 mls @ 100 mls/ hr IV ONETIME ONE Stop: 12/23/18 22:36 Last Admin: 12/23/18 22:53 Dose: Not Given Vancomycin HCl 1 gm/ Sodium (Chloride) 250 mls @ 166 mls/hr IV ONETIME ONE Stop: 12/23/18 23:37 Last Admin: 12/23/18 22:26 Dose: 166 mls/hr Piperacillin Sod/Tazobactam (Sod 2.25 gm/ Sodium Chloride) 50 mls @ 100 mls/hr IV ONETIME ONE Stop: 12/23/18 22:44 Last Admin: 12/23/18 22:26 Dose: 100 mls/hr Sodium Chloride (Normal Saline) Confirm Administered Dose 50 mls @ as directed .ROUTE .STK-MED ONE Stop: 12/23/18 22:19 Last Admin: 12/23/18 22:53 Dose: Not Given Lactated Ringer's (Ringers, Lactated) 1,000 mls @ 125 mls/hr IV ASDIRECTED [facility] Last Admin: 12/24/18 08:13 Dose: 125 mls/hr Piperacillin Sod/Tazobactam (Sod 2.25 gm/ Sodium Chloride) 50 mls @ 100 mls/hr IV Q8H [facility] Last Admin: 12/25/18 09:29 Dose: 100 mls/hr Sodium Chloride (Normal Saline) 1,000 mls @ 100 mls/hr IV STAT ONE Stop: 12/24/18 22:38 Last Admin: 12/24/18 14:38 Dose: 100 mls/hr Ibuprofen (Motrin) 400 mg PO Q6H PRN PRN Reason: Pain Last Admin: 12/25/18 18:20 Dose: 400 mg Piperacillin Sod/Tazobactam Sod (Zosyn) Confirm Administered Dose 2.25 gm .ROUTE .STK-MED ONE Stop: 12/23/18 22:17 Last Admin: 12/23/18 22:53 Dose: Not Given - My Orders Last 24 Hours: My Active Orders 12/25/18 19:34 Consult to Hospice [CONS] Routine
[2018-12-26] MEDS: cefTRIAXone 1 GM in Premix Bag 1 BAG IV SCH (16:22)
[2018-12-26] MEDS: Pantoprazole 40 MG in Sodium Chloride 0.9% 10 ML IV SCH (17:43)
[2018-12-27] MEDS: Belladonna Alkaloids/Opium 16.2-30 MG Supp RECTAL PRN ×3 (02:20→16:13)
[2018-12-27 07:10] LABS: BLOOD UREA NITROGEN,BUN 20 mg/dL (7.0-18.0); CARBON DIOXIDE,CO2 23.3 mmol/L (21.0-32.0); CHLORIDE,CL 103 mmol/L (98-107); GLUCOSE RANDOM 90 mg/dL (74-106); POTASSIUM,K 3.5 mmol/L (3.5-5.1); SODIUM,NA 135 mmol/L (136-148)
[2018-12-27] MEDS: oxyCODONE 5 MG Tab PO PRN ×3 (07:11→16:43)
[2018-12-27] MEDS: Fesoterodine Fumarate [Toviaz] 8 MG PO SCH (08:22)
[2018-12-27] MEDS: L.Acidoph,Paracasei, B.Lactis [Probiotic] PO SCH (08:22)
[2018-12-27] MEDS: Sodium Chloride 0.9% 1,000 ML IV SCH ×2 (08:24→20:30)
--- NOTE | 2018-12-27 08:46 | PCM.DCSUM1 ---
<Rahat Franklin - Last Filed: 12/27/18 09:47> Discharge Summary - Hospital Course Free Text/Narrative:: 78-year-old male who presented to [facility] with complaint of fevers. He has a PMH of osteosarcoma, bladder cancer and prostate cancer s/p prostatectomy. Patient is on chemotherapy and radiation. He has right chest port in place as well as a suprapubic catheter. Patient's CXR was negative and blood cultures were also negative. He was initially started on IV Zosyn but then switched to Ceftriaxone after urine cultures came back positive for Klebsiella. Patient's last fever was over 24 hours ago. Furthermore, patient was also found to have a hemoglobin level of 6.7 on admission and was transfused with 2 units of leukocyte depleted blood. His hemoglobin level has remained stable after transfusion. Patient also suffers from chronic bladder spasms and is on chronic pain medication. Patient had been following-up with oncologist Dr. Washburn and first started chemotherapy on 12/07. Patient has also been following Dr. Beverly since having his suprapubic catheter placed which chronically drains dark brown/ red colored urine as per family. As per patient and family, they do not wish to pursue further chemotherapy or radiation at this point in time. Patient has been accepted into [facility]. PT/OT/ST to evaluate and treat. Diagnosis: Stroke: No - Discharge Data Discharge Date: 12/27/18 Discharge Disposition: DC/Tfer to SNF 03 Condition: Fair - Patient Summary/Data Consults: Consultations 12/25/18 19:34 Consult to Hospice [CONS] Routine - Patient Instructions Diet: Usual Diet as Tolerated Activity: As Tolerated Driving: Do Not Drive Showering/Bathing: May Shower Notify Provider of: Fever, Increased Pain, Swelling and Redness, Drainage, Nausea and/or Vomiting Other/Special Instructions: - Supra pubic catheter cares. - PT/OT/ST to evaluate and treat - Discharge Plan *PRESCRIPTION DRUG MONITORING PROGRAM REVIEWED*: Not Applicable *COPY OF PRESCRIPTION DRUG MONITORING REPORT IN PATIENT MARYSE: Not Applicable Prescriptions/Med Rec: Acetaminophen 500 mg PO Q6H PRN 30 Days #30 tablet PRN Reason: Fever Home Medications: Home Meds oxyCODONE HCl/Acetaminophen [Percocet 5-325 mg Tablet] 1 tab PO QID 11/07/18 [ History] Fesoterodine Fumarate [Toviaz] 8 mg PO DAILY 12/24/18 [History] L.acidoph,Paracasei, B.lactis [Probiotic] 1 each PO DAILY 12/24/18 [History] Opium/Belladonna Alkaloids [Belladonna-Opium 16.2-30 Supp] 1 supp RECTAL Q6HR PRN 12/24/18 [History] Acetaminophen 500 mg PO Q6H PRN 30 Days #30 tablet 12/27/18 [Rx] Oxygen Therapy Mode: Room Air Referrals: Atul Syed MD [Physician] - - Discharge Summary/Plan Comment DC Time >30 min.: No - Patient Data Vitals - Most Recent: Last Vital Signs Temp 97.4 F 12/27/18 07:48 Pulse 93 12/27/18 07:48 Resp 18 12/27/18 07:48 BP 170/85 H 12/27/18 07:48 Pulse Ox 97 12/27/18 07:48 Weight - Most Recent: 61.887 kg I&O - Last 24 hours: Intake & Output 12/26/18 12/27/18 12/27/18 22:59 06:59 14:59 Intake Total 1678 968 Output Total 700 950 Balance 978 18 Lab Results - Last 24 hrs: Laboratory Results - last 24 hr 12/27/18 12/27/18 Range/Units 06:01 06:01 WBC 3.55 L (4.0-11.0) K/uL RBC 2.80 L (4.50-5.90) M/uL Hgb 8.5 L (13.0-17.0) g/dL Hct 26.0 L (38.0-50.0) % MCV 92.9 (80.0-98.0) fL MCH 30.4 (27.0-32.0) pg MCHC 32.7 (31.0-37.0) g/dL RDW Std Deviation 52.2 (28.0-62.0) fl RDW Coeff of Jeanie 15 (11.0-15.0) % Plt Count 346 (150-400) K/uL MPV 8.80 (7.40-12.00) fL Neut % (Auto) 76.6 (48.0-80.0) % Lymph % (Auto) 11.0 L (16.0-40.0) % [place] % (Auto) 11.8 (0.0-15.0) % Eos % (Auto) 0.6 (0.0-7.0) % Baso % (Auto) 0.0 (0.0-1.5) % Neut # (Auto) 2.7 (1.4-5.7) K/uL Lymph # (Auto) 0.4 L (0.6-2.4) K/uL [place] # (Auto) 0.4 (0.0-0.8) K/uL Eos # (Auto) 0.0 (0.0-0.7) K/uL Baso # (Auto) 0.0 (0.0-0.1) K/uL Nucleated RBC % 0.0 /100WBC Nucleated RBCs # 0 K/uL Sodium 135 L (136-148) mmol/L Potassium 3.5 (3.5-5.1) mmol/L Chloride 103 (98-107) mmol/L Carbon Dioxide 23.3 (21.0-32.0) mmol/L BUN 20 H (7.0-18.0) mg/dL Creatinine 0.8 (0.8-1.3) mg/dL Est Cr Clr Drug Dosing 66.61 mL/min Estimated GFR (MDRD) > 60.0 ml/min Glucose 90 (74-106) mg/dL Calcium 7.6 L (8.5-10.1) mg/dL MICHAEL Results - Last 24 hrs: Microbiology 12/23/18 22:02 Aerobic Blood Culture - Preliminary Blood - Venous - Lab Draw NO GROWTH AFTER 3 DAYS Anaerobic Blood Culture - Preliminary NO GROWTH AFTER 3 DAYS 12/23/18 21:41 Aerobic Blood Culture - Preliminary Blood - Venous NO GROWTH AFTER 3 DAYS Anaerobic Blood Culture - Preliminary NO GROWTH AFTER 3 DAYS Med Orders - Current: Current Medications Acetaminophen (Tylenol Extra Strength) 1,000 mg PO Q6H PRN PRN Reason: pain or fever Last Admin: 12/26/18 20:10 Dose: 1,000 mg Belladonna Alkaloids/Opium (B & O Supprettes No. 15a) 1 supp RECTAL Q6HR PRN PRN Reason: Spasms Last Admin: 12/27/18 08:21 Dose: 1 supp Pantoprazole Sodium 40 mg/ (Sodium Chloride) 10 mls @ 300 mls/hr IV Q24H [facility] Last Admin: 12/26/18 17:43 Dose: 300 mls/hr Sodium Chloride (Normal Saline) 1,000 mls @ 75 mls/hr IV STAT [facility] Last Admin: 12/27/18 08:24 Dose: 75 mls/hr Ceftriaxone Sodium/Dextrose 1 (gm/ Premix) 50 mls @ 100 mls/hr IV Q24H [facility] Last Admin: 12/26/18 16:22 Dose: 100 mls/hr Ondansetron HCl (Zofran) 4 mg IVPUSH Q4H PRN PRN Reason: Nausea Ondansetron HCl (Zofran Odt) 4 mg PO Q4H PRN PRN Reason: nausea, able to take PO Oxycodone HCl (Oxycodone) 5 mg PO Q4H PRN PRN Reason: Pain (moderate 4-6) Last Admin: 12/27/18 07:11 Dose: 5 mg Fesoterodine Fumarate [Toviaz] 8 Mg 1 each PO DAILY [facility] Last Admin: 12/27/18 08:22 Dose: 1 each L.Acidoph,Paracasei, B.Lactis [Probiotic ] 1 each PO DAILY [facility] Last Admin: 12/27/18 08:22 Dose: 1 each Sodium Chloride (Saline Flush) 10 ml FLUSH ASDIRECTED PRN PRN Reason: Keep Vein Open Sodium Chloride (Saline Flush) 2.5 ml FLUSH ASDIRECTED PRN PRN Reason: Keep Vein Open Discontinued Medications Acetaminophen (Tylenol) 650 mg PO NOW ONE Stop: 12/23/18 21:47 Last Admin: 12/23/18 21:49 Dose: 650 mg Acetaminophen (Tylenol) Confirm Administered Dose 650 mg .ROUTE .STK-MED ONE Stop: 12/23/18 21:48 Last Admin: 12/23/18 22:04 Dose: Not Given Acetaminophen (Tylenol) 650 mg PO Q6H PRN PRN Reason: pain or fever Last Admin: 12/25/18 16:12 Dose: 650 mg Heparin Sodium (Porcine) (Heparin Sodium) 5,000 units SUBCUT Q8H [facility] Last Admin: 12/24/18 09:49 Dose: 5,000 units Sodium Chloride (Normal Saline) 1,000 mls @ 125 mls/hr IV STAT [facility] Last Infusion: 12/23/18 22:35 Dose: 999 mls/hr Piperacillin Sod/Tazobactam (Sod 3.375 gm/ Sodium Chloride) 50 mls @ 100 mls/ hr IV ONETIME ONE Stop: 12/23/18 22:36 Last Admin: 12/23/18 22:53 Dose: Not Given Vancomycin HCl 1 gm/ Sodium (Chloride) 250 mls @ 166 mls/hr IV ONETIME ONE Stop: 12/23/18 23:37 Last Admin: 12/23/18 22:26 Dose: 166 mls/hr Piperacillin Sod/Tazobactam (Sod 2.25 gm/ Sodium Chloride) 50 mls @ 100 mls/hr IV ONETIME ONE Stop: 12/23/18 22:44 Last Admin: 12/23/18 22:26 Dose: 100 mls/hr Sodium Chloride (Normal Saline) Confirm Administered Dose 50 mls @ as directed .ROUTE .STK-MED ONE Stop: 12/23/18 22:19 Last Admin: 12/23/18 22:53 Dose: Not Given Lactated Ringer's (Ringers, Lactated) 1,000 mls @ 125 mls/hr IV ASDIRECTED [facility] Last Admin: 12/24/18 08:13 Dose: 125 mls/hr Piperacillin Sod/Tazobactam (Sod 2.25 gm/ Sodium Chloride) 50 mls @ 100 mls/hr IV Q8H [facility] Last Admin: 12/25/18 09:29 Dose: 100 mls/hr Sodium Chloride (Normal Saline) 1,000 mls @ 100 mls/hr IV STAT ONE Stop: 12/24/18 22:38 Last Admin: 12/24/18 14:38 Dose: 100 mls/hr Ibuprofen (Motrin) 400 mg PO Q6H PRN PRN Reason: Pain Last Admin: 12/25/18 18:20 Dose: 400 mg Piperacillin Sod/Tazobactam Sod (Zosyn) Confirm Administered Dose 2.25 gm .ROUTE .STK-MED ONE Stop: 12/23/18 22:17 Last Admin: 12/23/18 22:53 Dose: Not Given <Tino Pearl - Last Filed: 12/27/18 12:22> Discharge Summary - Hospital Course Free Text/Narrative:: I have examined the patient independently of bilingual medical assistant, Dr. Noemi MD. I have discussed the case with him. I have reviewed and agree with the examination and plan as outlined by him. Please see orders. The patient has been appropriate for discharge. Bed currently not available. We'll discharge when bed at [facility] is available. - Patient Summary/Data Consults: Consultations 12/25/18 19:34 Consult to Hospice [CONS] Routine - Patient Data Vitals - Most Recent: Last Vital Signs Temp 36.3 C 12/27/18 07:48 Pulse 93 12/27/18 07:48 Resp 18 12/27/18 07:48 BP 170/85 H 12/27/18 07:48 Pulse Ox 97 12/27/18 07:48 I&O - Last 24 hours: Intake & Output 12/26/18 12/27/18 12/27/18 22:59 06:59 14:59 Intake Total 1678 968 360 Output Total 700 950 Balance 978 18 360 Lab Results - Last 24 hrs: Laboratory Results - last 24 hr 12/27/18 12/27/18 Range/Units 06:01 06:01 WBC 3.55 L (4.0-11.0) K/uL RBC 2.80 L (4.50-5.90) M/uL Hgb 8.5 L (13.0-17.0) g/dL Hct 26.0 L (38.0-50.0) % MCV 92.9 (80.0-98.0) fL MCH 30.4 (27.0-32.0) pg MCHC 32.7 (31.0-37.0) g/dL RDW Std Deviation 52.2 (28.0-62.0) fl RDW Coeff of Jeanie 15 (11.0-15.0) % Plt Count 346 (150-400) K/uL MPV 8.80 (7.40-12.00) fL Neut % (Auto) 76.6 (48.0-80.0) % Lymph % (Auto) 11.0 L (16.0-40.0) % [place] % (Auto) 11.8 (0.0-15.0) % Eos % (Auto) 0.6 (0.0-7.0) % Baso % (Auto) 0.0 (0.0-1.5) % Neut # (Auto) 2.7 (1.4-5.7) K/uL Lymph # (Auto) 0.4 L (0.6-2.4) K/uL [place] # (Auto) 0.4 (0.0-0.8) K/uL Eos # (Auto) 0.0 (0.0-0.7) K/uL Baso # (Auto) 0.0 (0.0-0.1) K/uL Nucleated RBC % 0.0 /100WBC Nucleated RBCs # 0 K/uL Sodium 135 L (136-148) mmol/L Potassium 3.5 (3.5-5.1) mmol/L Chloride 103 (98-107) mmol/L Carbon Dioxide 23.3 (21.0-32.0) mmol/L BUN 20 H (7.0-18.0) mg/dL Creatinine 0.8 (0.8-1.3) mg/dL Est Cr Clr Drug Dosing 66.61 mL/min Estimated GFR (MDRD) > 60.0 ml/min Glucose 90 (74-106) mg/dL Calcium 7.6 L (8.5-10.1) mg/dL MICHAEL Results - Last 24 hrs: Microbiology 12/23/18 22:02 Aerobic Blood Culture - Preliminary Blood - Venous - Lab Draw NO GROWTH AFTER 3 DAYS Anaerobic Blood Culture - Preliminary NO GROWTH AFTER 3 DAYS 12/23/18 21:41 Aerobic Blood Culture - Preliminary Blood - Venous NO GROWTH AFTER 3 DAYS Anaerobic Blood Culture - Preliminary NO GROWTH AFTER 3 DAYS Med Orders - Current: Current Medications Acetaminophen (Tylenol Extra Strength) 1,000 mg PO Q6H PRN PRN Reason: pain or fever Last Admin: 12/26/18 20:10 Dose: 1,000 mg Belladonna Alkaloids/Opium (B & O Supprettes No. 15a) 1 supp RECTAL Q6HR PRN PRN Reason: Spasms Last Admin: 12/27/18 08:21 Dose: 1 supp Pantoprazole Sodium 40 mg/ (Sodium Chloride) 10 mls @ 300 mls/hr IV Q24H [facility] Last Admin: 12/26/18 17:43 Dose: 300 mls/hr Sodium Chloride (Normal Saline) 1,000 mls @ 75 mls/hr IV STAT [facility] Last Admin: 12/27/18 08:24 Dose: 75 mls/hr Ondansetron HCl (Zofran) 4 mg IVPUSH Q4H PRN PRN Reason: Nausea Ondansetron HCl (Zofran Odt) 4 mg PO Q4H PRN PRN Reason: nausea, able to take PO Oxycodone HCl (Oxycodone) 5 mg PO Q4H PRN PRN Reason: Pain (moderate 4-6) Last Admin: 12/27/18 11:55 Dose: 5 mg Fesoterodine Fumarate [Toviaz] 8 Mg 1 each PO DAILY [facility] Last Admin: 12/27/18 08:22 Dose: 1 each L.Acidoph,Paracasei, B.Lactis [Probiotic ] 1 each PO DAILY [facility] Last Admin: 12/27/18 08:22 Dose: 1 each Sodium Chloride (Saline Flush) 10 ml FLUSH ASDIRECTED PRN PRN Reason: Keep Vein Open Sodium Chloride (Saline Flush) 2.5 ml FLUSH ASDIRECTED PRN PRN Reason: Keep Vein Open Discontinued Medications Acetaminophen (Tylenol) 650 mg PO NOW ONE Stop: 12/23/18 21:47 Last Admin: 12/23/18 21:49 Dose: 650 mg Acetaminophen (Tylenol) Confirm Administered Dose 650 mg .ROUTE .STK-MED ONE Stop: 12/23/18 21:48 Last Admin: 12/23/18 22:04 Dose: Not Given Acetaminophen (Tylenol) 650 mg PO Q6H PRN PRN Reason: pain or fever Last Admin: 12/25/18 16:12 Dose: 650 mg Heparin Sodium (Porcine) (Heparin Sodium) 5,000 units SUBCUT Q8H [facility] Last Admin: 12/24/18 09:49 Dose: 5,000 units Sodium Chloride (Normal Saline) 1,000 mls @ 125 mls/hr IV STAT [facility] Last Infusion: 12/23/18 22:35 Dose: 999 mls/hr Piperacillin Sod/Tazobactam (Sod 3.375 gm/ Sodium Chloride) 50 mls @ 100 mls/ hr IV ONETIME ONE Stop: 12/23/18 22:36 Last Admin: 12/23/18 22:53 Dose: Not Given Vancomycin HCl 1 gm/ Sodium (Chloride) 250 mls @ 166 mls/hr IV ONETIME ONE Stop: 12/23/18 23:37 Last Admin: 12/23/18 22:26 Dose: 166 mls/hr Piperacillin Sod/Tazobactam (Sod 2.25 gm/ Sodium Chloride) 50 mls @ 100 mls/hr IV ONETIME ONE Stop: 12/23/18 22:44 Last Admin: 12/23/18 22:26 Dose: 100 mls/hr Sodium Chloride (Normal Saline) Confirm Administered Dose 50 mls @ as directed .ROUTE .STK-MED ONE Stop: 12/23/18 22:19 Last Admin: 12/23/18 22:53 Dose: Not Given Lactated Ringer's (Ringers, Lactated) 1,000 mls @ 125 mls/hr IV ASDIRECTED [facility] Last Admin: 12/24/18 08:13 Dose: 125 mls/hr Piperacillin Sod/Tazobactam (Sod 2.25 gm/ Sodium Chloride) 50 mls @ 100 mls/hr IV Q8H [facility] Last Admin: 12/25/18 09:29 Dose: 100 mls/hr Sodium Chloride (Normal Saline) 1,000 mls @ 100 mls/hr IV STAT ONE Stop: 12/24/18 22:38 Last Admin: 12/24/18 14:38 Dose: 100 mls/hr Ceftriaxone Sodium/Dextrose 1 (gm/ Premix) 50 mls @ 100 mls/hr IV Q24H [facility] Last Admin: 12/26/18 16:22 Dose: 100 mls/hr Ceftriaxone Sodium/Dextrose 1 (gm/ Premix) 50 mls @ 100 mls/hr IV ONETIME [facility]A Stop: 12/27/18 09:53 Last Admin: 12/27/18 09:42 Dose: 100 mls/hr Ibuprofen (Motrin) 400 mg PO Q6H PRN PRN Reason: Pain Last Admin: 12/25/18 18:20 Dose: 400 mg Piperacillin Sod/Tazobactam Sod (Zosyn) Confirm Administered Dose 2.25 gm .ROUTE .STK-MED ONE Stop: 12/23/18 22:17 Last Admin: 12/23/18 22:53 Dose: Not Given
[2018-12-27] MEDS ORDERED: cefTRIAXone 1 GM in Premix Bag 1 BAG IV STA (09:24)
--- NOTE | 2018-12-27 11:33 | PCM.PN ---
<Rahat Franklin M - Last Filed: 12/27/18 11:26> - General Info Date of Service: 12/27/18 Subjective Update: Patient reports sleeping well overnight, no fevers or chills. Has been having bowel movements. Tolerating oral diet well. - Patient Data Vitals - Most Recent: Last Vital Signs Temp 97.4 F 12/27/18 07:48 Pulse 93 12/27/18 07:48 Resp 18 12/27/18 07:48 BP 170/85 H 12/27/18 07:48 Pulse Ox 97 12/27/18 07:48 Weight - Most Recent: 61.887 kg I&O - Last 24 Hours: Intake & Output 12/26/18 12/27/18 12/27/18 22:59 06:59 14:59 Intake Total 1678 968 360 Output Total 700 950 Balance 978 18 360 Lab Results Last 24 Hours: Laboratory Results - last 24 hr 12/27/18 12/27/18 Range/Units 06:01 06:01 WBC 3.55 L (4.0-11.0) K/uL RBC 2.80 L (4.50-5.90) M/uL Hgb 8.5 L (13.0-17.0) g/dL Hct 26.0 L (38.0-50.0) % MCV 92.9 (80.0-98.0) fL MCH 30.4 (27.0-32.0) pg MCHC 32.7 (31.0-37.0) g/dL RDW Std Deviation 52.2 (28.0-62.0) fl RDW Coeff of Jeanie 15 (11.0-15.0) % Plt Count 346 (150-400) K/uL MPV 8.80 (7.40-12.00) fL Neut % (Auto) 76.6 (48.0-80.0) % Lymph % (Auto) 11.0 L (16.0-40.0) % [place] % (Auto) 11.8 (0.0-15.0) % Eos % (Auto) 0.6 (0.0-7.0) % Baso % (Auto) 0.0 (0.0-1.5) % Neut # (Auto) 2.7 (1.4-5.7) K/uL Lymph # (Auto) 0.4 L (0.6-2.4) K/uL [place] # (Auto) 0.4 (0.0-0.8) K/uL Eos # (Auto) 0.0 (0.0-0.7) K/uL Baso # (Auto) 0.0 (0.0-0.1) K/uL Nucleated RBC % 0.0 /100WBC Nucleated RBCs # 0 K/uL Sodium 135 L (136-148) mmol/L Potassium 3.5 (3.5-5.1) mmol/L Chloride 103 (98-107) mmol/L Carbon Dioxide 23.3 (21.0-32.0) mmol/L BUN 20 H (7.0-18.0) mg/dL Creatinine 0.8 (0.8-1.3) mg/dL Est Cr Clr Drug Dosing 66.61 mL/min Estimated GFR (MDRD) > 60.0 ml/min Glucose 90 (74-106) mg/dL Calcium 7.6 L (8.5-10.1) mg/dL Killian Results Last 24 Hours: Microbiology 12/23/18 22:02 Aerobic Blood Culture - Preliminary Blood - Venous - Lab Draw NO GROWTH AFTER 3 DAYS Anaerobic Blood Culture - Preliminary NO GROWTH AFTER 3 DAYS 12/23/18 21:41 Aerobic Blood Culture - Preliminary Blood - Venous NO GROWTH AFTER 3 DAYS Anaerobic Blood Culture - Preliminary NO GROWTH AFTER 3 DAYS Med Orders - Current: Current Medications Acetaminophen (Tylenol Extra Strength) 1,000 mg PO Q6H PRN PRN Reason: pain or fever Last Admin: 12/26/18 20:10 Dose: 1,000 mg Belladonna Alkaloids/Opium (B & O Supprettes No. 15a) 1 supp RECTAL Q6HR PRN PRN Reason: Spasms Last Admin: 12/27/18 08:21 Dose: 1 supp Pantoprazole Sodium 40 mg/ (Sodium Chloride) 10 mls @ 300 mls/hr IV Q24H ZOHAIB Last Admin: 12/26/18 17:43 Dose: 300 mls/hr Sodium Chloride (Normal Saline) 1,000 mls @ 75 mls/hr IV STAT ZOHAIB Last Admin: 12/27/18 08:24 Dose: 75 mls/hr Ondansetron HCl (Zofran) 4 mg IVPUSH Q4H PRN PRN Reason: Nausea Ondansetron HCl (Zofran Odt) 4 mg PO Q4H PRN PRN Reason: nausea, able to take PO Oxycodone HCl (Oxycodone) 5 mg PO Q4H PRN PRN Reason: Pain (moderate 4-6) Last Admin: 12/27/18 07:11 Dose: 5 mg Fesoterodine Fumarate [Toviaz] 8 Mg 1 each PO DAILY COUNT INCLUDES THE [facility] Last Admin: 12/27/18 08:22 Dose: 1 each L.Acidoph,Paracasei, B.Lactis [Probiotic ] 1 each PO DAILY COUNT INCLUDES THE [facility] Last Admin: 12/27/18 08:22 Dose: 1 each Sodium Chloride (Saline Flush) 10 ml FLUSH ASDIRECTED PRN PRN Reason: Keep Vein Open Sodium Chloride (Saline Flush) 2.5 ml FLUSH ASDIRECTED PRN PRN Reason: Keep Vein Open Discontinued Medications Acetaminophen (Tylenol) 650 mg PO NOW ONE Stop: 12/23/18 21:47 Last Admin: 12/23/18 21:49 Dose: 650 mg Acetaminophen (Tylenol) Confirm Administered Dose 650 mg .ROUTE .STK-MED ONE Stop: 12/23/18 21:48 Last Admin: 12/23/18 22:04 Dose: Not Given Acetaminophen (Tylenol) 650 mg PO Q6H PRN PRN Reason: pain or fever Last Admin: 12/25/18 16:12 Dose: 650 mg Heparin Sodium (Porcine) (Heparin Sodium) 5,000 units SUBCUT Q8H COUNT INCLUDES THE [facility] Last Admin: 12/24/18 09:49 Dose: 5,000 units Sodium Chloride (Normal Saline) 1,000 mls @ 125 mls/hr IV STAT COUNT INCLUDES THE [facility] Last Infusion: 12/23/18 22:35 Dose: 999 mls/hr Piperacillin Sod/Tazobactam (Sod 3.375 gm/ Sodium Chloride) 50 mls @ 100 mls/ hr IV ONETIME ONE Stop: 12/23/18 22:36 Last Admin: 12/23/18 22:53 Dose: Not Given Vancomycin HCl 1 gm/ Sodium (Chloride) 250 mls @ 166 mls/hr IV ONETIME ONE Stop: 12/23/18 23:37 Last Admin: 12/23/18 22:26 Dose: 166 mls/hr Piperacillin Sod/Tazobactam (Sod 2.25 gm/ Sodium Chloride) 50 mls @ 100 mls/hr IV ONETIME ONE Stop: 12/23/18 22:44 Last Admin: 12/23/18 22:26 Dose: 100 mls/hr Sodium Chloride (Normal Saline) Confirm Administered Dose 50 mls @ as directed .ROUTE .STK-MED ONE Stop: 12/23/18 22:19 Last Admin: 12/23/18 22:53 Dose: Not Given Lactated Ringer's (Ringers, Lactated) 1,000 mls @ 125 mls/hr IV ASDIRECTED COUNT INCLUDES THE [facility] Last Admin: 12/24/18 08:13 Dose: 125 mls/hr Piperacillin Sod/Tazobactam (Sod 2.25 gm/ Sodium Chloride) 50 mls @ 100 mls/hr IV Q8H COUNT INCLUDES THE [facility] Last Admin: 12/25/18 09:29 Dose: 100 mls/hr Sodium Chloride (Normal Saline) 1,000 mls @ 100 mls/hr IV STAT ONE Stop: 12/24/18 22:38 Last Admin: 12/24/18 14:38 Dose: 100 mls/hr Ceftriaxone Sodium/Dextrose 1 (gm/ Premix) 50 mls @ 100 mls/hr IV Q24H COUNT INCLUDES THE [facility] Last Admin: 12/26/18 16:22 Dose: 100 mls/hr Ceftriaxone Sodium/Dextrose 1 (gm/ Premix) 50 mls @ 100 mls/hr IV ONETIME STA Stop: 12/27/18 09:53 Last Admin: 12/27/18 09:42 Dose: 100 mls/hr Ibuprofen (Motrin) 400 mg PO Q6H PRN PRN Reason: Pain Last Admin: 12/25/18 18:20 Dose: 400 mg Piperacillin Sod/Tazobactam Sod (Zosyn) Confirm Administered Dose 2.25 gm .ROUTE .STK-MED ONE Stop: 12/23/18 22:17 Last Admin: 12/23/18 22:53 Dose: Not Given - Exam General: Alert, Oriented, Cooperative, No Acute Distress Lungs: Clear to Auscultation, Normal Respiratory Effort GI/Abdominal Exam: Normal Bowel Sounds, Soft, Non-Tender, No Distention, Other ( suprapubic catheter draining dark brown/red colored urine) Extremities: Normal Inspection, No Pedal Edema - Problem List Review Problem List Initiated/Reviewed/Updated: Yes - My Orders Last 24 Hours: My Active Orders 12/27/18 09:36 Ready for Discharge [RC] PER UNIT ROUTINE - Plan Plan:: Assessment: 1. UTI, culture positive for Klebsiella. 2. Pancytopenia. 3. History of osteosarcoma and prostate cancer. Plan: 1. For UTI, continue IV ceftriaxone. Patient's last fever was more than 24 hours ago. 2. For pancytopenia, patient's hemoglobin level has remained stable. 3. For history of osteosarcoma and prostate cancer, patient and family would not like to pursue hospice after meeting with hospice team yesterday. Patient has been accepted to [facility] and is pending transfer. No beds are available at [place] today, likely will be transferred tomorrow. <Tino Pearl - Last Filed: 12/27/18 12:23> - General Info Admission Dx/Problem (Free Text): I have examined the patient independently of medical director of hospice, Dr. Noemi MD. I have discussed the case with him. I have reviewed and agree with the examination and plan as outlined by him. Please see orders. - Patient Data Vitals - Most Recent: Last Vital Signs Temp 36.3 C 12/27/18 07:48 Pulse 93 12/27/18 07:48 Resp 18 12/27/18 07:48 BP 170/85 H 12/27/18 07:48 Pulse Ox 97 12/27/18 07:48 I&O - Last 24 Hours: Intake & Output 12/26/18 12/27/18 12/27/18 22:59 06:59 14:59 Intake Total 1678 968 360 Output Total 700 950 Balance 978 18 360 Lab Results Last 24 Hours: Laboratory Results - last 24 hr 12/27/18 12/27/18 Range/Units 06:01 06:01 WBC 3.55 L (4.0-11.0) K/uL RBC 2.80 L (4.50-5.90) M/uL Hgb 8.5 L (13.0-17.0) g/dL Hct 26.0 L (38.0-50.0) % MCV 92.9 (80.0-98.0) fL MCH 30.4 (27.0-32.0) pg MCHC 32.7 (31.0-37.0) g/dL RDW Std Deviation 52.2 (28.0-62.0) fl RDW Coeff of Jeanie 15 (11.0-15.0) % Plt Count 346 (150-400) K/uL MPV 8.80 (7.40-12.00) fL Neut % (Auto) 76.6 (48.0-80.0) % Lymph % (Auto) 11.0 L (16.0-40.0) % [place] % (Auto) 11.8 (0.0-15.0) % Eos % (Auto) 0.6 (0.0-7.0) % Baso % (Auto) 0.0 (0.0-1.5) % Neut # (Auto) 2.7 (1.4-5.7) K/uL Lymph # (Auto) 0.4 L (0.6-2.4) K/uL [place] # (Auto) 0.4 (0.0-0.8) K/uL Eos # (Auto) 0.0 (0.0-0.7) K/uL Baso # (Auto) 0.0 (0.0-0.1) K/uL Nucleated RBC % 0.0 /100WBC Nucleated RBCs # 0 K/uL Sodium 135 L (136-148) mmol/L Potassium 3.5 (3.5-5.1) mmol/L Chloride 103 (98-107) mmol/L Carbon Dioxide 23.3 (21.0-32.0) mmol/L BUN 20 H (7.0-18.0) mg/dL Creatinine 0.8 (0.8-1.3) mg/dL Est Cr Clr Drug Dosing 66.61 mL/min Estimated GFR (MDRD) > 60.0 ml/min Glucose 90 (74-106) mg/dL Calcium 7.6 L (8.5-10.1) mg/dL Killian Results Last 24 Hours: Microbiology 12/23/18 22:02 Aerobic Blood Culture - Preliminary Blood - Venous - Lab Draw NO GROWTH AFTER 3 DAYS Anaerobic Blood Culture - Preliminary NO GROWTH AFTER 3 DAYS 12/23/18 21:41 Aerobic Blood Culture - Preliminary Blood - Venous NO GROWTH AFTER 3 DAYS Anaerobic Blood Culture - Preliminary NO GROWTH AFTER 3 DAYS Med Orders - Current: Current Medications Acetaminophen (Tylenol Extra Strength) 1,000 mg PO Q6H PRN PRN Reason: pain or fever Last Admin: 12/26/18 20:10 Dose: 1,000 mg Belladonna Alkaloids/Opium (B & O Supprettes No. 15a) 1 supp RECTAL Q6HR PRN PRN Reason: Spasms Last Admin: 12/27/18 08:21 Dose: 1 supp Pantoprazole Sodium 40 mg/ (Sodium Chloride) 10 mls @ 300 mls/hr IV Q24H ZOHAIB Last Admin: 12/26/18 17:43 Dose: 300 mls/hr Sodium Chloride (Normal Saline) 1,000 mls @ 75 mls/hr IV STAT COUNT INCLUDES THE [facility] Last Admin: 12/27/18 08:24 Dose: 75 mls/hr Ondansetron HCl (Zofran) 4 mg IVPUSH Q4H PRN PRN Reason: Nausea Ondansetron HCl (Zofran Odt) 4 mg PO Q4H PRN PRN Reason: nausea, able to take PO Oxycodone HCl (Oxycodone) 5 mg PO Q4H PRN PRN Reason: Pain (moderate 4-6) Last Admin: 12/27/18 11:55 Dose: 5 mg Fesoterodine Fumarate [Toviaz] 8 Mg 1 each PO DAILY COUNT INCLUDES THE [facility] Last Admin: 12/27/18 08:22 Dose: 1 each L.Acidoph,Paracasei, B.Lactis [Probiotic ] 1 each PO DAILY COUNT INCLUDES THE [facility] Last Admin: 12/27/18 08:22 Dose: 1 each Sodium Chloride (Saline Flush) 10 ml FLUSH ASDIRECTED PRN PRN Reason: Keep Vein Open Sodium Chloride (Saline Flush) 2.5 ml FLUSH ASDIRECTED PRN PRN Reason: Keep Vein Open Discontinued Medications Acetaminophen (Tylenol) 650 mg PO NOW ONE Stop: 12/23/18 21:47 Last Admin: 12/23/18 21:49 Dose: 650 mg Acetaminophen (Tylenol) Confirm Administered Dose 650 mg .ROUTE .STK-MED ONE Stop: 12/23/18 21:48 Last Admin: 12/23/18 22:04 Dose: Not Given Acetaminophen (Tylenol) 650 mg PO Q6H PRN PRN Reason: pain or fever Last Admin: 12/25/18 16:12 Dose: 650 mg Heparin Sodium (Porcine) (Heparin Sodium) 5,000 units SUBCUT Q8H COUNT INCLUDES THE [facility] Last Admin: 12/24/18 09:49 Dose: 5,000 units Sodium Chloride (Normal Saline) 1,000 mls @ 125 mls/hr IV STAT COUNT INCLUDES THE [facility] Last Infusion: 12/23/18 22:35 Dose: 999 mls/hr Piperacillin Sod/Tazobactam (Sod 3.375 gm/ Sodium Chloride) 50 mls @ 100 mls/ hr IV ONETIME ONE Stop: 12/23/18 22:36 Last Admin: 12/23/18 22:53 Dose: Not Given Vancomycin HCl 1 gm/ Sodium (Chloride) 250 mls @ 166 mls/hr IV ONETIME ONE Stop: 12/23/18 23:37 Last Admin: 12/23/18 22:26 Dose: 166 mls/hr Piperacillin Sod/Tazobactam (Sod 2.25 gm/ Sodium Chloride) 50 mls @ 100 mls/hr IV ONETIME ONE Stop: 12/23/18 22:44 Last Admin: 12/23/18 22:26 Dose: 100 mls/hr Sodium Chloride (Normal Saline) Confirm Administered Dose 50 mls @ as directed .ROUTE .STK-MED ONE Stop: 12/23/18 22:19 Last Admin: 12/23/18 22:53 Dose: Not Given Lactated Ringer's (Ringers, Lactated) 1,000 mls @ 125 mls/hr IV ASDIRECTED COUNT INCLUDES THE [facility] Last Admin: 12/24/18 08:13 Dose: 125 mls/hr Piperacillin Sod/Tazobactam (Sod 2.25 gm/ Sodium Chloride) 50 mls @ 100 mls/hr IV Q8H COUNT INCLUDES THE [facility] Last Admin: 12/25/18 09:29 Dose: 100 mls/hr Sodium Chloride (Normal Saline) 1,000 mls @ 100 mls/hr IV STAT ONE Stop: 12/24/18 22:38 Last Admin: 12/24/18 14:38 Dose: 100 mls/hr Ceftriaxone Sodium/Dextrose 1 (gm/ Premix) 50 mls @ 100 mls/hr IV Q24H COUNT INCLUDES THE [facility] Last Admin: 12/26/18 16:22 Dose: 100 mls/hr Ceftriaxone Sodium/Dextrose 1 (gm/ Premix) 50 mls @ 100 mls/hr IV ONETIME STA Stop: 12/27/18 09:53 Last Admin: 12/27/18 09:42 Dose: 100 mls/hr Ibuprofen (Motrin) 400 mg PO Q6H PRN PRN Reason: Pain Last Admin: 12/25/18 18:20 Dose: 400 mg Piperacillin Sod/Tazobactam Sod (Zosyn) Confirm Administered Dose 2.25 gm .ROUTE .STK-MED ONE Stop: 12/23/18 22:17 Last Admin: 12/23/18 22:53 Dose: Not Given
[2018-12-27] MEDS: Pantoprazole 40 MG in Sodium Chloride 0.9% 10 ML IV SCH (18:35)
[2018-12-28] MEDS: oxyCODONE 5 MG Tab PO PRN ×2 (02:49→08:44)
[2018-12-28] MEDS: Belladonna Alkaloids/Opium 16.2-30 MG Supp RECTAL PRN (05:29)
[2018-12-28] MEDS: Fesoterodine Fumarate [Toviaz] 8 MG PO SCH (08:40)
[2018-12-28] MEDS: L.Acidoph,Paracasei, B.Lactis [Probiotic] PO SCH (08:40)
[2018-12-28 09:40] VITALS: BP 143/78
== END 2018-12-28 09:15 | DRG 699 ==
LOC: MW.ED 21:04 → MW.MS 22:32 → UNDOADMIN 23:01 → MW.MS 23:46
PROVIDERS: ADMIT Internal Medicine; ATTEND Internal Medicine
PROC: 30233N1 Transfusion of Nonautologous Red Blood Cells into Peripheral Vein, Percutaneous Approach (ICD-10-PCS; principal; 2018-12-23)
DX: R50.9 Fever, unspecified (principal); D64.9 Anemia, unspecified; E87.8 Other disorders of electrolyte and fluid balance, not elsewhere classified; H54.7 Unspecified visual loss; T83.518A Infection and inflammatory reaction due to other urinary catheter, initial encounter; N39.0 Urinary tract infection, site not specified; Z85.46 Personal history of malignant neoplasm of prostate; Z93.6 Other artificial openings of urinary tract status; M10.9 Gout, unspecified; M19.042 Primary osteoarthritis, left hand; M19.041 Primary osteoarthritis, right hand; C67.9 Malignant neoplasm of bladder, unspecified; N17.9 Acute kidney failure, unspecified; C41.9 Malignant neoplasm of bone and articular cartilage, unspecified; D61.818 Other pancytopenia; E78.00 Pure hypercholesterolemia, unspecified; I10 Essential (primary) hypertension; M19.91 Primary osteoarthritis, unspecified site; B96.1 Klebsiella pneumoniae [K. pneumoniae] as the cause of diseases classified elsewhere; Y84.6 Urinary catheterization as the cause of abnormal reaction of the patient, or of later complication, without mention of misadventure at the time of the procedure; R31.9 Hematuria, unspecified; C61 Malignant neoplasm of prostate; Z85.51 Personal history of malignant neoplasm of bladder; Z92.21 Personal history of antineoplastic chemotherapy; Z90.49 Acquired absence of other specified parts of digestive tract; Z92.3 Personal history of irradiation; Z79.899 Other long term (current) drug therapy
CPT/HCPCS: 71045; 80053; 81001; 83605; 85025; 86850; 86900; 86901; 86920; 86921; 86922; 87040 ×2; 87086; 87088; 87186; 96365; 99285; A9270; J2543; J3370; J7040; J7050 ×2; 36415; 36430; 80048; 85027; 96361; 99284; C9113; J0696; J1642; J1644; J7120; P9016

== ENCOUNTER 2019-01-05 16:24 | Observation (INO) | payer MEDICARE, BC ==
[2019-01-05] MEDS ORDERED: Sodium Chloride 0.9% 2.5 ML Syringe FLUSH PRN (16:32)
[2019-01-05] MEDS ORDERED: Sodium Chloride 0.9% 10 ML Syringe FLUSH PRN (16:32)
[2019-01-05] MEDS ORDERED: Morphine 4 MG/ML Syringe IVPUSH ONE (16:57)
--- NOTE | 2019-01-05 17:07 | EDM.PDOC ---
ED HPI GENERAL MEDICAL PROBLEM - General Chief Complaint: Genitourinary Problem Stated Complaint: PAIN Time Seen by Provider: 01/05/19 17:07 Source of Information: Reports: Patient History Limitations: Reports: No Limitations - History of Present Illness INITIAL COMMENTS - FREE TEXT/NARRATIVE: HISTORY AND PHYSICAL: History of present illness: Patient is a 78-year-old male presents to the ED for lower abdominal pain. 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 Patient states he has had grossly bloody urine since it was placed and has received 4 blood transfusions. He was receiving a blood transfusion today when he starting have a lot of bladder spasming. He states he does occasionally have the bladder spasming and pain but today it has been relentless. He states he has been feeling chills today. He will occasionally use Belladonna/opium suppositories but did not get relief with this today. states he has not had as much urine output today. Patient does have a history of constipation and has not had a bowel movement in 2 days. Review of systems: As per history of present illness and below otherwise all systems reviewed and negative. Past medical history: As per history of present illness and as reviewed below otherwise noncontributory. Surgical history: As per history of present illness and as reviewed below otherwise noncontributory. Social history: No reported history of drug or alcohol abuse. Family history: As per history of present illness and as reviewed below otherwise noncontributory. Physical exam: General: Patient sitting comfortably in no acute distress and nontoxic appearing HEENT: Atraumatic, normocephalic, pupils reactive, negative for conjunctival pallor or scleral icterus, mucous membranes moist, throat clear, neck supple, nontender, trachea midline. No meningeal signs. Lungs: Clear to auscultation, breath sounds equal bilaterally, chest nontender. Heart: S1S2, regular, negative for clicks, rubs, or overt murmur. Abdomen: Soft, nondistended, nontender. Negative for masses or hepatosplenomegaly. Negative for costovertebral tenderness. No rigidity, rebound , guarding. Pelvis: Stable nontender. Genitourinary: suprapubic catheter in place without surrounding erythema. Grossly bloody urine in leg bag. Rectal: Deferred. Extremities: Atraumatic, negative for cords or calf pain. Neurovascular unremarkable. Neuro: Awake, alert, oriented. Cranial nerves II through XII unremarkable. Cerebellum unremarkable. Motor and sensory unremarkable throughout. Exam nonfocal. Notes: Diagnostics: CBC, CMP, blood culture x 2, UA Therapeutics: 1L NS IV 4mg Morphine IV 1mg Dilaudid IV 1g Rocephin IV Prescriptions: Impression: UTI, leukocytosis, abdominal pain Plan: Discussed with Dr. Mota, patient will be admitted to observation Definitive disposition and diagnosis as appropriate pending reevaluation and review of above. Pelvic Pain Score (Numeric/FACES): 9 - Related Data Allergies Allergy/AdvReac Type Severity Reaction Status Date / Time No Known Allergies Allergy Verified 01/05/19 16:30 Home Meds: Home Meds oxyCODONE HCl/Acetaminophen [Percocet 5-325 mg Tablet] 1 tab PO QID 11/07/18 [ History] Fesoterodine Fumarate [Toviaz] 8 mg PO DAILY 12/24/18 [History] L.acidoph,Paracasei, B.lactis [Probiotic] 1 each PO DAILY 12/24/18 [History] Opium/Belladonna Alkaloids [Belladonna-Opium 16.2-30 Supp] 1 supp RECTAL Q6HR PRN 12/24/18 [History] Acetaminophen 500 mg PO Q6H PRN 30 Days #30 tablet 12/27/18 [Rx] Past Medical History HEENT History: Reports: Other (See Below) Other HEENT History: wears glasses, has upper denture and lower partial removable denture Cardiovascular History: Reports: High Cholesterol, Hypertension Respiratory History: Reports: None Gastrointestinal History: Reports: None Genitourinary History: Reports: Other (See Below) Other Genitourinary History: hx of prostate cancer, suprapubic catheter Musculoskeletal History: Reports: Arthritis, Gout Other Musculoskeletal History: hx of arthritis in hands Neurological History: Reports: None Psychiatric History: Reports: None Endocrine/Metabolic History: Reports: None Hematologic History: Reports: Blood Transfusion(s), Other (See Below) Other Hematologic History: blood transusion when he had his prostate surgery Immunologic History: Reports: None Oncologic (Cancer) History: Reports: Prostate, Other (See Below) Other Oncologic History: 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 Has a suprapubic catheter Endocrine Surgical History: Reports: None Neurological Surgical History: Reports: Laminectomy Musculoskeletal Surgical History: Reports: Carpal Tunnel Other Oncologic Surgeries/Procedures: prostatectomy Dermatological Surgical History: Reports: Other (See Below) Social & Family History - Family History Family Medical History: Noncontributory Neurological: Reports: Parkinson's Endocrine/Metabolic: Reports: Diabetes, type II - Tobacco Use Smoking Status *Q: Never Smoker Second Hand Smoke Exposure: No - Caffeine Use Caffeine Use: Reports: Coffee Other Caffeine Use: 3 cups per day Caffeine Use Comment: About 3 cup a day - Recreational Drug Use Recreational Drug Use: No ED ROS GENERAL - Review of Systems Review Of Systems: ROS reveals no pertinent complaints other than HPI. ED EXAM, GI/ABD - Physical Exam Exam: See Below (see dictation) Course - Vital Signs Last Recorded V/S: Last Vital Signs Temp 99.6 F 01/05/19 18:07 Pulse 104 H 01/05/19 18:07 Resp 20 01/05/19 18:07 BP 153/64 H 01/05/19 18:07 Pulse Ox 98 01/05/19 18:07 - Orders/Labs/Meds Orders: Active Orders 24 hr Category Date Time Status CULTURE BLOOD [BC] Stat Lab 01/05/19 16:51 Received CULTURE BLOOD [BC] Stat Lab 01/05/19 17:34 Received CULTURE URINE [RM] Stat Lab 01/05/19 15:20 Received Sodium Chloride 0.9% [Normal Saline] 1,000 ml Med 01/05/19 18:30 Active IV STAT Sodium Chloride 0.9% [Saline Flush] Med 01/05/19 16:32 Active 10 ml FLUSH ASDIRECTED PRN Sodium Chloride 0.9% [Saline Flush] Med 01/05/19 16:32 Active 2.5 ml FLUSH ASDIRECTED PRN cefTRIAXone [Rocephin in Dextrose,Iso-Osm 1 GM/50 ML] 1 Med 01/05/19 18:30 Active gm Premix Bag 1 bag IV ONETIME Blood Culture x2 Reflex Set [OM.PC] Stat Oth 01/05/19 16:57 Ordered Saline Lock Insert [OM.PC] Stat Oth 01/05/19 16:32 Ordered Medication Orders Ceftriaxone Sodium/Dextrose 1 (gm/ Premix) 50 mls @ 100 mls/hr IV ONETIME ONE Stop: 01/05/19 18:59 Last Admin: 01/05/19 18:44 Dose: 100 mls/hr Sodium Chloride (Normal Saline) 1,000 mls @ 999 mls/hr IV STAT ONE Stop: 01/05/19 19:30 Last Admin: 01/05/19 18:41 Dose: 999 mls/hr Sodium Chloride (Saline Flush) 10 ml FLUSH ASDIRECTED PRN PRN Reason: Keep Vein Open Last Admin: 01/05/19 17:22 Dose: 10 ml Sodium Chloride (Saline Flush) 2.5 ml FLUSH ASDIRECTED PRN PRN Reason: Keep Vein Open Last Admin: 01/05/19 17:22 Dose: 2.5 ml Labs: Laboratory Tests 01/05/19 01/05/19 01/05/19 Range/Units 15:20 16:51 16:51 WBC 12.11 H (4.0-11.0) K/uL RBC 3.34 L (4.50-5.90) M/uL Hgb 10.2 L (13.0-17.0) g/dL Hct 31.0 L (38.0-50.0) % MCV 92.8 (80.0-98.0) fL MCH 30.5 (27.0-32.0) pg MCHC 32.9 (31.0-37.0) g/dL RDW Std Deviation 52.0 (28.0-62.0) fl RDW Coeff of Jeanie 15 (11.0-15.0) % Plt Count 442 H (150-400) K/uL MPV 8.30 (7.40-12.00) fL Neut % (Auto) 81.3 H (48.0-80.0) % Lymph % (Auto) 9.4 L (16.0-40.0) % Story % (Auto) 8.9 (0.0-15.0) % Eos % (Auto) 0.2 (0.0-7.0) % Baso % (Auto) 0.2 (0.0-1.5) % Neut # (Auto) 9.8 H (1.4-5.7) K/uL Lymph # (Auto) 1.1 (0.6-2.4) K/uL Story # (Auto) 1.1 H (0.0-0.8) K/uL Eos # (Auto) 0.0 (0.0-0.7) K/uL Baso # (Auto) 0.0 (0.0-0.1) K/uL Nucleated RBC % 0.0 /100WBC Nucleated RBCs # 0 K/uL INR 1.03 Sodium (136-148) mmol/L Potassium (3.5-5.1) mmol/L Chloride (98-107) mmol/L Carbon Dioxide (21.0-32.0) mmol/L BUN (7.0-18.0) mg/dL Creatinine (0.8-1.3) mg/dL Est Cr Clr Drug Dosing mL/min Estimated GFR (MDRD) ml/min Glucose (74-106) mg/dL Calcium (8.5-10.1) mg/dL Total Bilirubin (0.2-1.0) mg/dL AST (15-37) IU/L ALT (14-63) IU/L Alkaline Phosphatase (46-116) U/L Total Protein (6.4-8.2) g/dL Albumin (3.4-5.0) g/dL Globulin (2.6-4.0) g/dL Albumin/Globulin Ratio (0.9-1.6) Urine Color BROWN Urine Appearance CLOUDY Urine pH 7.0 (5.0-8.0) Ur Specific [place] 1.020 (1.001-1.035) Urine Protein >=300 H (NEGATIVE) mg/dL Urine Glucose (UA) 100 H (NEGATIVE) mg/dL Urine Ketones 15 H (NEGATIVE) mg/dL Urine Occult Blood LARGE H (NEGATIVE) Urine Nitrite POSITIVE H (NEGATIVE) Urine Bilirubin LARGE H (NEGATIVE) Urine Ictotest NEGATIVE Urine Urobilinogen 2.0 H (<2.0) EU/dL Ur Leukocyte Esterase SMALL H (NEGATIVE) Urine RBC TOO NUMEROUS TO CT (0-2/HPF) Urine WBC 8-12 (0-5/HPF) Ur Epithelial Cells NOT SEEN (NONE-FEW) Amorphous Sediment RARE (NEGATIVE) Urine Bacteria 1+ H (NEGATIVE) Urine Mucus RARE (NONE-MOD) 01/05/19 Range/Units 16:51 WBC (4.0-11.0) K/uL RBC (4.50-5.90) M/uL Hgb (13.0-17.0) g/dL Hct (38.0-50.0) % MCV (80.0-98.0) fL MCH (27.0-32.0) pg MCHC (31.0-37.0) g/dL RDW Std Deviation (28.0-62.0) fl RDW Coeff of Jeanie (11.0-15.0) % Plt Count (150-400) K/uL MPV (7.40-12.00) fL Neut % (Auto) (48.0-80.0) % Lymph % (Auto) (16.0-40.0) % Story % (Auto) (0.0-15.0) % Eos % (Auto) (0.0-7.0) % Baso % (Auto) (0.0-1.5) % Neut # (Auto) (1.4-5.7) K/uL Lymph # (Auto) (0.6-2.4) K/uL Story # (Auto) (0.0-0.8) K/uL Eos # (Auto) (0.0-0.7) K/uL Baso # (Auto) (0.0-0.1) K/uL Nucleated RBC % /100WBC Nucleated RBCs # K/uL INR Sodium 140 (136-148) mmol/L Potassium 3.9 (3.5-5.1) mmol/L Chloride 101 (98-107) mmol/L Carbon Dioxide 26.2 (21.0-32.0) mmol/L BUN 18 (7.0-18.0) mg/dL Creatinine 1.2 (0.8-1.3) mg/dL Est Cr Clr Drug Dosing 47.43 mL/min Estimated GFR (MDRD) 58.6 ml/min Glucose 115 H (74-106) mg/dL Calcium 9.3 (8.5-10.1) mg/dL Total Bilirubin 0.5 (0.2-1.0) mg/dL AST 22 (15-37) IU/L ALT 28 (14-63) IU/L Alkaline Phosphatase 120 H (46-116) U/L Total Protein 5.9 L (6.4-8.2) g/dL Albumin 2.4 L (3.4-5.0) g/dL Globulin 3.5 (2.6-4.0) g/dL Albumin/Globulin Ratio 0.7 L (0.9-1.6) Urine Color Urine Appearance Urine pH (5.0-8.0) Ur Specific [place] (1.001-1.035) Urine Protein (NEGATIVE) mg/dL Urine Glucose (UA) (NEGATIVE) mg/dL Urine Ketones (NEGATIVE) mg/dL Urine Occult Blood (NEGATIVE) Urine Nitrite (NEGATIVE) Urine Bilirubin (NEGATIVE) Urine Ictotest Urine Urobilinogen (<2.0) EU/dL Ur Leukocyte Esterase (NEGATIVE) Urine RBC (0-2/HPF) Urine WBC (0-5/HPF) Ur Epithelial Cells (NONE-FEW) Amorphous Sediment (NEGATIVE) Urine Bacteria (NEGATIVE) Urine Mucus (NONE-MOD) Meds: Medications Generic Name Dose Route Start Last Admin Trade Name Freq PRN Reason Stop Dose Admin Ceftriaxone Sodium/Dextrose 1 50 mls @ 100 mls/hr 01/05/19 18:30 01/05/19 18: 44 gm/ Premix IV 01/05/19 18:59 100 mls/hr ONETIME ONE Administration Sodium Chloride 1,000 mls @ 999 mls/hr 01/05/19 18:30 01/05/19 18:41 Normal Saline IV 01/05/19 19:30 999 mls/hr STAT ONE Administration Sodium Chloride 10 ml 01/05/19 16:32 01/05/19 17:22 Saline Flush FLUSH 10 ml ASDIRECTED PRN Administration Keep Vein Open Sodium Chloride 2.5 ml 01/05/19 16:32 01/05/19 17:22 Saline Flush FLUSH 2.5 ml ASDIRECTED PRN Administration Keep Vein Open Discontinued Medications Generic Name Dose Route Start Last Admin Trade Name Freq PRN Reason Stop Dose Admin Morphine Sulfate 4 mg 01/05/19 16:57 01/05/19 17:22 Morphine IVPUSH 01/05/19 16:58 4 mg ONETIME ONE Administration Departure - Departure Time of Disposition: 18:48 Disposition: Refer to Observation Condition: Good Clinical Impression: Leukocytosis, Abdominal pain UTI (urinary tract infection) Qualifiers: Urinary tract infection type: site unspecified Hematuria presence: with hematuria Qualified Code(s): N39.0 - Urinary tract infection, site not specified - Discharge Information Referrals: PCP,Unobtain [Ordering Only Provider] - Forms: ED Department Discharge - My Orders Last 24 Hours: My Active Orders 01/05/19 15:20 CULTURE URINE [RM] Stat 01/05/19 16:32 Sodium Chloride 0.9% [Saline Flush] 10 ml FLUSH ASDIRECTED PRN Sodium Chloride 0.9% [Saline Flush] 2.5 ml FLUSH ASDIRECTED PRN Saline Lock Insert [OM.PC] Stat 01/05/19 16:51 CULTURE BLOOD [BC] Stat 01/05/19 16:57 Blood Culture x2 Reflex Set [OM.PC] Stat 01/05/19 17:34 CULTURE BLOOD [BC] Stat 01/05/19 18:30 Sodium Chloride 0.9% [Normal Saline] 1,000 ml IV STAT cefTRIAXone [Rocephin in Dextrose,Iso-Osm 1 GM/50 ML] 1 gm Premix Bag 1 bag IV ONETIME - Assessment/Plan Last 24 Hours: My Active Orders 01/05/19 15:20 CULTURE URINE [RM] Stat 01/05/19 16:32 Sodium Chloride 0.9% [Saline Flush] 10 ml FLUSH ASDIRECTED PRN Sodium Chloride 0.9% [Saline Flush] 2.5 ml FLUSH ASDIRECTED PRN Saline Lock Insert [OM.PC] Stat 01/05/19 16:51 CULTURE BLOOD [BC] Stat 01/05/19 16:57 Blood Culture x2 Reflex Set [OM.PC] Stat 01/05/19 17:34 CULTURE BLOOD [BC] Stat 01/05/19 18:30 Sodium Chloride 0.9% [Normal Saline] 1,000 ml IV STAT cefTRIAXone [Rocephin in Dextrose,Iso-Osm 1 GM/50 ML] 1 gm Premix Bag 1 bag IV ONETIME
--- NOTE | 2019-01-05 18:25 | CR ---
Indication: Pain, Weakness Technique: An AP view of the chest was obtained portably Comparison: A single AP portable of the chest was obtained. Findings: The heart is normal in size. The lungs are clear. No infiltrate, pleural effusion, or pneumothorax is identified. A right sided Port-A-Cath is identified. Impression: No acute cardiopulmonary process. Dictated by Gosia Coronel MD @ Jan 05 2019 6:22PM Signed by Dr. Gosia Coronel @ Jan 05 2019 6:23PM
[2019-01-05] MEDS ORDERED: Sodium Chloride 0.9% 1,000 ML IV ONE (18:30)
[2019-01-05] MEDS ORDERED: cefTRIAXone 1 GM in Premix Bag 1 BAG IV ONE (18:30)
[2019-01-05] MEDS ORDERED: HYDROmorphone 1 MG/ML Syringe IVPUSH ONE (18:46)
--- NOTE | 2019-01-05 20:11 | CR ---
INDICATION: Abdominal pain TECHNIQUE: Abdominal radiograph 2 view COMPARISON: None FINDINGS: Bowel: The bowel gas pattern is normal without evidence of bowel obstruction. Multiple surgical clips are present within the pelvis likely from previous marla dissection. Soft tissue: No evidence of pneumoperitoneum present. No suspicious calcifications noted. Bone: Unremarkable for age. IMPRESSION: 1. Unremarkable appearance of the visualized abdomen. Dictated by Nicholas Duke MD @ 01/05/2019 8:09:55 PM Dictated by: Nicholas Duke MD @ 01/05/2019 20:10:03 (Electronically Signed)
[2019-01-05] MEDS ORDERED: HYDROmorphone 1 MG/ML Syringe IVPUSH PRN (20:18)
[2019-01-05] MEDS ORDERED: Polyethylene Glycol 3350 Powder 17 GM Packet PO PRN (20:22)
[2019-01-05] MEDS ORDERED: Acetaminophen 500 MG Tab PO PRN (20:24)
[2019-01-05] MEDS ORDERED: cefTRIAXone 1 GM in Sodium Chloride 0.9% 50 ML IV SCH (20:30)
--- NOTE | 2019-01-05 20:32 | PCM.HP.2 ---
H&P History of Present Illness - General Date of Service: 01/05/19 Admit Problem/Dx: Admission Diagnosis/Problem Admission Diagnosis/Problem UTI (urinary tract infection) due to urinary indwelling catheter Source of Information: Patient, Family - History of Present Illness Initial Comments - Free Text/Narative: patient is a 78-year-old male with significant past medical history of osteosarcoma and Bladder cancer requiring a suprapubic catheter; multiple treatments w/ chemotherapy and radiation; presenting today with increasing abdominal pain with new onset back pain. Patient states back pain began roughly 1-2 hours posttransfusion; received one unit this afternoon after which he was feeling achy and new onset back pain. States back pain is new and despite taking pain medication could not find a comfortable position. Initially ascribed pain to constipation after having no bowel movement for 2 days; attempted to use Sprite and MiraLAX with no relief. Patient has been passing gas and last meal was in the a.m. prior to transfusion. Patient denies any fevers, chills, rashes. Has been having chronic blood in urine secondary to bladder cancer; requiring multiple transfusions at increasingly shorter intervals. Patient has lost 35 pounds in the past year and was recently hospitalized here at [facility] with fatigue and weakness postchemotherapy. Last chemotherapy session was December 07. Pt. also mentions increased duration of bladder spasms despite taking medications prescribed for such symptoms. Onset of Symptoms: Reports: Today Pelvic Pain Score (Numeric/FACES): 9 - Related Data Allergies/Adverse Reactions: Allergies Allergy/AdvReac Type Severity Reaction Status Date / Time No Known Allergies Allergy Verified 01/05/19 20:30 Home Medications: Home Meds oxyCODONE HCl/Acetaminophen [Percocet 5-325 mg Tablet] 1 tab PO QID 11/07/18 [ History] Fesoterodine Fumarate [Toviaz] 8 mg PO DAILY 12/24/18 [History] L.acidoph,Paracasei, B.lactis [Probiotic] 1 each PO DAILY 12/24/18 [History] Opium/Belladonna Alkaloids [Belladonna-Opium 16.2-30 Supp] 1 supp RECTAL Q6HR PRN 12/24/18 [History] Acetaminophen 500 mg PO Q6H PRN 30 Days #30 tablet 12/27/18 [Rx] Past Medical History HEENT History: Reports: Other (See Below) Other HEENT History: wears glasses, has upper denture and lower partial removable denture Cardiovascular History: Reports: High Cholesterol, Hypertension Respiratory History: Reports: None Gastrointestinal History: Reports: None Genitourinary History: Reports: Other (See Below) Other Genitourinary History: hx of prostate cancer, suprapubic catheter Musculoskeletal History: Reports: Arthritis, Gout Other Musculoskeletal History: hx of arthritis in hands Neurological History: Reports: None Psychiatric History: Reports: None Endocrine/Metabolic History: Reports: None Hematologic History: Reports: Blood Transfusion(s), Other (See Below) Other Hematologic History: blood transusion when he had his prostate surgery Immunologic History: Reports: None Oncologic (Cancer) History: Reports: Prostate, Other (See Below) Other Oncologic History: 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 Has a suprapubic catheter Endocrine Surgical History: Reports: None Neurological Surgical History: Reports: Laminectomy Musculoskeletal Surgical History: Reports: Carpal Tunnel Other Oncologic Surgeries/Procedures: prostatectomy Dermatological Surgical History: Reports: Other (See Below) Social & Family History - Family History Family Medical History: Noncontributory Neurological: Reports: Parkinson's Endocrine/Metabolic: Reports: Diabetes, type II - Tobacco Use Smoking Status *Q: Never Smoker Second Hand Smoke Exposure: No - Caffeine Use Caffeine Use: Reports: Coffee Other Caffeine Use: 3 cups per day Caffeine Use Comment: About 3 cup a day - Recreational Drug Use Recreational Drug Use: No H&P Review of Systems - Review of Systems: Review Of Systems: See Below General: Reports: Malaise, Weakness, Fatigue, Weight Loss. Denies: Fever, Chills HEENT: Denies: Vertigo, Visual Changes (dry mouth ) Pulmonary: Denies: Shortness of Breath, Cough Cardiovascular: Denies: Chest Pain, Palpitations, Edema Gastrointestinal: Reports: Abdominal Pain, Constipation, Decreased Appetite, Nausea. Denies: Diarrhea, Difficulty Swallowing, Melena, Vomiting Genitourinary: Reports: Hematuria. Denies: Burning, Urgency, Flank Pain Musculoskeletal: Reports: Back Pain Skin: Reports: No Symptoms Psychiatric: Denies: Confusion, Depression, Mood Lability, Anxiety Neurological: Denies: Confusion, Dizziness, Headache Exam - Exam Exam: See Below - Vital Signs Vital Signs: Last Vital Signs Temp 99.6 F 01/05/19 18:07 Pulse 104 H 01/05/19 18:07 Resp 20 01/05/19 18:07 BP 153/64 H 01/05/19 18:07 Pulse Ox 98 01/05/19 18:07 Weight: 148 lb - Exam Quality Assessment: No: Supplemental Oxygen General: Alert, Oriented, Lethargic, Other (cachectic/frail, pale) HEENT: EOMI, Hearing Intact, Pupils Reactive. No: Mucosa Moist & [place] Neck: Supple, Trachea Midline Lungs: Clear to Auscultation, Normal Respiratory Effort Cardiovascular: Regular Rate, Regular Rhythm GI/Abdominal Exam: Distended (tense bladder; easily palpable w/ firmness + tenderness of abdomen w/ left > right..no rebound tenderness ), Guarding, Tender , Abnormal Bowel Sounds (hypoactive), Other. No: Rebound (Male) Exam: Circumcised, Suprapubic Fullness, Other (suprapubic cath in- situ w/ dry blood around insertion site, no obvious sign of infection ; bladder bag attached to right leg w/ blood-urine mix ) Back Exam: No: CVA Tenderness (L), CVA Tenderness (R), Decreased Range of Motion , Muscle Spasm, Paraspinal Tenderness, Vertebral Tenderness Extremities: Normal Inspection, Non-Tender, No Pedal Edema Skin: Warm, Dry, Intact Neurological: Cranial Nerves Intact Neuro Extensive - Mental Status: Alert, Oriented x3, Normal Mood/Affect, Normal Cognition Neuro Extensive - Motor, Sensory, Reflexes: CN II-XII Intact Psychiatric: Alert, Normal Mood - Patient Data Lab Results Last 24 hrs: Laboratory Results - last 24 hr 01/05/19 01/05/19 01/05/19 Range/Units 15:20 16:51 16:51 WBC 12.11 H (4.0-11.0) K/uL RBC 3.34 L (4.50-5.90) M/uL Hgb 10.2 L (13.0-17.0) g/dL Hct 31.0 L (38.0-50.0) % MCV 92.8 (80.0-98.0) fL MCH 30.5 (27.0-32.0) pg MCHC 32.9 (31.0-37.0) g/dL RDW Std Deviation 52.0 (28.0-62.0) fl RDW Coeff of Jeanie 15 (11.0-15.0) % Plt Count 442 H (150-400) K/uL MPV 8.30 (7.40-12.00) fL Neut % (Auto) 81.3 H (48.0-80.0) % Lymph % (Auto) 9.4 L (16.0-40.0) % Lynn % (Auto) 8.9 (0.0-15.0) % Eos % (Auto) 0.2 (0.0-7.0) % Baso % (Auto) 0.2 (0.0-1.5) % Neut # (Auto) 9.8 H (1.4-5.7) K/uL Lymph # (Auto) 1.1 (0.6-2.4) K/uL Lynn # (Auto) 1.1 H (0.0-0.8) K/uL Eos # (Auto) 0.0 (0.0-0.7) K/uL Baso # (Auto) 0.0 (0.0-0.1) K/uL Nucleated RBC % 0.0 /100WBC Nucleated RBCs # 0 K/uL INR 1.03 Sodium (136-148) mmol/L Potassium (3.5-5.1) mmol/L Chloride (98-107) mmol/L Carbon Dioxide (21.0-32.0) mmol/L BUN (7.0-18.0) mg/dL Creatinine (0.8-1.3) mg/dL Est Cr Clr Drug Dosing mL/min Estimated GFR (MDRD) ml/min Glucose (74-106) mg/dL Calcium (8.5-10.1) mg/dL Total Bilirubin (0.2-1.0) mg/dL AST (15-37) IU/L ALT (14-63) IU/L Alkaline Phosphatase (46-116) U/L Total Protein (6.4-8.2) g/dL Albumin (3.4-5.0) g/dL Globulin (2.6-4.0) g/dL Albumin/Globulin Ratio (0.9-1.6) Urine Color BROWN Urine Appearance CLOUDY Urine pH 7.0 (5.0-8.0) Ur Specific [place] 1.020 (1.001-1.035) Urine Protein >=300 H (NEGATIVE) mg/dL Urine Glucose (UA) 100 H (NEGATIVE) mg/dL Urine Ketones 15 H (NEGATIVE) mg/dL Urine Occult Blood LARGE H (NEGATIVE) Urine Nitrite POSITIVE H (NEGATIVE) Urine Bilirubin LARGE H (NEGATIVE) Urine Ictotest NEGATIVE Urine Urobilinogen 2.0 H (<2.0) EU/dL Ur Leukocyte Esterase SMALL H (NEGATIVE) Urine RBC TOO NUMEROUS TO CT (0-2/HPF) Urine WBC 8-12 (0-5/HPF) Ur Epithelial Cells NOT SEEN (NONE-FEW) Amorphous Sediment RARE (NEGATIVE) Urine Bacteria 1+ H (NEGATIVE) Urine Mucus RARE (NONE-MOD) 01/05/19 Range/Units 16:51 WBC (4.0-11.0) K/uL RBC (4.50-5.90) M/uL Hgb (13.0-17.0) g/dL Hct (38.0-50.0) % MCV (80.0-98.0) fL MCH (27.0-32.0) pg MCHC (31.0-37.0) g/dL RDW Std Deviation (28.0-62.0) fl RDW Coeff of Jeanie (11.0-15.0) % Plt Count (150-400) K/uL MPV (7.40-12.00) fL Neut % (Auto) (48.0-80.0) % Lymph % (Auto) (16.0-40.0) % Lynn % (Auto) (0.0-15.0) % Eos % (Auto) (0.0-7.0) % Baso % (Auto) (0.0-1.5) % Neut # (Auto) (1.4-5.7) K/uL Lymph # (Auto) (0.6-2.4) K/uL Lynn # (Auto) (0.0-0.8) K/uL Eos # (Auto) (0.0-0.7) K/uL Baso # (Auto) (0.0-0.1) K/uL Nucleated RBC % /100WBC Nucleated RBCs # K/uL INR Sodium 140 (136-148) mmol/L Potassium 3.9 (3.5-5.1) mmol/L Chloride 101 (98-107) mmol/L Carbon Dioxide 26.2 (21.0-32.0) mmol/L BUN 18 (7.0-18.0) mg/dL Creatinine 1.2 (0.8-1.3) mg/dL Est Cr Clr Drug Dosing 47.43 mL/min Estimated GFR (MDRD) 58.6 ml/min Glucose 115 H (74-106) mg/dL Calcium 9.3 (8.5-10.1) mg/dL Total Bilirubin 0.5 (0.2-1.0) mg/dL AST 22 (15-37) IU/L ALT 28 (14-63) IU/L Alkaline Phosphatase 120 H (46-116) U/L Total Protein 5.9 L (6.4-8.2) g/dL Albumin 2.4 L (3.4-5.0) g/dL Globulin 3.5 (2.6-4.0) g/dL Albumin/Globulin Ratio 0.7 L (0.9-1.6) Urine Color Urine Appearance Urine pH (5.0-8.0) Ur Specific [place] (1.001-1.035) Urine Protein (NEGATIVE) mg/dL Urine Glucose (UA) (NEGATIVE) mg/dL Urine Ketones (NEGATIVE) mg/dL Urine Occult Blood (NEGATIVE) Urine Nitrite (NEGATIVE) Urine Bilirubin (NEGATIVE) Urine Ictotest Urine Urobilinogen (<2.0) EU/dL Ur Leukocyte Esterase (NEGATIVE) Urine RBC (0-2/HPF) Urine WBC (0-5/HPF) Ur Epithelial Cells (NONE-FEW) Amorphous Sediment (NEGATIVE) Urine Bacteria (NEGATIVE) Urine Mucus (NONE-MOD) Result Diagrams: 01/05/19 16:51 01/05/19 16:51 Problem List Initiated/Reviewed/Updated: Yes Orders Last 24hrs: Active Orders 24 hr Category Date Time Status Admission Status [Patient Status] [ADT] Stat ADT 01/05/19 18:49 Active Intake and Output [RC] ASDIRECTED Care 01/05/19 20:17 Ordered Up With Assistance [RC] ASDIRECTED Care 01/05/19 20:17 Ordered Vital Signs [RC] PER UNIT ROUTINE Care 01/05/19 20:17 Ordered High Fiber Diet [DIET] Diet 01/06/19 Breakfast Ordered CULTURE BLOOD [BC] Stat Lab 01/05/19 16:51 Received CULTURE BLOOD [BC] Stat Lab 01/05/19 17:34 Received CULTURE URINE [RM] Stat Lab 01/05/19 15:20 Received Acetaminophen [Tylenol Extra Strength] Med 01/05/19 20:24 Ordered 500 mg PO Q6H PRN Acetaminophen/oxyCODONE [Percocet 325-5 MG] Med 01/06/19 00:00 Ordered 1 tab PO QID Fesoterodine Fumarate [Toviaz] Med 01/06/19 09:00 Ordered 8 mg PO DAILY HYDROmorphone [Dilaudid] Med 01/05/19 20:18 Ordered 1 mg IVPUSH Q3H PRN Polyethylene Glycol 3350 [MiraLAX] Med 01/05/19 20:22 Ordered 17 gm PO BEDTIME PRN Sodium Chloride 0.9% [Saline Flush] Med 01/05/19 16:32 Active 10 ml FLUSH ASDIRECTED PRN Sodium Chloride 0.9% [Saline Flush] Med 01/05/19 16:32 Active 2.5 ml FLUSH ASDIRECTED PRN cefTRIAXone [Rocephin] 1 gm Med 01/05/19 20:30 Ordered Sodium Chloride 0.9% [Normal Saline] 50 ml IV Q24H Blood Culture x2 Reflex Set [OM.PC] Stat Oth 01/05/19 16:57 Ordered Saline Lock Insert [OM.PC] Stat Oth 01/05/19 16:32 Ordered Code Status [Resuscitation Status] Stat Resus Stat 01/05/19 20:23 Ordered Medication Orders Acetaminophen (Tylenol Extra Strength) 500 mg PO Q6H PRN PRN Reason: Fever Hydromorphone HCl (Dilaudid) 1 mg IVPUSH Q3H PRN PRN Reason: Pain Ceftriaxone Sodium 1 gm/ (Sodium Chloride) 50 mls @ 100 mls/hr IV Q24H ZOHAIB Non-Formulary Medication (Fesoterodine Fumarate [Toviaz]) 8 mg PO DAILY ZOHAIB Oxycodone/Acetaminophen (Percocet 325-5 Mg) 1 tab PO QID ZOHAIB Polyethylene Glycol (Miralax) 17 gm PO BEDTIME PRN PRN Reason: Constipation Sodium Chloride (Saline Flush) 10 ml FLUSH ASDIRECTED PRN PRN Reason: Keep Vein Open Last Admin: 01/05/19 17:22 Dose: 10 ml Sodium Chloride (Saline Flush) 2.5 ml FLUSH ASDIRECTED PRN PRN Reason: Keep Vein Open Last Admin: 01/05/19 17:22 Dose: 2.5 ml Assessment/Plan Comment:: 1. UTI with history of bladder cancer and sarcoma with suprapubic catheter in situ. 2. Back pain secondary to UTI versus possibly advancement of bladder cancer versus constipation. 3.leukocytosis 3. past medical history of bladder cancer and sarcoma. plan 1. Admit to observation. DNR/DNI. Vitals per routine. Up with assistance. Intake /outtake routine. Diet: high-fiber 2. UTI with suprapubic catheter:continue ceftriaxone as previous UTI was sensitive to Rocephin; will adjust accordingly secondary to urine culture results. 3. Back pain secondary to UTI versus constipation versus advancement of cancer: high-fiber diet, MiraLAX, Dilaudid 1 mg every 3 hours when necessary. 4. Had extensive conversation with patient and family regarding CODE STATUS and goals of care; patient/family currently undergoing conversations about possibly/ formally consulting hospice/comfort care:pt is resident at [facility];would like to consider options while back at group home. Consider sublingual morphine at discharge to facilitate comfort care measures.
[2019-01-05] MEDS ORDERED: Ondansetron 4 MG/2 ML SDV IV PRN (20:45)
[2019-01-05] MEDS: Acetaminophen/oxyCODONE 325-5 MG Tab PO SCH (23:37)
[2019-01-06] MEDS: Acetaminophen/oxyCODONE 325-5 MG Tab PO SCH ×2 (05:55→11:33)
[2019-01-06] MEDS ORDERED: FESOTERODINE FUMARATE 8 MG PO SCH (09:00)
--- NOTE | 2019-01-06 09:57 | PCM.DCSUM1 ---
<Hoang Linn - Last Filed: 01/06/19 11:21> Discharge Summary - Hospital Course Free Text/Narrative:: Discharge summary Admission date January 05, 2019 Discharge date December Admission diagnoses: UTI with history of bladder cancer and suprapubic catheter in situ Back pain possibly secondary to bladder cancer/pyelonephritis versus advancing cancer Constipation Discharge diagnoses: UTI with history of bladder cancer and suprapubic catheter in situ New-onset back pain secondary to above versus constipation and cancer Past medical history: rheumatoid arthritis,Sarcoma Consultations: none Procedures: none Hospital course: patient is a 78-year-old male with past medical history of bladder cancer, osteosarcoma, presenting yesterday with increasing back pain after 1 unit of blood transfusion given at cancer Center. Patient took home dose of Percocet with no relief of pain; proceeded to emergency department here at [facility] for pain relief. On arrival suprapubic catheter was changed; last change was 3 weeks ago ; adalid blood noticed in external bladder. Patient found to have positive UA given 1 dose of ceftriaxone and bolus of fluids. Ongoing conversation regarding patient's health status goals of care suggested patient would like to transition over to comfort care/hospice. Ultimately decided to defer other testing and treatments; provided patient with Dilaudid-hydromorphone with resolution of symptoms including back pain. Following morning patient was stable and not complaining of any new pain or discomfort; patient tolerated new medication of Dilaudid. Patient and family agree comfort care hospice conversation with [facility] was performed and are working on the transition. Hydromorphone prescription provided to hospice care at [facility]; patient transferred back to [facility] in afternoon. Discharge condition: Stable/pain controlled Disposition: [facility] Discharge medications: oxyCODONE HCl/Acetaminophen [Percocet 5-325 mg Tablet] 1 tab PO QID 11/07/18 [ History] Fesoterodine Fumarate [Toviaz] 8 mg PO DAILY 12/24/18 [History] L.acidoph,Paracasei, B.lactis [Probiotic] 1 each PO DAILY 12/24/18 [History] Opium/Belladonna Alkaloids [Belladonna-Opium 16.2-30 Supp] 1 supp RECTAL Q6HR PRN 12/24/18 [History] Acetaminophen 500 mg PO Q6H PRN 30 Days #30 tablet 12/27/18 [Rx] HYDROmorphone [Dilaudid] 2 mg PO Q4H PRN 7 Days #42 tab 01/06/19 [Rx] Discharge instructions: she denies a follow-up [facility] and [facility] for pain management; hospice comfort care,type provider if increasing pain, nausea, discomfort, or fever develops. Follow-up:[facility]. - Discharge Data Discharge Date: 01/06/19 Discharge Disposition: DC/Tfer to [facility] Condition: Fair - Patient Instructions Diet: Usual Diet as Tolerated Notify Provider of: Fever, Increased Pain - Discharge Plan *PRESCRIPTION DRUG MONITORING PROGRAM REVIEWED*: No *COPY OF PRESCRIPTION DRUG MONITORING REPORT IN PATIENT MARYSE: No Prescriptions/Med Rec: HYDROmorphone [Dilaudid] 2 mg PO Q4H PRN 7 Days #42 tab PRN Reason: Pain Home Medications: Home Meds oxyCODONE HCl/Acetaminophen [Percocet 5-325 mg Tablet] 1 tab PO QID 11/07/18 [ History] Fesoterodine Fumarate [Toviaz] 8 mg PO DAILY 12/24/18 [History] L.acidoph,Paracasei, B.lactis [Probiotic] 1 each PO DAILY 12/24/18 [History] Opium/Belladonna Alkaloids [Belladonna-Opium 16.2-30 Supp] 1 supp RECTAL Q6HR PRN 12/24/18 [History] Acetaminophen 500 mg PO Q6H PRN 30 Days #30 tablet 12/27/18 [Rx] HYDROmorphone [Dilaudid] 2 mg PO Q4H PRN 7 Days #42 tab 01/06/19 [Rx] Oxygen Therapy Mode: Room Air Patient Handouts: Urinary Tract Infection, Adult Referrals: Atul Syed MD [Primary Care Provider] - - Discharge Summary/Plan Comment DC Time >30 min.: No - Patient Data Vitals - Most Recent: Last Vital Signs Temp 98.3 F 01/06/19 07:34 Pulse 83 01/06/19 07:34 Resp 16 01/06/19 07:34 BP 144/72 H 01/06/19 07:34 Pulse Ox 97 01/06/19 07:34 Weight - Most Recent: 60.736 kg I&O - Last 24 hours: Intake & Output 01/05/19 01/06/19 01/06/19 22:59 06:59 14:59 Intake Total 50 200 Output Total 350 Balance 50 -150 Lab Results - Last 24 hrs: Laboratory Results - last 24 hr 01/05/19 01/05/19 01/05/19 Range/Units 15:20 16:51 16:51 WBC 12.11 H (4.0-11.0) K/uL RBC 3.34 L (4.50-5.90) M/uL Hgb 10.2 L (13.0-17.0) g/dL Hct 31.0 L (38.0-50.0) % MCV 92.8 (80.0-98.0) fL MCH 30.5 (27.0-32.0) pg MCHC 32.9 (31.0-37.0) g/dL RDW Std Deviation 52.0 (28.0-62.0) fl RDW Coeff of Jeanie 15 (11.0-15.0) % Plt Count 442 H (150-400) K/uL MPV 8.30 (7.40-12.00) fL Neut % (Auto) 81.3 H (48.0-80.0) % Lymph % (Auto) 9.4 L (16.0-40.0) % Oliver % (Auto) 8.9 (0.0-15.0) % Eos % (Auto) 0.2 (0.0-7.0) % Baso % (Auto) 0.2 (0.0-1.5) % Neut # (Auto) 9.8 H (1.4-5.7) K/uL Lymph # (Auto) 1.1 (0.6-2.4) K/uL Oliver # (Auto) 1.1 H (0.0-0.8) K/uL Eos # (Auto) 0.0 (0.0-0.7) K/uL Baso # (Auto) 0.0 (0.0-0.1) K/uL Nucleated RBC % 0.0 /100WBC Nucleated RBCs # 0 K/uL INR 1.03 Sodium (136-148) mmol/L Potassium (3.5-5.1) mmol/L Chloride (98-107) mmol/L Carbon Dioxide (21.0-32.0) mmol/L BUN (7.0-18.0) mg/dL Creatinine (0.8-1.3) mg/dL Est Cr Clr Drug Dosing mL/min Estimated GFR (MDRD) ml/min Glucose (74-106) mg/dL Calcium (8.5-10.1) mg/dL Total Bilirubin (0.2-1.0) mg/dL AST (15-37) IU/L ALT (14-63) IU/L Alkaline Phosphatase (46-116) U/L Total Protein (6.4-8.2) g/dL Albumin (3.4-5.0) g/dL Globulin (2.6-4.0) g/dL Albumin/Globulin Ratio (0.9-1.6) Urine Color BROWN Urine Appearance CLOUDY Urine pH 7.0 (5.0-8.0) Ur Specific [place] 1.020 (1.001-1.035) Urine Protein >=300 H (NEGATIVE) mg/dL Urine Glucose (UA) 100 H (NEGATIVE) mg/dL Urine Ketones 15 H (NEGATIVE) mg/dL Urine Occult Blood LARGE H (NEGATIVE) Urine Nitrite POSITIVE H (NEGATIVE) Urine Bilirubin LARGE H (NEGATIVE) Urine Ictotest NEGATIVE Urine Urobilinogen 2.0 H (<2.0) EU/dL Ur Leukocyte Esterase SMALL H (NEGATIVE) Urine RBC TOO NUMEROUS TO CT (0-2/HPF) Urine WBC 8-12 (0-5/HPF) Ur Epithelial Cells NOT SEEN (NONE-FEW) Amorphous Sediment RARE (NEGATIVE) Urine Bacteria 1+ H (NEGATIVE) Urine Mucus RARE (NONE-MOD) 01/05/19 Range/Units 16:51 WBC (4.0-11.0) K/uL RBC (4.50-5.90) M/uL Hgb (13.0-17.0) g/dL Hct (38.0-50.0) % MCV (80.0-98.0) fL MCH (27.0-32.0) pg MCHC (31.0-37.0) g/dL RDW Std Deviation (28.0-62.0) fl RDW Coeff of Jeanie (11.0-15.0) % Plt Count (150-400) K/uL MPV (7.40-12.00) fL Neut % (Auto) (48.0-80.0) % Lymph % (Auto) (16.0-40.0) % Oliver % (Auto) (0.0-15.0) % Eos % (Auto) (0.0-7.0) % Baso % (Auto) (0.0-1.5) % Neut # (Auto) (1.4-5.7) K/uL Lymph # (Auto) (0.6-2.4) K/uL Oliver # (Auto) (0.0-0.8) K/uL Eos # (Auto) (0.0-0.7) K/uL Baso # (Auto) (0.0-0.1) K/uL Nucleated RBC % /100WBC Nucleated RBCs # K/uL INR Sodium 140 (136-148) mmol/L Potassium 3.9 (3.5-5.1) mmol/L Chloride 101 (98-107) mmol/L Carbon Dioxide 26.2 (21.0-32.0) mmol/L BUN 18 (7.0-18.0) mg/dL Creatinine 1.2 (0.8-1.3) mg/dL Est Cr Clr Drug Dosing 47.43 mL/min Estimated GFR (MDRD) 58.6 ml/min Glucose 115 H (74-106) mg/dL Calcium 9.3 (8.5-10.1) mg/dL Total Bilirubin 0.5 (0.2-1.0) mg/dL AST 22 (15-37) IU/L ALT 28 (14-63) IU/L Alkaline Phosphatase 120 H (46-116) U/L Total Protein 5.9 L (6.4-8.2) g/dL Albumin 2.4 L (3.4-5.0) g/dL Globulin 3.5 (2.6-4.0) g/dL Albumin/Globulin Ratio 0.7 L (0.9-1.6) Urine Color Urine Appearance Urine pH (5.0-8.0) Ur Specific [place] (1.001-1.035) Urine Protein (NEGATIVE) mg/dL Urine Glucose (UA) (NEGATIVE) mg/dL Urine Ketones (NEGATIVE) mg/dL Urine Occult Blood (NEGATIVE) Urine Nitrite (NEGATIVE) Urine Bilirubin (NEGATIVE) Urine Ictotest Urine Urobilinogen (<2.0) EU/dL Ur Leukocyte Esterase (NEGATIVE) Urine RBC (0-2/HPF) Urine WBC (0-5/HPF) Ur Epithelial Cells (NONE-FEW) Amorphous Sediment (NEGATIVE) Urine Bacteria (NEGATIVE) Urine Mucus (NONE-MOD) Med Orders - Current: Current Medications Acetaminophen (Tylenol Extra Strength) 500 mg PO Q6H PRN PRN Reason: Fever Hydromorphone HCl (Dilaudid) 1 mg IVPUSH Q3H PRN PRN Reason: Pain Ceftriaxone Sodium 1 gm/ (Sodium Chloride) 50 mls @ 100 mls/hr IV Q24H [facility] Last Admin: 01/05/19 21:02 Dose: 100 mls/hr Ondansetron HCl (Zofran) 8 mg IV Q6H PRN PRN Reason: Nausea/Vomiting Oxycodone/Acetaminophen (Percocet 325-5 Mg) 1 tab PO QID [facility] Last Admin: 01/06/19 05:55 Dose: 1 tab (Fesoterodine Fumarate [Toviaz] 8 Mg) 1 each PO DAILY [facility] Polyethylene Glycol (Miralax) 17 gm PO BEDTIME PRN PRN Reason: Constipation Sodium Chloride (Saline Flush) 10 ml FLUSH ASDIRECTED PRN PRN Reason: Keep Vein Open Last Admin: 01/05/19 17:22 Dose: 10 ml Sodium Chloride (Saline Flush) 2.5 ml FLUSH ASDIRECTED PRN PRN Reason: Keep Vein Open Last Admin: 01/05/19 17:22 Dose: 2.5 ml Discontinued Medications Hydromorphone HCl (Dilaudid) 1 mg IVPUSH ONETIME ONE Stop: 01/05/19 18:47 Last Admin: 01/05/19 19:06 Dose: 1 mg Ceftriaxone Sodium/Dextrose 1 (gm/ Premix) 50 mls @ 100 mls/hr IV ONETIME ONE Stop: 01/05/19 18:59 Last Admin: 01/05/19 18:44 Dose: 100 mls/hr Sodium Chloride (Normal Saline) 1,000 mls @ 999 mls/hr IV STAT ONE Stop: 01/05/19 19:30 Last Admin: 01/05/19 18:41 Dose: 999 mls/hr Morphine Sulfate (Morphine) 4 mg IVPUSH ONETIME ONE Stop: 01/05/19 16:58 Last Admin: 01/05/19 17:22 Dose: 4 mg <Veto Mota J - Last Filed: 01/09/19 11:20> - Patient Data Vitals - Most Recent: Last Vital Signs Temp 37.2 C 01/06/19 11:46 Pulse 86 01/06/19 11:46 Resp 16 01/06/19 11:46 BP 152/72 H 01/06/19 11:46 Pulse Ox 97 01/06/19 11:46 MICHAEL Results - Last 24 hrs: Microbiology 01/05/19 17:34 Aerobic Blood Culture - Preliminary Blood - Venous - Lab Draw NO GROWTH AFTER 3 DAYS Anaerobic Blood Culture - Preliminary NO GROWTH AFTER 3 DAYS 01/05/19 16:51 Aerobic Blood Culture - Preliminary Blood - Venous NO GROWTH AFTER 3 DAYS Anaerobic Blood Culture - Preliminary NO GROWTH AFTER 3 DAYS Med Orders - Current: Current Medications Discontinued Medications Acetaminophen (Tylenol Extra Strength) 500 mg PO Q6H PRN PRN Reason: Fever Hydromorphone HCl (Dilaudid) 1 mg IVPUSH ONETIME ONE Stop: 01/05/19 18:47 Last Admin: 01/05/19 19:06 Dose: 1 mg Hydromorphone HCl (Dilaudid) 1 mg IVPUSH Q3H PRN PRN Reason: Pain Ceftriaxone Sodium/Dextrose 1 (gm/ Premix) 50 mls @ 100 mls/hr IV ONETIME ONE Stop: 01/05/19 18:59 Last Admin: 01/05/19 18:44 Dose: 100 mls/hr Sodium Chloride (Normal Saline) 1,000 mls @ 999 mls/hr IV STAT ONE Stop: 01/05/19 19:30 Last Admin: 01/05/19 18:41 Dose: 999 mls/hr Ceftriaxone Sodium 1 gm/ (Sodium Chloride) 50 mls @ 100 mls/hr IV Q24H [facility] Last Admin: 01/05/19 21:02 Dose: 100 mls/hr Morphine Sulfate (Morphine) 4 mg IVPUSH ONETIME ONE Stop: 01/05/19 16:58 Last Admin: 01/05/19 17:22 Dose: 4 mg Ondansetron HCl (Zofran) 8 mg IV Q6H PRN PRN Reason: Nausea/Vomiting Oxycodone/Acetaminophen (Percocet 325-5 Mg) 1 tab PO QID [facility] Last Admin: 01/06/19 11:33 Dose: 1 tab (Fesoterodine Fumarate [Toviaz] 8 Mg) 1 each PO DAILY [facility] Last Admin: 01/06/19 10:00 Dose: 1 each Polyethylene Glycol (Miralax) 17 gm PO BEDTIME PRN PRN Reason: Constipation Sodium Chloride (Saline Flush) 10 ml FLUSH ASDIRECTED PRN PRN Reason: Keep Vein Open Last Admin: 01/05/19 17:22 Dose: 10 ml Sodium Chloride (Saline Flush) 2.5 ml FLUSH ASDIRECTED PRN PRN Reason: Keep Vein Open Last Admin: 01/05/19 17:22 Dose: 2.5 ml - Free Text/Narrative Note: I have evaluated the patient. I have discussed findings and treatment plan with resident. I agree with the assessment and plan outlined in the following note.
[2019-01-06 11:47] VITALS: BP 152/72
== END 2019-01-06 12:30 ==
LOC: MW.ED 16:24 → MW.MS 18:49
PROVIDERS: ADMIT Internal Medicine; ATTEND Internal Medicine
DX: T83.511A Infection and inflammatory reaction due to indwelling urethral catheter, initial encounter (principal); N39.0 Urinary tract infection, site not specified; M54.9 Dorsalgia, unspecified; K59.00 Constipation, unspecified; I10 Essential (primary) hypertension; C67.9 Malignant neoplasm of bladder, unspecified; C41.9 Malignant neoplasm of bone and articular cartilage, unspecified; M06.9 Rheumatoid arthritis, unspecified; Z66 Do not resuscitate; Z96.0 Presence of urogenital implants; Z85.51 Personal history of malignant neoplasm of bladder; Z79.891 Long term (current) use of opiate analgesic; Z79.899 Other long term (current) drug therapy
CPT/HCPCS: 71045; 74018; 80053; 81001; 81003; 85025; 85610; 87040; 87086; 87088; 87186; 96361; 96365; 96375; 99284; A9270; J0696; J1170; J2270; J7040; J7050; 96366; G0378